=== PATIENT | male | born 1960 | race Caucasian/White ===

== ENCOUNTER 2017-05-22 13:17 | Inpatient (IN) | payer OTHER ==
[~2017-05-22 13:17] MED LIST: LIDOCAINE 2% INJ-PF (20 MG/ML) 10 ML AMPUL ONE; PHENYLEPHRINE HCL INJ/PF 10 MG/1 ML SDV ONE; ROCURONIUM BROMIDE INJ 50 MG/5 ML VIAL IV ONE; VECURONIUM BROMIDE INJ 10 MG VIAL IV ONE
[2017-05-22] MEDS ORDERED: OXYCODONE-ACETAMINOPHEN 5-325 MG TABLET PO ONE (14:13)
[2017-05-22] MEDS ORDERED: PROMETHAZINE HCL 25 MG TABLET PO ONE (14:13)
[2017-05-22] MEDS ORDERED: KETOROLAC TROMETHAMINE INJ/PF 30 MG/1 ML SDV IV ONE (14:14)
--- NOTE | 2017-05-22 14:16 | ER Document Report ---
ED Medical Screen (RME) - General Chief Complaint: Abdominal Pain Stated Complaint: ABDOMINAL PAIN Time Seen by Provider: 05/22/17 14:13 Notes: Patient is complaining of lower center abdominal pain that started yesterday. He has never had this pain previously and has never been told he has any gastrointestinal diseases. He has been a little bit nauseated and belching but no vomiting. [place] as if he might be starting to get constipated, but then he has had 3-4 liquid stools today. No abdominal surgeries. TRAVEL OUTSIDE OF THE [place] IN LAST 30 DAYS: No Past Medical History - Social History Chew tobacco use (# tins/day): No Frequency of alcohol use: None Drug Abuse: None - Past Medical History Cardiac Medical History: Reports: Hx Hypertension Renal/ Medical History: Denies: Hx Peritoneal Dialysis Surgical Hx: Negative - Immunizations Hx Diphtheria, Pertussis, Tetanus Vaccination: Yes Physical Exam - Vital signs Vitals: Resp 16 05/22/17 14:07 Course - Vital Signs Vital signs: Temp Pulse Resp BP Pulse Ox 16 05/22/17 14:07
[2017-05-22 14:44] LABS: ABSOLUTE BASOPHILS # (AUTO) 0.1 10^3/uL (0.0-0.2); ABSOLUTE LYMPHOCYTES (AUTO) 1.5 10^3/uL (0.5-4.7); ABSOLUTE MONOCYTES (AUTO) 1.3 10^3/uL (0.1-1.4); ABSOLUTE NEUT (AUTO) 15.7 10^3/uL (1.7-8.2); BASOPHILS % (AUTO) 0.5 % (0-2); EOSINOPHILS % (AUTO) 0.2 % (0-6); HEMATOCRIT 48.2 % (37.9-51.0); HGB HCT DIFFERENCE -0.2; LYMPHOCYTES % (AUTO) 7.9 % (13-45); MEAN CORPUSCULAR HEMOGLOBIN 30.9 pg (27.0-33.4); MEAN CORPUSCULAR HGB CONC 33.3 g/dL (32.0-36.0); MEAN CORPUSCULAR VOLUME 93 fl (80-97); MONOCYTES % (AUTO) 6.9 % (3-13); RED CELL DISTRIBUTION WIDTH 13.3 % (11.5-14.0); SEGMENTED NEUTROPHILS % (AUTO) 84.5 % (42-78); WHITE BLOOD COUNT 18.5 10^3/uL (4.0-10.5)
[2017-05-22 15:07] LABS: ALANINE AMINOTRANSFERASE 23 U/L (21-72); ALBUMIN 4.1 g/dL (3.5-5.0); ALKALINE PHOSPHATASE 92 U/L (38-126); ANION GAP 13 (5-19); ASPARTATE AMINO TRANSFERASE 35 U/L (17-59); BILIRUBIN,DIRECT 0.5 mg/dL (0.0-0.4); BILIRUBIN,TOTAL 1.4 mg/dL (0.2-1.3); BLOOD UREA NITROGEN 14 mg/dL (7-20); CALCIUM 9.7 mg/dL (8.4-10.2); CARBON DIOXIDE 24 mmol/L (22-30); CHLORIDE 101 mmol/L (98-107); CREATININE RESULT 1.12 mg/dL (0.52-1.25); GLUCOSE 142 mg/dL (75-110); LIPASE 57.3 U/L (23-300); POTASSIUM 4.1 mmol/L (3.6-5.0); SODIUM 138.4 mmol/L (137-145); TOTAL PROTEIN 7.7 g/dL (6.3-8.2)
--- NOTE | 2017-05-22 15:53 | ER Document Report ---
ED GI/ - General Chief Complaint: Abdominal Pain Stated Complaint: ABDOMINAL PAIN Time Seen by Provider: 05/22/17 14:13 Notes: Patient is a 56-year-old male, past medical history hypertension, hyperlipidemia , presents with 1 day of diffuse abdominal pain, worse in his lower abdomen. He thought he was constipated, but had 4 loose bowel movements earlier today. He also having mild nausea and has not been able to urinate today due to intense pain when he tries. He denies fevers, vomiting, flank pain, hematuria, back pain, chest pain or shortness of breath. TRAVEL OUTSIDE OF THE [place] IN LAST 30 DAYS: No - Related Data Allergies/Adverse Reactions: No Known Allergies Allergy (Verified 05/22/17 15:50) Past Medical History - General Information source: Patient - Social History Smoking Status: Current Every Day Smoker Chew tobacco use (# tins/day): No Frequency of alcohol use: None Drug Abuse: None Family History: Reviewed & Not Pertinent Patient has suicidal ideation: No Patient has homicidal ideation: No - Past Medical History Cardiac Medical History: Reports: Hx Hypertension Renal/ Medical History: Denies: Hx Peritoneal Dialysis Surgical Hx: Negative - Immunizations Hx Diphtheria, Pertussis, Tetanus Vaccination: Yes Review of Systems - Review of Systems Notes: REVIEW OF SYSTEMS: CONSTITUTIONAL: -fevers, -chills EENT: -eye pain, -difficulty swallowing, -nasal congestion CARDIOVASCULAR:-chest pain, -syncope. RESPIRATORY: -cough, -SOB GASTROINTESTINAL: +abdominal pain, +nausea, -vomiting, -diarrhea GENITOURINARY: -dysuria, -hematuria MUSCULOSKELETAL: -back pain, -neck pain SKIN: -rash or skin lesions. HEMATOLOGIC: -easy bruising or bleeding. LYMPHATIC: -swollen, enlarged glands. NEUROLOGICAL: -altered mental status or loss of consciousness, -headache, - neurologic symptoms PSYCHIATRIC: -anxiety, -depression. ALL OTHER SYSTEMS REVIEWED AND NEGATIVE. Physical Exam - Vital signs Vitals: Resp 16 05/22/17 14:07 - Notes Notes: PHYSICAL EXAMINATION: GENERAL: Well-appearing, well-nourished and in no acute distress. HEAD: Atraumatic, normocephalic. EYES: Pupils equal round and reactive to light, extraocular movements intact, sclera anicteric, conjunctiva are normal. ENT: nares patent, oropharynx clear without exudates. Moist mucous membranes. NECK: Normal range of motion, supple without lymphadenopathy LUNGS: Breath sounds clear to auscultation bilaterally and equal. No wheezes rales or rhonchi. HEART: Regular rate and rhythm without murmurs ABDOMEN: Moderate tenderness and guarding over LLQ and LUQ. Normal bowel sounds. Distention. EXTREMITIES: Normal range of motion, no pitting or edema. No cyanosis. NEUROLOGICAL: Cranial nerves grossly intact. Normal speech, normal gait. Normal sensory and motor exams. PSYCH: Normal mood, normal affect. SKIN: Warm, Dry, normal turgor, no rashes or lesions noted. Course - Re-evaluation Re-evalutation: 05/22/17 17:45 Pt has evidence of perforated diverticulitis with free air and abscess formation with a leukocytosis. Spoke to Dr. Cardoso and he will be down to see patient. Zosyn started. Patient said that his pain is returning, so will provide another dose of pain medicine. Patient will now be n.p.o. 05/22/17 19:09 - Vital Signs Vital signs: Temp Pulse Resp BP Pulse Ox 101.1 F H 103 H 19 111/65 93 05/22/17 18:08 05/22/17 18:08 05/22/17 18:08 05/22/17 18:08 05/22/17 18:08 - Laboratory Result Diagrams: 05/22/17 14:28 05/22/17 14:28 Laboratory results interpreted by me: 05/22/17 05/22/17 14:28 14:28 WBC 18.5 H Seg Neutrophils % 84.5 H Lymphocytes % 7.9 L Absolute Neutrophils 15.7 H Glucose 142 H Total Bilirubin 1.4 H Direct Bilirubin 0.5 H - Diagnostic Test Radiology reviewed: Image reviewed, Reports reviewed Radiology results interpreted by me: Pt with evidence of perforated diverticulitis with free air and abscess formation. 05/22/17 17:41 Discharge - Discharge Clinical Impression: Perforated diverticulum, Abdominal abscess Condition: Stable Disposition: ADMITTED INPATIENT Admitting Provider: Surgicalist - Su Unit Admitted: Surgical Floor
[2017-05-22] MEDS ORDERED: PIPERACILLIN/TAZOBACTAM 3.375 GM VIAL IV ONE (17:34)
--- NOTE | 2017-05-22 17:46 | RADIOLOGY REPORT (SQ) ---
EXAM DESCRIPTION: CT ABD/PELVIS WITH IV ORAL COMPLETED DATE/TIME: 05/22/2017 5:17 pm REASON FOR STUDY: lower center abdominal pain COMPARISON: None. TECHNIQUE: CT scan of the abdomen and pelvis performed with intravenous and oral contrast using jonathan eliza scanning technique with dynamic intravenous contrast injection. Images reviewed with lung, soft t issue, and bone windows. Reconstructed coronal and sagittal MPR images reviewed. Delayed images for e valuation of the urinary system also acquired. All images stored on PACS. All CT scanners at this facility use dose modulation, iterative reconstruction, and/or weight based d osing when appropriate to reduce radiation dose to as low as reasonably achievable (ALARA). [facility]: Dose Right [facility]: CareDose [facility]: Dose Right [facility]: Teradose 4D [facility]: From The Bench CONTRAST TYPE AND DOSE: contrast/concentration: Isovue 370.00 mg/ml; Total Contrast Delivered: 100.0 ml; Total Saline Delivered: 50.0 ml RENAL FUNCTION: Creatinine measures 1.12 RADIATION DOSE: Up-to-date CT equipment and radiation dose reduction techniques were employed. CTDIv ol: 15.5 - 19.1 mGy. DLP: 2104 mGy-cm. . LIMITATIONS: None. FINDINGS: LOWER CHEST: Dependent subsegmental atelectasis and/ or scarring. LIVER: Normal size. No masses. No dilated ducts. SPLEEN: Normal size. No focal lesions. PANCREAS: No masses. No significant calcifications. No adjacent inflammation or peripancreatic fluid collections. Pancreatic duct not dilated. GALLBLADDER: No identified stones by CT criteria. No inflammatory changes to suggest cholecystitis. ADRENAL GLANDS: No significant masses or asymmetry. RIGHT KIDNEY AND URETER: Tiny low attenuating lesion lower pole too small to adequately characterize but statistically represents a benign cyst. 12 mm possible solid mass versus hyperdense cyst posteri or interpolar region seen on series 3, image 45. 4 mm nonobstructing calculus. No hydronephrosis or hydroureter. LEFT KIDNEY AND URETER: Tiny low attenuating lesion lower pole too small to adequately characterize b ut statistically represents a benign cyst. No solid masses. 7 mm nonobstructing calculus. No hyd ronephrosis or hydroureter. AORTA AND VESSELS: No aneurysm. No dissection. Renal arteries, SMA, celiac without stenosis. RETROPERITONEUM: No retroperitoneal adenopathy, hemorrhage or masses. BOWEL AND PERITONEAL CAVITY: Marked inflammatory change involving the sigmoid colon in the setting of diverticula compatible with acute diverticulitis. There is evidence of perforation with a small vladimir unt of free intraperitoneal air is well as a gas and fluid containing collection between the sigmoid colon and small bowel as seen on series 3, image 70 and series 601, image 45 measuring approximately 4.6 x 2.0 x 1.5 cm compatible with a developing abscess. There is additional marked mural thickening of the adjacent small bowel which is somewhat tethered to the sigmoid colon. No definite entero-col onic fistula identified at this time. APPENDIX: Not visualized. PELVIS: No significant masses. Normal bladder. Mild to moderate fluid. ABDOMINAL WALL: No masses. Small fat containing periumbilical and inguinal hernias. BONES: Degenerative change without fracture or suspicious osseous lesion. OTHER: No other significant finding. IMPRESSION: CT FINDINGS COMPATIBLE WITH PERFORATED DIVERTICULITIS WITH 4.6 CM DEVELOPING ABSCESS AND SMALL AMOUNT OF FREE INTRAPERITONEAL AIR DESCRIBED ABOVE. THERE IS MARKED THICKENING OF ADJACENT SMALL BOWEL WITH TETHERING TO THE SIGMOID COLON WITHOUT DEFINI TE FISTULA IDENTIFIED AT THIS TIME. INCIDENTAL NOTE MADE OF POSSIBLE 12 MM SOLID MASS VERSUS HYPERDENSE CYST RIGHT KIDNEY. RECOMMEND FOL LOW-UP MRI FOR COMPLETE CHARACTERIZATION. COMMENT: Pertinent findings on the imaging study reported as a CRITICAL RESULT to ER PROVIDER at17: 35 on 05/22/2017. Category of Critical Result: FREE INTRAPERITONEAL AIR. TECHNICAL DOCUMENTATION: JOB ID: [id number] Quality ID # [id number]: Final reports with documentation of one or more dose reduction techniques (e.g., Au tomated exposure control, adjustment of the mA and/or kV according to patient size, use of iterative reconstruction technique) 2010 [employer]- All Rights Reserved
[2017-05-22] MEDS ORDERED: NORMAL SALINE 1000 ML 1,000 ML IV ONE (18:07)
[2017-05-22] MEDS ORDERED: MORPHINE SULFATE 10 MG/ML INJ IV ONE (18:08)
[2017-05-22 19:04] LABS: APPEARANCE,URINE SLIGHTLY-CLOUDY; BILIRUBIN,URINE NEGATIVE (NEGATIVE); GLUCOSE, URINE NEGATIVE (NEGATIVE); KETONES,URINE NEGATIVE (NEGATIVE); LEUKOCYTE ESTERASE,URINE NEGATIVE (NEGATIVE); NITRITE,URINE NEGATIVE (NEGATIVE); PROTEIN,URINE 30 mg/dL (NEGATIVE)
[2017-05-22 19:15] LABS: URINE SPECIFIC GRAVITY > 1.060
--- NOTE | 2017-05-22 19:44 | PDOC H&P ---
History of Present Illness Admission Date/PCP: 05/22/17 18:15 GAGANDEEP DE LA [facility]OR[facility]-C Patient complains of: Abdominal pain History of Present Illness: LORAINE GRIGSBY is a 56 year old male Who presents with several day history of generalized abdominal discomfort with some constipation problems. Patient experienced severe mid to lower abdominal pain that began yesterday along with fever and malaise and generalized fatigue. Patient had some loose bowel movements. He notes that the pain gets very severe at times. He denies any prior history of this sort of abdominal pain. Patient denies any bowel habit changes nor other complaints in the past several months until the past several days. There is no family history of colon cancer. However patient has never had a colonoscopy. Patient notes some weight loss over the past several months but he stated that there was very intentional with the significant dietary changes. Past Medical History Cardiac Medical History: Reports: Hypertension Pulmonary Medical History: Reports: None Past Surgical History Past Surgical History: Reports: Other - Septorhinoplasty in the remote past. Social History Smoking Status: Current Every Day Smoker Frequency of Alcohol Use: None Family History Family History: Reviewed & Not Pertinent Parental Family History Reviewed: No Children Family History Reviewed: No Sibling(s) Family History Reviewed.: No Medication/Allergy Allergies/Adverse Reactions: No Known Allergies Allergy (Verified 05/22/17 15:50) Review of Systems Constitutional: PRESENT: as per HPI, chills, fever(s) Physical Exam Vital Signs: Temp Pulse Resp BP Pulse Ox 101.1 F H 103 H 19 111/65 93 05/22/17 18:08 05/22/17 18:08 05/22/17 18:08 05/22/17 18:08 05/22/17 18:08 General appearance: PRESENT: cooperative, mild distress Eye exam: PRESENT: conjunctiva pink Neck exam: PRESENT: other - Supple with no tenderness Respiratory exam: PRESENT: clear to auscultation rory Cardiovascular exam: PRESENT: RRR GI/Abdominal exam: PRESENT: other - Distended, diffuse abdominal tenderness with guarding and rebound worst in the lower abdomen. Extremities exam: PRESENT: other - No swelling. Neurological exam: PRESENT: alert, awake Psychiatric exam: PRESENT: appropriate affect Results Laboratory Results: 05/22/17 18:38 Urine Color LAKISHA Urine Appearance SLIGHTLY-CLOUDY Urine pH 5.0 Ur Specific [place] > 1.060 Urine Protein 30 H Urine Glucose (UA) NEGATIVE Urine Ketones NEGATIVE Urine Blood SMALL H Urine Nitrite NEGATIVE Ur Leukocyte Esterase NEGATIVE Urine WBC (Auto) 4 Urine RBC (Auto) 9 Impressions: Abdomen/Pelvis CT 05/22/17 00:00 IMPRESSION: CT FINDINGS COMPATIBLE WITH PERFORATED DIVERTICULITIS WITH 4.6 CM DEVELOPING ABSCESS AND SMALL AMOUNT OF FREE INTRAPERITONEAL AIR DESCRIBED ABOVE. THERE IS MARKED THICKENING OF ADJACENT SMALL BOWEL WITH TETHERING TO THE SIGMOID COLON WITHOUT DEFINITE FISTULA IDENTIFIED AT THIS TIME. INCIDENTAL NOTE MADE OF POSSIBLE 12 MM SOLID MASS VERSUS HYPERDENSE CYST RIGHT KIDNEY. RECOMMEND FOLLOW-UP MRI FOR COMPLETE CHARACTERIZATION. Assessment & Plan - Diagnosis (1) Perforation of sigmoid colon due to diverticulitis Is this a current diagnosis for this admission?: YesPlan: With diffuse peritonitis. Along with diverticular abscess and possible small bowel involvement as well. In light of his diffuse abdominal tenderness with peritoneal signs, severe leukocytosis, tachycardia and fever, I believe that the best treatment for the patient is surgical intervention. I will plan sigmoid colon resection, possible small bowel resection, drainage of his abscess , with likely end colostomy. I have discussed with the patient the risk and benefits of the procedure including risk of infection, bleeding, adjacent structure injury, recurrence, sepsis, anastomotic leak. patient understands and agrees to proceed with surgery. (2) Renal mass Is this a current diagnosis for this admission?: YesPlan: Solid versus cystic. will need further imaging study after he has recovered.
[2017-05-22] MEDS ORDERED: LEVOFLOXACIN 500 MG/D5W RTU 500 MG/100 ML RTUPB IV ONE (20:00)
[2017-05-22] MEDS ORDERED: MIDAZOLAM 2 MG/2 ML INJ ONE (20:05)
[2017-05-22] MEDS ORDERED: FENTANYL CITRATE INJ/PF 250 MCG/5 ML AMPULE ONE (20:05)
[2017-05-22] MEDS ORDERED: PROPOFOL INJ 200 MG/20 ML VIAL IV ONE (20:05)
[2017-05-22] MEDS ORDERED: HYDROMORPHONE HCL INJ/PF 2 MG/ML AMPULE ONE (20:06)
[2017-05-22] MEDS ORDERED: BUPIVACAINE HCL 0.25 % INJ/PF (2.5 MG/1 ML) 30 ML VIAL ONE (20:22)
[2017-05-22] MEDS ORDERED: METRONIDAZOLE 500 MG/NS RTU 100 ML IV ONE ×2 (21:00→21:28)
[2017-05-22] MEDS ORDERED: LEVOFLOXACIN 750 MG/D5W RTU 750 MG/150 ML RTUPB IV ONE (21:28)
[2017-05-22] MEDS ORDERED: SODIUM BICARBONATE 8.4% INJ 50 MEQ/50 ML DISP.SYRIN ONE ×3 (21:37→21:39)
[2017-05-22 22:58] LABS: ARTERIAL BLOOD BASE EXCESS -0.5 mmol/L; ARTERIAL BLOOD O2 SATURATION 97.1 % (94-98)
[2017-05-23] MEDS ORDERED: BUPIVACAINE HCL 0.5%-EPI 1:200000 INJ/PF 30 ML VIAL ONE (00:02)
[2017-05-23] MEDS ORDERED: BUPIVACAINE HCL 0.5%-EPI 1:200000 INJ/PF 30 ML VIAL INJ ONE (00:05)
[2017-05-23] MEDS ORDERED: EPHEDRINE SULFATE INJ 50 MG/1 ML AMPULE ONE (00:13)
--- NOTE | 2017-05-23 00:36 | Operative Report ---
Operative Report DATE OF SURGERY: 05/23/17 PREOPERATIVE DIAGNOSIS: Perforated diverticulitis, abdominal sepsis. POSTOPERATIVE DIAGNOSIS: Perforated diverticulitis, peritonitis. OPERATION: Exploratory laparotomy, abdominal cavity washout, sigmoid colectomy, end colostomy. SURGEON: MARYELLEN JONES ANESTHESIA: GA TISSUE REMOVED OR ALTERED: sigmoid colon COMPLICATIONS: None ESTIMATED BLOOD LOSS: 500 cc INTRAOPERATIVE FINDINGS: Turbid fluid, foul-smelling throughout the entire abdominal cavity. Small bowel adhesion to markedly inflamed sigmoid colon. PROCEDURE: Informed consent was obtained. Patient was brought to the operating room and placed on the operating room table in the supine position. After satisfactory induction of general anesthesia patient was placed in a low lithotomy position and patient's abdomen and perineum was prepped and draped in usual sterile fashion. A midline abdominal incision was made dissection carried down through the fascia and the peritoneal cavity entered without difficulty. There was copious amounts of turbid foul-smelling fluid throughout the peritoneal cavity consistent with free perforation of the sigmoid colon. There were small bowel adhesions to the sigmoid colon which was markedly inflamed. These adhesions were easily broken apart. The small bowel appeared to be thickened but there was no evidence of fistula and no evidence of small bowel perforation. Sigmoid colon was markedly thickened and inflamed. Sigmoid colon was mobilized. Sigmoid colon was divided at its junction to the descending colon. This portion of the sigmoid colon appear very soft and noninflamed. Inflammation was markedly worse as the dissection was proceeded distally with the sigmoid colon folding in on itself and adhered to the pelvis. The mesentery of the sigmoid colon was taken using a LigaSure device staying close to the bowel. The upper rectum was identified and a plane was created between the mesorectum and the upper rectum. The upper rectum wall was thickened. Using a contour stapling device the upper rectum was divided. The staple line appeared secure. However there appeared to be a weak point on the right side of the staple line therefore this area was re-staple resecting a dogear. The staple line appeared secure. The specimen was passed off the table. A suture was placed at the sigmoid colon end of the specimen. Patient's peritoneal cavity was irrigated with copious amounts of fluid. The remaining colon appears soft and pliable with no inflammatory changes. The small bowel appeared normal with the exception of a thickened segment where it had been adhered to the sigmoid colon. The liver felt smooth. NG tube position was confirmed by palpation in the stomach. At this point patient appear very stable and I considered performing an anastomosis. Hemostasis appeared excellent. And all of the remaining bowel appear well vascularized. However upon introduction of a rectal dilator via the anus it became very apparent to me that the rectal wall was markedly thickened and an anastomosis would be risky in this setting. The rectal stump was marked with a long Prolene suture at the right side and a shorter Prolene suture on the left side both tied very loosely. Seprafilm was placed into the patient's pelvis. A Jhonny-Boston drain was placed in the patient's pelvis and brought out through a separate stab incision in the patient 's right abdomen and sutured in place. Sponge needle and instrument counts were all correct. The omentum was draped over the small bowel. The descending colon and was brought up as an end colostomy in the patient's left lower abdomen and it was matured at the end of the case. Fascia was closed with running PDS suture. Marcaine was injected. Skin was closed loosely and packed with gauze. Patient tolerated procedure well with no apparent complications and was taken to the intensive care unit in stable condition.
[2017-05-23] MEDS ORDERED: MORPHINE SULFATE 10 MG/ML INJ IV PRN (00:42)
[2017-05-23] MEDS ORDERED: PHARMACY COMMUNICATION ORDER MC NR (00:45)
[2017-05-23] MEDS ORDERED: ALBUTEROL SULFATE HFA (90 MCG/PUFF) 8 GM MDI (1 MDI/ER DISP) IH PRN (00:56)
[2017-05-23] MEDS ORDERED: NORMAL SALINE 1000 ML 1,000 ML IV PRN (00:56)
[2017-05-23] MEDS ORDERED: PROPOFOL 100 ML IV ONE (01:06)
[2017-05-23] MEDS ORDERED: MORPHINE SULFATE 10 MG/ML INJ ONE (01:26)
[2017-05-23] MEDS: MORPHINE SULFATE 10 MG/ML INJ IV PRN (02:08)
[2017-05-23] MEDS: PROPOFOL 100 ML IV PRN ×7 (02:35→21:54)
--- NOTE | 2017-05-23 03:21 | RADIOLOGY REPORT (SQ) ---
EXAM DESCRIPTION: CHEST SINGLE VIEW COMPLETED DATE/TIME: 05/23/2017 1:57 am REASON FOR STUDY: ETT, NG placement COMPARISON: CT, 05/22/2017. EXAM PARAMETERS: NUMBER OF VIEWS: One view. TECHNIQUE: Single frontal radiographic view of the chest acquired. RADIATION DOSE: NA LIMITATIONS: None. FINDINGS: LUNGS AND PLEURA: Moderate lung volumes. Small patchiness -atelectasis of the left lower lobe. Mild interstitial markings. MEDIASTINUM AND HILAR STRUCTURES: No masses. Contour normal. HEART AND VASCULAR STRUCTURES: Heart normal in size. Normal vasculature. BONES: No acute findings. HARDWARE: Tip of an endotracheal tube is at the thoracic inlet; consider 3 cm advancement. Adequate appearing NG tube. OTHER: No other significant finding. IMPRESSION: Tip of an endotracheal tube is at the thoracic inlet; consider 3 cm advancement. Small patchiness -atelectasis of the left lower lobe. TECHNICAL DOCUMENTATION: JOB ID: [id number]
[2017-05-23] MEDS ORDERED: METOPROLOL TARTRATE PF/INJ 5 MG/5 ML SDV IV PRN (04:54)
[2017-05-23 05:51] LABS: ARTERIAL BLOOD BASE EXCESS -1.9 mmol/L; ARTERIAL BLOOD O2 SATURATION 96.9 % (94-98)
[2017-05-23] MEDS ORDERED: METOPROLOL TARTRATE PF/INJ 5 MG/5 ML SDV IV ONE (05:52)
[2017-05-23] MEDS ORDERED: METRONIDAZOLE 500 MG/NS RTU 100 ML IV SCH (06:00)
[2017-05-23] MEDS ORDERED: NORMAL SALINE 1000 ML 1,000 ML IV ONE (06:12)
[2017-05-23] MEDS: DEXTROSE 5%-WATER 250 ML with NOREPINEPHRINE BITARTRATE 4 MG IV PRN ×6 (06:27→18:55)
[2017-05-23 06:31] LABS: CREATINE KINASE MB 1.24 ng/mL (<4.55)
[2017-05-23 06:37] LABS: TROPONIN I < 0.012 ng/mL
--- NOTE | 2017-05-23 06:42 | PDOC CONSULTATION ---
Consultation Consult Date: 05/23/17 Attending physician:: MARYELLEN JONES Consult reason:: COPD History of Present Illness Admission Date/PCP: 05/22/17 18:15 SAM DE LA TORRE History of Present Illness: LORAINE GRIGSBY is a 56 year old male Who presents with several day history of generalized abdominal discomfort with some constipation problems. Patient experienced severe mid to lower abdominal pain that began yesterday along with fever and malaise and generalized fatigue. Patient had some loose bowel movements. He notes that the pain gets very severe at times. He denies any prior history of this sort of abdominal pain. Patient denies any bowel habit changes nor other complaints in the past several months until the past several days. There is no family history of colon cancer. However patient has never had a colonoscopy. Patient notes some weight loss over the past several months but he stated that there was very intentional with the significant dietary changes. Patient is seen postoperatively in the ICU intubated and sedated requiring 40% FiO2 and minute ventilation of 14, appearing comfortable on ventilator. Past Medical History Cardiac Medical History: Reports: Hypertension Pulmonary Medical History: Reports: Chronic Obstructive Pulmonary Disease (COPD) Past Surgical History Past Surgical History: Reports: Other - Septorhinoplasty in the remote past. Social History Information Source: [facility] Records Smoking Status: Current Every Day Smoker Frequency of Alcohol Use: None Hx Recreational Drug Use: No Hx Prescription Drug Abuse: No - Advance Directive Resuscitation Status: Full Code Family History Family History: COPD, Hypertension Parental Family History Reviewed: No - Intubated and sedated Children Family History Reviewed: No - Intubated and sedated Sibling(s) Family History Reviewed.: No - Intubated Medication/Allergy Home Medications: Albuterol Sulfate [Proair HFA] 2 puff IH Q6HP PRN 05/22/17 Amlodipine Besylate [Norvasc 10 mg Tablet] 10 mg PO DAILY 05/22/17 Carvedilol [Coreg 6.25 mg Tablet] 6.25 mg PO Q12 05/22/17 Cetirizine HCl [All Day Allergy] 10 mg PO DAILY 05/22/17 Cyclobenzaprine HCl [Flexeril 10 mg Tablet] 10 mg PO BIDP PRN 05/22/17 Ergocalciferol (Vitamin D2) [Drisdol 50,000 Unit (1.25MG) Capsule] 1 cap PO BARLOW@ 1000 05/22/17 Fluticasone/Salmeterol [Advair 500-50 Diskus 28 Dose] 1 inh IH Q12 05/22/17 Levothyroxine Sodium [Synthroid 50 Mcg Tablet] 50 mcg PO DAILY 05/22/17 Lisinopril/Hydrochlorothiazide [Lisinopril-Hctz 20-12.5 mg Tab] 1 each PO DAILY 05/22/17 Multivitamin [Tab-A-Ja] 1 each PO DAILY 05/22/17 Allergies/Adverse Reactions: No Known Allergies Allergy (Verified 05/22/17 15:50) Review of Systems ROS unobtainable: Due to mental status - Intubated and sedated Physical Exam Vital Signs: Temp Pulse Resp BP Pulse Ox 98.1 F 120 H 8 L 91/60 L 99 05/23/17 04:00 05/23/17 02:50 05/23/17 06:07 05/23/17 06:07 05/23/17 06:07 Intake & Output 05/21/17 05/22/17 05/23/17 11:59 11:59 11:59 Intake Total 34319 Output Total 7055 Balance 3554 Weight 114.7 kg General appearance: PRESENT: no acute distress, well-developed, well-nourished Head exam: PRESENT: atraumatic, normocephalic Eye exam: PRESENT: conjunctiva pink, PERRLA. ABSENT: scleral icterus Mouth exam: PRESENT: moist, tongue midline Neck exam: ABSENT: carotid bruit, JVD, lymphadenopathy, thyromegaly Respiratory exam: PRESENT: clear to auscultation rory. ABSENT: rales, rhonchi, wheezes Cardiovascular exam: PRESENT: RRR. ABSENT: diastolic murmur, rubs, systolic murmur Pulses: PRESENT: normal dorsalis pedis pul GI/Abdominal exam: PRESENT: firm, hypoactive bowel sounds, other - Postop dressing intact Rectal exam: PRESENT: deferred Extremities exam: PRESENT: full ROM. ABSENT: calf tenderness, clubbing, pedal edema Skin exam: PRESENT: dry, intact, warm. ABSENT: cyanosis, rash Results Laboratory Results: 05/22/17 05/22/17 05/23/17 18:38 22:30 05:30 Carbonic Acid 1.26 1.01 L HCO3/H2CO3 Ratio 19:1 21:1 ABG pH 7.39 7.43 ABG pCO2 42.0 33.7 L ABG pO2 93.9 86.8 ABG HCO3 24.6 21.8 ABG O2 Saturation 97.1 96.9 ABG Base Excess -0.5 -1.9 FiO2 60% 40% Urine Color LAKISHA Urine Appearance SLIGHTLY-CLOUDY Urine pH 5.0 Ur Specific [place] > 1.060 Urine Protein 30 H Urine Glucose (UA) NEGATIVE Urine Ketones NEGATIVE Urine Blood SMALL H Urine Nitrite NEGATIVE Ur Leukocyte Esterase NEGATIVE Urine WBC (Auto) 4 Urine RBC (Auto) 9 05/23/17 05:55 Creatine Kinase 153 Impressions: Abdomen/Pelvis CT 05/22/17 00:00 IMPRESSION: CT FINDINGS COMPATIBLE WITH PERFORATED DIVERTICULITIS WITH 4.6 CM DEVELOPING ABSCESS AND SMALL AMOUNT OF FREE INTRAPERITONEAL AIR DESCRIBED ABOVE. THERE IS MARKED THICKENING OF ADJACENT SMALL BOWEL WITH TETHERING TO THE SIGMOID COLON WITHOUT DEFINITE FISTULA IDENTIFIED AT THIS TIME. INCIDENTAL NOTE MADE OF POSSIBLE 12 MM SOLID MASS VERSUS HYPERDENSE CYST RIGHT KIDNEY. RECOMMEND FOLLOW-UP MRI FOR COMPLETE CHARACTERIZATION. Chest X-Ray 05/23/17 00:00 IMPRESSION: Tip of an endotracheal tube is at the thoracic inlet; consider 3 cm advancement. Small patchiness -atelectasis of the left lower lobe. Assessment & Plan - Diagnosis (1) COPD (chronic obstructive pulmonary disease) Is this a current diagnosis for this admission?: YesPlan: Albuterol and Atrovent, ABG ordered. anticipation of prolonged intubation will consult pulmonology (2) Severe sepsis Is this a current diagnosis for this admission?: YesPlan: Likely secondary to intra-abdominal process peritonitis, deferred to surgery. IV fluid challenge and levo fed ordered - Time Time Spent: 30 to 50 Minutes
[2017-05-23] MEDS ORDERED: NOREPINEPHRINE BITARTRATE INJ/PF 4 MG/4 ML SDV IV ONE (06:48)
[2017-05-23] MEDS ORDERED: MIDAZOLAM HCL 100 ML IV ONE (07:15)
--- NOTE | 2017-05-23 08:11 | EKG REPORT ---
SEVERITY:- BORDERLINE ECG - SINUS RHYTHM PROBABLE LEFT ATRIAL ABNORMALITY : Confirmed by: Lauro Kay MD 23-May-2017 08:11:10
[2017-05-23] MEDS: IPRATROPIUM/ALBUTEROL 0.5-2.5 MG/3 ML AMPUL NEB SCH ×3 (08:15→20:33)
[2017-05-23] MEDS ORDERED: INSULIN LISPRO 100 UNIT/ML 3 ML VIAL SUBCUT PRN (08:56)
[2017-05-23] MEDS ORDERED: DEXTROSE 40% GEL 15 GM TUBE PO PRN ×2 (08:56)
[2017-05-23] MEDS ORDERED: DEXTROSE 50%-WATER 25 GM/50 ML DISP.SYRIN IV PRN ×2 (08:56)
[2017-05-23] MEDS ORDERED: GLUCAGON,HUMAN RECOMB 1 MG INJ IM PRN (08:56)
[2017-05-23 08:59] LABS: ALANINE AMINOTRANSFERASE 32 U/L (21-72); ALBUMIN 2.3 g/dL (3.5-5.0); ALKALINE PHOSPHATASE 48 U/L (38-126); AMYLASE < 30 U/L (30-110); ANION GAP 10 (5-19); ASPARTATE AMINO TRANSFERASE 20 U/L (17-59); BILIRUBIN,DIRECT 0.6 mg/dL (0.0-0.4); BILIRUBIN,TOTAL 0.8 mg/dL (0.2-1.3); BLOOD UREA NITROGEN 13 mg/dL (7-20); CALCIUM 7.6 mg/dL (8.4-10.2); CARBON DIOXIDE 22 mmol/L (22-30); CHLORIDE 108 mmol/L (98-107); CREATININE RESULT 0.77 mg/dL (0.52-1.25); GLUCOSE 149 mg/dL (75-110); MAGNESIUM 1.7 mg/dL (1.6-2.3); POTASSIUM 3.5 mmol/L (3.6-5.0); SODIUM 139.7 mmol/L (137-145); TOTAL PROTEIN 4.7 g/dL (6.3-8.2)
[2017-05-23] MEDS ORDERED: LORAZEPAM INJ 2 MG/1 ML VIAL IV PRN (08:59)
[2017-05-23 09:10] LABS: CREATINE KINASE MB 1.34 ng/mL (<4.55)
[2017-05-23 09:16] LABS: TROPONIN I < 0.012 ng/mL
[2017-05-23] MEDS ORDERED: PIPERACILLIN SODIUM/TAZOBACTAM 4.5 GM in NORMAL SALINE 100 ML IV ONE (09:30)
[2017-05-23 10:00] LABS: ARTERIAL BLOOD BASE EXCESS 0.2 mmol/L; ARTERIAL BLOOD O2 SATURATION 96.8 % (94-98)
[2017-05-23] MEDS ORDERED: AMLODIPINE BESYLATE 10 MG TABLET PO SCH (10:00)
[2017-05-23] MEDS ORDERED: LEVOFLOXACIN 500 MG/D5W RTU 500 MG/100 ML RTUPB IV SCH (10:00)
[2017-05-23] MEDS ORDERED: (PENDING PHARMACY ID) (Lisinopril/Hydrochlorothiazide [Lisinopril-Hctz 20-12.5 Mg Tab] 1 E PO SCH (10:00)
[2017-05-23] MEDS ORDERED: HYDROCHLOROTHIAZIDE 25 MG TABLET PO SCH (10:00)
[2017-05-23] MEDS ORDERED: CARVEDILOL 6.25 MG TABLET PO SCH (10:00)
[2017-05-23] MEDS ORDERED: LISINOPRIL 10 MG TABLET PO SCH (10:00)
[2017-05-23] MEDS: MAGNESIUM SULFATE/D5W 100 ML IV SCH ×2 (10:11→10:36)
[2017-05-23] MEDS: NORMAL SALINE 1000 ML 1,000 ML IV PRN ×2 (10:13→16:09)
[2017-05-23] MEDS: POTASSI CL 20 MEQ/50 ML RIDER 50 ML IV SCH ×2 (10:31→11:29)
[2017-05-23] MEDS: LEVOTHYROXINE SODIUM 0.05 MG TABLET PO SCH (10:36)
[2017-05-23] MEDS: FENTANYL CITRATE INJ/PF 100 MCG/2 ML AMPUL IV PRN ×2 (10:37→15:46)
[2017-05-23] MEDS: FLUTICASONE/SALMETEROL DISKUS 500-50 MCG/DOSE IH SCH ×2 (10:37→21:55)
[2017-05-23 14:23] LABS: CREATINE KINASE MB 1.27 ng/mL (<4.55)
[2017-05-23 14:24] LABS: TROPONIN I < 0.012 ng/mL
[2017-05-23] MEDS: PIPERACILLIN SODIUM/TAZOBACTAM 4.5 GM in NORMAL SALINE 100 ML IV SCH ×2 (15:41→21:54)
[2017-05-23] MEDS: MIDAZOLAM HCL 100 ML IV PRN (16:09)
[2017-05-23 19:10] LABS: MAGNESIUM 2.4 mg/dL (1.6-2.3); POTASSIUM 3.4 mmol/L (3.6-5.0)
[2017-05-23 19:38] LABS: TROPONIN I < 0.012 ng/mL
[2017-05-24] MEDS: PROPOFOL 100 ML IV PRN ×9 (00:01→22:54)
[2017-05-24] MEDS: NORMAL SALINE 1000 ML 1,000 ML IV PRN ×2 (00:01→08:12)
[2017-05-24] MEDS: MIDAZOLAM HCL 100 ML IV PRN ×3 (00:19→22:21)
[2017-05-24] MEDS: DEXTROSE 5%-WATER 250 ML with NOREPINEPHRINE BITARTRATE 4 MG IV PRN ×2 (00:20)
[2017-05-24] MEDS: PIPERACILLIN SODIUM/TAZOBACTAM 4.5 GM in NORMAL SALINE 100 ML IV SCH ×4 (02:23→22:20)
[2017-05-24] MEDS: IPRATROPIUM/ALBUTEROL 0.5-2.5 MG/3 ML AMPUL NEB SCH ×4 (02:31→20:03)
[2017-05-24 04:16] LABS: ABSOLUTE EOSINOPHILS # (AUTO) 0.4 10^3/uL (0.0-0.6); ABSOLUTE LYMPHOCYTES (AUTO) 1.4 10^3/uL (0.5-4.7); ABSOLUTE MONOCYTES (AUTO) 1.3 10^3/uL (0.1-1.4); ABSOLUTE NEUT (AUTO) 11.7 10^3/uL (1.7-8.2); BASOPHILS % (AUTO) 0.2 % (0-2); EOSINOPHILS % (AUTO) 2.6 % (0-6); HEMATOCRIT 36.5 % (37.9-51.0); HGB HCT DIFFERENCE -0.8; LYMPHOCYTES % (AUTO) 9.2 % (13-45); MEAN CORPUSCULAR HEMOGLOBIN 30.7 pg (27.0-33.4); MEAN CORPUSCULAR HGB CONC 32.6 g/dL (32.0-36.0); MEAN CORPUSCULAR VOLUME 94 fl (80-97); MONOCYTES % (AUTO) 8.6 % (3-13); RED BLOOD COUNT 3.87 10^6/uL (4.35-5.55); RED CELL DISTRIBUTION WIDTH 13.5 % (11.5-14.0); SEGMENTED NEUTROPHILS % (AUTO) 79.4 % (42-78); WHITE BLOOD COUNT 14.7 10^3/uL (4.0-10.5)
[2017-05-24 04:25] LABS: HEMOGLOBIN 11.9 g/dL (13.5-17.0)
[2017-05-24 04:29] LABS: ALANINE AMINOTRANSFERASE 36 U/L (21-72); ALBUMIN 2.3 g/dL (3.5-5.0); ALKALINE PHOSPHATASE 50 U/L (38-126); ANION GAP 6 (5-19); ASPARTATE AMINO TRANSFERASE 28 U/L (17-59); BILIRUBIN,DIRECT 0.5 mg/dL (0.0-0.4); BILIRUBIN,TOTAL 0.6 mg/dL (0.2-1.3); BLOOD UREA NITROGEN 6 mg/dL (7-20); CALCIUM 7.8 mg/dL (8.4-10.2); CARBON DIOXIDE 23 mmol/L (22-30); CHLORIDE 111 mmol/L (98-107); CREATININE RESULT 0.69 mg/dL (0.52-1.25); GLUCOSE 122 mg/dL (75-110); MAGNESIUM 2.3 mg/dL (1.6-2.3); PHOSPHORUS 1.9 mg/dL (2.5-4.5); POTASSIUM 3.5 mmol/L (3.6-5.0); SODIUM 140.1 mmol/L (137-145); TOTAL PROTEIN 4.8 g/dL (6.3-8.2)
[2017-05-24 05:47] LABS: ARTERIAL BLOOD BASE EXCESS -0.1 mmol/L; ARTERIAL BLOOD O2 SATURATION 97.4 % (94-98)
--- NOTE | 2017-05-24 08:02 | RADIOLOGY REPORT (SQ) ---
EXAM DESCRIPTION: CHEST SINGLE VIEW COMPLETED DATE/TIME: 05/24/2017 7:22 am REASON FOR STUDY: sepsis,resp fail COMPARISON: 05/23/2017 EXAM PARAMETERS: NUMBER OF VIEWS: One view. TECHNIQUE: Single frontal radiographic view of the chest acquired. RADIATION DOSE: NA LIMITATIONS: None. FINDINGS: LUNGS AND PLEURA: Patchy densities are again identified in the left lung base. Remaining lung sheppard are clear. No pleural effusions are identified MEDIASTINUM AND HILAR STRUCTURES: No masses. Contour normal. HEART AND VASCULAR STRUCTURES: Heart normal in size. Normal vasculature. BONES: No acute findings. HARDWARE: Endotracheal tube is again identified above the level of the thoracic inlet. NG tube is se en in course to the abdomen. OTHER: No other significant finding. IMPRESSION: No significant interval change. Findings as noted above TECHNICAL DOCUMENTATION: JOB ID: [id number]
[2017-05-24] MEDS: FLUTICASONE/SALMETEROL DISKUS 500-50 MCG/DOSE IH SCH ×2 (09:08→22:14)
[2017-05-24] MEDS: FENTANYL CITRATE INJ/PF 100 MCG/2 ML AMPUL IV PRN ×3 (09:08→17:40)
[2017-05-24] MEDS: LEVOTHYROXINE SODIUM 0.05 MG TABLET PO SCH (09:08)
[2017-05-24] MEDS ORDERED: POTASSIUM PHOS,M-BASIC-D-BASIC 60 MMOL in NORMAL SALINE 1000 ML 1,000 ML IV ONE (09:44)
[2017-05-24] MEDS ORDERED: FENTANYL CITRATE INJ/PF 100 MCG/2 ML AMPUL IV ONE (09:51)
[2017-05-24] MEDS ORDERED: POTASSIUM CHLORIDE 20 MEQ/15 ML UDCUP NG ONE (10:12)
[2017-05-24] MEDS ORDERED: POTASSIUM PHOS M BASIC D BASIC IV ONE (10:12)
[2017-05-24] MEDS ORDERED: NORMAL SALINE IV ONE (10:12)
[2017-05-24] MEDS ORDERED: POTASSIUM PHOS,M-BASIC-D-BASIC 30 MMOL in NORMAL SALINE 500 ML IV ONE (11:30)
--- NOTE | 2017-05-24 12:47 | RADIOLOGY REPORT (SQ) ---
EXAM DESCRIPTION: VENOUS UNILATERAL UPPER COMPLETED DATE/TIME: 05/24/2017 12:33 pm REASON FOR STUDY: redness and swelling COMPARISON: None. TECHNIQUE: Dynamic and static oakley scale and color images acquired of the left arm venous system. Se lected spectral images acquired with additional compression and augmentation maneuvers. The contralat eral subclavian vein and internal jugular vein were also imaged. Images stored on PACS. LIMITATIONS: None. FINDINGS: INTERNAL JUGULAR VEIN: Normal phasicity, compression, augmentation. No visualized echogeni c material on oakley scale. No defects on color images. Comparison opposite side normal. SUBCLAVIAN VEIN: Normal compression, augmentation. No visualized echogenic material on oakley scale. No defects on color images. AXILLARY VEIN: Normal compression, augmentation. No visualized echogenic material on oakley scale. No d efects on color images. BRACHIAL VEIN: Intraluminal thrombus is identified in 1 of 2 brachial veins. BASILIC VEIN: Intraluminal thrombus is identified. CEPHALIC VEIN: Intraluminal thrombus is identified. OTHER: Intraluminal thrombus is identified in both radial veins. IMPRESSION: Extensive deep and superficial venous thrombosis as noted above TECHNICAL DOCUMENTATION: JOB ID: [id number]- All Rights Reserved
[2017-05-24] MEDS ORDERED: ENOXAPARIN SODIUM INJ 120 MG/0.8 ML DISP.SYRIN SUBCUT ONE (13:15)
--- NOTE | 2017-05-24 13:40 | RADIOLOGY REPORT (SQ) ---
EXAM DESCRIPTION: CHEST SINGLE VIEW COMPLETED DATE/TIME: 05/24/2017 1:06 pm REASON FOR STUDY: central line placement Right IJ COMPARISON: 05/24/2017 EXAM PARAMETERS: NUMBER OF VIEWS: One view. TECHNIQUE: Single frontal radiographic view of the chest acquired. RADIATION DOSE: NA LIMITATIONS: None. FINDINGS: LUNGS AND PLEURA: There is increased density in the right upper hemithorax which has the a ppearance of atelectasis of the right upper lobe. Remaining lung sheppard are clear. No pneumothorax is seen. MEDIASTINUM AND HILAR STRUCTURES: Mediastinum is partially obscured due to adjacent densities. HEART AND VASCULAR STRUCTURES: Cardiac silhouette is unchanged in configuration. BONES: No acute findings. HARDWARE: Endotracheal tube has been removed since the previous study. NG tube is seen in course to the abdomen. Central line is seen with its tip projected the level of the right atrium. OTHER: No other significant finding. IMPRESSION: Findings consistent with atelectasis of the right upper lobe. No pneumothorax is seen. Central line is seen with its tip projected at the level of the right atrium. Other findings as not ed above TECHNICAL DOCUMENTATION: JOB ID: [id number]
[2017-05-24 13:41] LABS: PROTHROMBIN TIME 16.6 SEC (11.4-15.4)
[2017-05-24 13:42] LABS: PARTIAL THROMBOPLASTIN TIME 25.6 SEC (23.5-35.8)
[2017-05-24 13:54] LABS: APPEARANCE,URINE CLEAR; BILIRUBIN,URINE NEGATIVE (NEGATIVE); GLUCOSE, URINE NEGATIVE (NEGATIVE); KETONES,URINE NEGATIVE (NEGATIVE); LEUKOCYTE ESTERASE,URINE NEGATIVE (NEGATIVE); NITRITE,URINE NEGATIVE (NEGATIVE); PROTEIN,URINE NEGATIVE (NEGATIVE); URINE SPECIFIC GRAVITY 1.005; UROBILINOGEN,URINE NEGATIVE mg/dL (<2.0)
[2017-05-24] MEDS ORDERED: HEPARIN SOD (PORCINE) 1,000 UNIT/ML 10 ML VIAL IV PRN (13:57)
[2017-05-24] MEDS ORDERED: HEPARIN SODIUM,PORCINE/D5W 25,000 UNIT/250 ML RTUINJ IV PRN (13:57)
--- NOTE | 2017-05-24 20:20 | PDOC PROGRESS REPORT ---
Subjective Progress Note for:: 05/24/17 Subjective:: Patient is intubated and sedated and I am unable to obtain review of systems from him Physical Exam Vital Signs: Temp Pulse Resp BP Pulse Ox 98.9 F 81 23 H 104/60 99 05/24/17 08:00 05/24/17 08:00 05/24/17 08:00 05/24/17 08:00 05/24/17 08:00 Intake & Output 05/23/17 05/24/17 05/25/17 06:59 06:59 06:59 Intake Total 66596 6637 Output Total 7055 4210 245 Balance 4847 2427 -245 Weight 114.7 kg 113.4 kg Exam: GENERAL: No acute distress, responds to painful stimuli HEENT: PERRL, conjunctiva clear, nonicteric, moist mucous membranes, no JVD, endotracheal tube in place RESPIRATORY: CTAB CARDIAC: RRR, nl s1, s2; no murmurs/gallops/rubs ABDOMEN: Midline incision with waffle dressing with sanguinous drainage, PRIMO drain with serosanguineous fluid, ostomy pink and well perfused, stool present in ostomy, soft, nondistended, diffusely tender to palpation, active bowel sounds, no rigidity EXTREMETIES: No cyanosis clubbing; upper extremity grossly edematous and with erythematous streaking on the medial aspect of the humerus NEUROLOGIC: Sedated on mechanical ventilation SKIN: No rashes or lesions Results Laboratory Results: 05/24/17 03:49 05/24/17 03:49 05/23/17 05/23/17 05/23/17 08:00 09:13 18:30 WBC RBC Hgb Hct MCV MCH MCHC RDW Plt Count Seg Neutrophils % Lymphocytes % Monocytes % Eosinophils % Basophils % Absolute Neutrophils Absolute Lymphocytes Absolute Monocytes Absolute Eosinophils Absolute Basophils Carbonic Acid 1.09 HCO3/H2CO3 Ratio 22:1 ABG pH 7.44 ABG pCO2 36.2 ABG pO2 85.0 ABG HCO3 24.0 ABG O2 Saturation 96.8 ABG Base Excess 0.2 FiO2 40% Sodium 139.7 Potassium 3.5 L 3.4 L Chloride 108 H Carbon Dioxide 22 Anion Gap 10 BUN 13 Creatinine 0.77 Est GFR ( Amer) > 60 Est GFR (Non-Af Amer) > 60 Glucose 149 H Calcium 7.6 L Phosphorus Magnesium 1.7 2.4 H Total Bilirubin 0.8 AST 20 ALT 32 Alkaline Phosphatase 48 Total Protein 4.7 L Albumin 2.3 L Amylase < 30 L 05/24/17 05/24/17 05/24/17 03:49 03:49 05:20 WBC 14.7 H RBC 3.87 L Hgb 11.9 L D Hct 36.5 L MCV 94 MCH 30.7 MCHC 32.6 RDW 13.5 Plt Count 228 Seg Neutrophils % 79.4 H Lymphocytes % 9.2 L Monocytes % 8.6 Eosinophils % 2.6 Basophils % 0.2 Absolute Neutrophils 11.7 H Absolute Lymphocytes 1.4 Absolute Monocytes 1.3 Absolute Eosinophils 0.4 Absolute Basophils 0.0 Carbonic Acid 1.25 HCO3/H2CO3 Ratio 19:1 ABG pH 7.39 ABG pCO2 41.6 ABG pO2 98.5 ABG HCO3 24.8 ABG O2 Saturation 97.4 ABG Base Excess -0.1 FiO2 40% Sodium 140.1 Potassium 3.5 L Chloride 111 H Carbon Dioxide 23 Anion Gap 6 BUN 6 L Creatinine 0.69 Est GFR ( Amer) > 60 Est GFR (Non-Af Amer) > 60 Glucose 122 H Calcium 7.8 L Phosphorus 1.9 L Magnesium 2.3 Total Bilirubin 0.6 AST 28 ALT 36 Alkaline Phosphatase 50 Total Protein 4.8 L Albumin 2.3 L Amylase 05/23/17 05/23/17 05/23/17 05:55 05:55 08:00 Creatine Kinase 153 157 CK-MB (CK-2) 1.24 Troponin I < 0.012 05/23/17 05/23/17 05/23/17 08:00 13:25 13:25 Creatine Kinase 144 CK-MB (CK-2) 1.34 1.27 Troponin I < 0.012 < 0.012 05/23/17 05/23/17 18:30 18:55 Creatine Kinase 609 H CK-MB (CK-2) 3.10 Troponin I < 0.012 Impressions: Abdomen/Pelvis CT 05/22/17 00:00 IMPRESSION: CT FINDINGS COMPATIBLE WITH PERFORATED DIVERTICULITIS WITH 4.6 CM DEVELOPING ABSCESS AND SMALL AMOUNT OF FREE INTRAPERITONEAL AIR DESCRIBED ABOVE. THERE IS MARKED THICKENING OF ADJACENT SMALL BOWEL WITH TETHERING TO THE SIGMOID COLON WITHOUT DEFINITE FISTULA IDENTIFIED AT THIS TIME. INCIDENTAL NOTE MADE OF POSSIBLE 12 MM SOLID MASS VERSUS HYPERDENSE CYST RIGHT KIDNEY. RECOMMEND FOLLOW-UP MRI FOR COMPLETE CHARACTERIZATION. Chest X-Ray 05/24/17 06:00 IMPRESSION: No significant interval change. Findings as noted above Assessment & Plan - Diagnosis (1) Severe sepsis with septic shock Is this a current diagnosis for this admission?: YesPlan: Patient is currently being weaned off levophed. Continue to maintain a map of 65 and monitor CVP every 4. Patient on Zosyn for peritonitis. (2) Left upper extremity swelling Is this a current diagnosis for this admission?: YesPlan: Concern for DVT or arterial insufficiency. Remove Artline and IV and obtain stat venous and arterial Dopplers. (3) Hypophosphatemia Is this a current diagnosis for this admission?: YesPlan: Recheck and replete (4) COPD (chronic obstructive pulmonary disease) Qualifiers: COPD type: unspecified COPD Qualified Code(s): J44.9 - Chronic obstructive pulmonary disease, unspecified Is this a current diagnosis for this admission?: YesPlan: Defer to Pulmonary (5) Perforation of sigmoid colon due to diverticulitis Is this a current diagnosis for this admission?: Yes (6) Acute blood loss as cause of postoperative anemia Is this a current diagnosis for this admission?: YesPlan: Type and screen and will send iron studies. Will transfuse below 8. - Time Critical Time spent with patient: 35 or more minutes Medications reviewed and adjusted accordingly: Yes
[2017-05-24] MEDS ORDERED: ENOXAPARIN SODIUM INJ 120 MG/0.8 ML DISP.SYRIN SUBCUT SCH (22:00)
[2017-05-24] MEDS: MORPHINE SULFATE 10 MG/ML INJ IV PRN (22:26)
--- NOTE | 2017-05-24 22:53 | OPERATIVE REPORT E ---
Operative Report NAME: LORAINE GRIGSBY : 1960 AGE: 56Y DATE OF SURGERY: 05/24/2017 ROOM: 611 PREOPERATIVE DIAGNOSIS: Lack of peripheral IV access. POSTOPERATIVE DIAGNOSIS: Lack of peripheral IV access. OPERATION: Placement of right internal jugular central venous line under ultrasound guidance. SURGEON: ISRRAEL CHAN M.D. ANESTHESIA: Local. PROCEDURE: After informed consent was explained from the family, the patient was placed in the supine position. He was already intubated and sedated. The patient's right neck was then prepped and draped in the usual sterile fashion. Using ultrasound, the patient's right internal jugular vein was identified. It was small but was large enough to cannulate. The skin overlying the internal jugular vein was then injected with local anesthesia. Using ultrasound guidance, the needle was then shown to go through the skin and puncture the vein, avoiding the internal carotid artery. There was return of dark, nonpulsatile blood. A guidewire was placed through the needle, and the needle was withdrawn. An incision was then made at the insertion site. A dilator was placed over the guidewire and removed. A triple-lumen catheter was then placed over the guidewire, with the guidewire being removed. There was good aspiration of blood through the port with it being flushed easily. The catheter was sutured to the skin using 3-0 silk suture. A dry dressing was then applied at the insertion site. A stat chest x-ray was ordered. There were no immediate complications. DICTATING PHYSICIAN: LORI CHAN M.D. [id number] PHY#: [id number] ID: [id number] JOB#: [id number] ACCT: [id number] cc:LORI CHAN M.D. >
[2017-05-25] MEDS: IPRATROPIUM/ALBUTEROL 0.5-2.5 MG/3 ML AMPUL NEB SCH ×4 (02:20→19:52)
[2017-05-25] MEDS: PIPERACILLIN SODIUM/TAZOBACTAM 4.5 GM in NORMAL SALINE 100 ML IV SCH ×4 (02:30→22:58)
[2017-05-25] MEDS: HEPARIN SODIUM,PORCINE/D5W 25,000 UNIT/250 ML RTUINJ IV PRN ×2 (03:38→16:58)
[2017-05-25] MEDS: PROPOFOL 100 ML IV PRN ×3 (04:49→12:09)
[2017-05-25 06:37] LABS: ARTERIAL BLOOD BASE EXCESS 0.3 mmol/L; ARTERIAL BLOOD O2 SATURATION 97.1 % (94-98)
[2017-05-25 06:50] LABS: ABSOLUTE EOSINOPHILS # (AUTO) 0.5 10^3/uL (0.0-0.6); ABSOLUTE LYMPHOCYTES (AUTO) 1.6 10^3/uL (0.5-4.7); ABSOLUTE MONOCYTES (AUTO) 0.7 10^3/uL (0.1-1.4); ABSOLUTE NEUT (AUTO) 5.1 10^3/uL (1.7-8.2); BASOPHILS % (AUTO) 0.6 % (0-2); EOSINOPHILS % (AUTO) 6.2 % (0-6); HGB HCT DIFFERENCE -0.6; LYMPHOCYTES % (AUTO) 20.6 % (13-45); MEAN CORPUSCULAR HEMOGLOBIN 31.1 pg (27.0-33.4); MEAN CORPUSCULAR HGB CONC 32.6 g/dL (32.0-36.0); MEAN CORPUSCULAR VOLUME 95 fl (80-97); MONOCYTES % (AUTO) 8.9 % (3-13); RED BLOOD COUNT 3.15 10^6/uL (4.35-5.55); RED CELL DISTRIBUTION WIDTH 13.3 % (11.5-14.0); SEGMENTED NEUTROPHILS % (AUTO) 63.7 % (42-78)
[2017-05-25 07:01] LABS: HEMOGLOBIN 9.8 g/dL (13.5-17.0)
[2017-05-25] MEDS: MIDAZOLAM HCL 100 ML IV PRN (07:09)
[2017-05-25 07:10] LABS: ANION GAP 6 (5-19); BLOOD UREA NITROGEN 7 mg/dL (7-20); CARBON DIOXIDE 24 mmol/L (22-30); CHLORIDE 114 mmol/L (98-107); CREATININE RESULT 0.74 mg/dL (0.52-1.25); GLUCOSE 85 mg/dL (75-110); MAGNESIUM 2.1 mg/dL (1.6-2.3); POTASSIUM 3.8 mmol/L (3.6-5.0); SODIUM 143.7 mmol/L (137-145)
[2017-05-25] MEDS: NORMAL SALINE 1000 ML 1,000 ML IV PRN ×4 (07:10→22:59)
[2017-05-25 07:23] LABS: CALCIUM 7.6 mg/dL (8.4-10.2)
[2017-05-25] MEDS: FENTANYL CITRATE INJ/PF 100 MCG/2 ML AMPUL IV PRN ×3 (07:35→16:58)
--- NOTE | 2017-05-25 07:41 | RADIOLOGY REPORT (SQ) ---
EXAM DESCRIPTION: CHEST SINGLE VIEW COMPLETED DATE/TIME: 05/25/2017 7:01 am REASON FOR STUDY: resp failure COMPARISON: 05/24/2017. EXAM PARAMETERS: NUMBER OF VIEWS: One view. TECHNIQUE: Single frontal radiographic view of the chest acquired. RADIATION DOSE: NA LIMITATIONS: None. FINDINGS: LUNGS AND PLEURA: Small to moderate opacity -a streakiness bilateral lung bases. Moderate lung volume. MEDIASTINUM AND HILAR STRUCTURES: No masses. Contour normal. HEART AND VASCULAR STRUCTURES: Heart normal in size. Normal vasculature. BONES: No acute findings. HARDWARE: Adequate appearing endotracheal tube partially obscured likely adequate NG tube. Tip of a right internal jugular central line at the right atrium ; consider 6 cm retraction. OTHER: No other significant finding. IMPRESSION: Improved aeration of right upper lobe. Small to moderate streakiness -opacity of bilate ral lung bases, left more than right. TECHNICAL DOCUMENTATION: JOB ID: [id number]
[2017-05-25 08:30] LABS: FOLATE 8.53 ng/mL (>2.76)
[2017-05-25] MEDS: FLUTICASONE/SALMETEROL DISKUS 500-50 MCG/DOSE IH SCH ×2 (10:14→22:53)
[2017-05-25] MEDS: LEVOTHYROXINE SODIUM 0.05 MG TABLET PO SCH (10:22)
[2017-05-25] MEDS: FUROSEMIDE INJ/PF 20 MG/2 ML SDV IV SCH ×2 (10:22→22:59)
--- NOTE | 2017-05-25 11:26 | PDOC CONSULTATION ---
Consultation Consult Date: 05/23/17 Attending physician:: ZACHERY SAEED Consult reason:: sepsis/resp failure History of Present Illness Admission Date/PCP: 05/22/17 18:15 [facility] History of Present Illness: LORAINE GRIGSBY is a 56 year old male(all history from chart) Who presents with several day history of generalized abdominal discomfort with some constipation problems. Patient experienced severe mid to lower abdominal pain that began yesterday along with fever and malaise and generalized fatigue. Patient had some loose bowel movements. He notes that the pain gets very severe at times. He denies any prior history of this sort of abdominal pain. Patient denies any bowel habit changes nor other complaints in the past several months until the past several days. There is no family history of colon cancer. However patient has never had a colonoscopy. Patient notes some weight loss over the past several months but he stated that there was very intentional with the significant dietary changes. Patient is seen postoperatively in the ICU intubated and sedated requiring 40% FiO2 and minute ventilation of 14, appearing comfortable on ventilator. Past Medical History Cardiac Medical History: Reports: Hypertension Pulmonary Medical History: Reports: None, Chronic Obstructive Pulmonary Disease (COPD) Past Surgical History Past Surgical History: Reports: Other - Septorhinoplasty in the remote past. Social History Smoking Status: Current Every Day Smoker Frequency of Alcohol Use: None Hx Recreational Drug Use: No Hx Prescription Drug Abuse: No - Advance Directive Resuscitation Status: Full Code Family History Family History: COPD, Hypertension Parental Family History Reviewed: No Children Family History Reviewed: No Sibling(s) Family History Reviewed.: No Medication/Allergy Home Medications: Albuterol Sulfate [Proair HFA] 2 puff IH Q6HP PRN 05/22/17 Amlodipine Besylate [Norvasc 10 mg Tablet] 10 mg PO DAILY 05/22/17 Carvedilol [Coreg 6.25 mg Tablet] 6.25 mg PO Q12 05/22/17 Cetirizine HCl [All Day Allergy] 10 mg PO DAILY 05/22/17 Cyclobenzaprine HCl [Flexeril 10 mg Tablet] 10 mg PO BIDP PRN 05/22/17 Ergocalciferol (Vitamin D2) [Drisdol 50,000 Unit (1.25MG) Capsule] 1 cap PO BARLOW@ 1000 05/22/17 Fluticasone/Salmeterol [Advair 500-50 Diskus 28 Dose] 1 inh IH Q12 05/22/17 Levothyroxine Sodium [Synthroid 50 Mcg Tablet] 50 mcg PO DAILY 05/22/17 Lisinopril/Hydrochlorothiazide [Lisinopril-Hctz 20-12.5 mg Tab] 1 each PO DAILY 05/22/17 Multivitamin [Tab-A-Ja] 1 each PO DAILY 05/22/17 Allergies/Adverse Reactions: No Known Allergies Allergy (Verified 05/22/17 15:50) Review of Systems ROS unobtainable: Due to endotracheal tube Physical Exam Vital Signs: Temp Pulse Resp BP Pulse Ox 98.1 F 120 H 8 L 91/60 L 99 05/23/17 04:00 05/23/17 02:50 05/23/17 06:07 05/23/17 06:07 05/23/17 06:07 Intake & Output 05/22/17 05/23/17 05/24/17 06:59 06:59 06:59 Intake Total 09836 Output Total 7001 Balance 3554 Weight 114.7 kg General appearance: PRESENT: no acute distress, disheveled, obese Head exam: PRESENT: atraumatic, normocephalic Eye exam: PRESENT: conjunctiva pale Mouth exam: PRESENT: dry mucosa, neck supple, tongue midline, other - ET tube Neck exam: ABSENT: carotid bruit, JVD, lymphadenopathy, thyromegaly Respiratory exam: PRESENT: decreased breath sounds, rales, rhonchi, unlabored Cardiovascular exam: PRESENT: RRR, +S1, +S2 Pulses: PRESENT: normal radial pulses GI/Abdominal exam: PRESENT: rebound, other - s/p surgery Rectal exam: PRESENT: deferred Gentrourinary exam: PRESENT: indwelling catheter Musculoskeletal exam: PRESENT: normal inspection Skin exam: PRESENT: dry, warm Results Laboratory Results: 05/22/17 05/22/17 05/23/17 18:38 22:30 05:30 Carbonic Acid 1.26 1.01 L HCO3/H2CO3 Ratio 19:1 21:1 ABG pH 7.39 7.43 ABG pCO2 42.0 33.7 L ABG pO2 93.9 86.8 ABG HCO3 24.6 21.8 ABG O2 Saturation 97.1 96.9 ABG Base Excess -0.5 -1.9 FiO2 60% 40% Urine Color LAKISHA Urine Appearance SLIGHTLY-CLOUDY Urine pH 5.0 Ur Specific [place]ier > 1.060 Urine Protein 30 H Urine Glucose (UA) NEGATIVE Urine Ketones NEGATIVE Urine Blood SMALL H Urine Nitrite NEGATIVE Ur Leukocyte Esterase NEGATIVE Urine WBC (Auto) 4 Urine RBC (Auto) 9 05/23/17 05/23/17 05:55 05:55 Creatine Kinase 153 CK-MB (CK-2) 1.24 Troponin I < 0.012 Impressions: Abdomen/Pelvis CT 05/22/17 00:00 IMPRESSION: CT FINDINGS COMPATIBLE WITH PERFORATED DIVERTICULITIS WITH 4.6 CM DEVELOPING ABSCESS AND SMALL AMOUNT OF FREE INTRAPERITONEAL AIR DESCRIBED ABOVE. THERE IS MARKED THICKENING OF ADJACENT SMALL BOWEL WITH TETHERING TO THE SIGMOID COLON WITHOUT DEFINITE FISTULA IDENTIFIED AT THIS TIME. INCIDENTAL NOTE MADE OF POSSIBLE 12 MM SOLID MASS VERSUS HYPERDENSE CYST RIGHT KIDNEY. RECOMMEND FOLLOW-UP MRI FOR COMPLETE CHARACTERIZATION. Chest X-Ray 05/23/17 00:00 IMPRESSION: Tip of an endotracheal tube is at the thoracic inlet; consider 3 cm advancement. Small patchiness -atelectasis of the left lower lobe. Assessment & Plan - Diagnosis (1) Abdominal abscess Is this a current diagnosis for this admission?: Yes (2) COPD (chronic obstructive pulmonary disease) Qualifiers: COPD type: unspecified COPD Qualified Code(s): J44.9 - Chronic obstructive pulmonary disease, unspecified Is this a current diagnosis for this admission?: Yes (3) Perforation of sigmoid colon due to diverticulitis Is this a current diagnosis for this admission?: YesPlan: as per surgery (4) Severe sepsis with septic shock Is this a current diagnosis for this admission?: YesPlan: vasopressor agents required - Time Critical Time spent with patient: 35 or more minutes - 50 min
--- NOTE | 2017-05-25 11:31 | PDOC PROGRESS REPORT ---
Subjective Progress Note for:: 05/24/17 Subjective:: intubated sedated Physical Exam Vital Signs: Temp Pulse Resp BP Pulse Ox 98.9 F 81 23 H 104/60 99 05/24/17 08:00 05/24/17 08:00 05/24/17 08:00 05/24/17 08:00 05/24/17 08:00 Intake & Output 05/23/17 05/24/17 05/25/17 06:59 06:59 06:59 Intake Total 73029 6637 Output Total 7055 4210 245 Balance 3554 2427 -245 Weight 114.7 kg 113.4 kg General appearance: PRESENT: no acute distress, disheveled Head exam: PRESENT: atraumatic, normocephalic Eye exam: PRESENT: conjunctiva pale Mouth exam: PRESENT: dry mucosa, neck supple, tongue midline, other - ETtube Neck exam: ABSENT: carotid bruit, JVD, lymphadenopathy, thyromegaly Respiratory exam: PRESENT: decreased breath sounds, rhonchi, unlabored Cardiovascular exam: PRESENT: RRR, +S1, +S2 Pulses: PRESENT: normal radial pulses GI/Abdominal exam: PRESENT: other - s/p surgery Rectal exam: PRESENT: deferred Gentrourinary exam: PRESENT: indwelling catheter Musculoskeletal exam: PRESENT: normal inspection Skin exam: PRESENT: dry, warm Results Laboratory Results: 05/24/17 03:49 05/24/17 03:49 05/23/17 05/23/17 05/24/17 09:13 18:30 03:49 WBC 14.7 H RBC 3.87 L Hgb 11.9 L D Hct 36.5 L MCV 94 MCH 30.7 MCHC 32.6 RDW 13.5 Plt Count 228 Seg Neutrophils % 79.4 H Lymphocytes % 9.2 L Monocytes % 8.6 Eosinophils % 2.6 Basophils % 0.2 Absolute Neutrophils 11.7 H Absolute Lymphocytes 1.4 Absolute Monocytes 1.3 Absolute Eosinophils 0.4 Absolute Basophils 0.0 Carbonic Acid 1.09 HCO3/H2CO3 Ratio 22:1 ABG pH 7.44 ABG pCO2 36.2 ABG pO2 85.0 ABG HCO3 24.0 ABG O2 Saturation 96.8 ABG Base Excess 0.2 FiO2 40% Sodium Potassium 3.4 L Chloride Carbon Dioxide Anion Gap BUN Creatinine Est GFR ( Amer) Est GFR (Non-Af Amer) Glucose Calcium Phosphorus Magnesium 2.4 H Total Bilirubin AST ALT Alkaline Phosphatase Total Protein Albumin 05/24/17 05/24/17 03:49 05:20 WBC RBC Hgb Hct MCV MCH MCHC RDW Plt Count Seg Neutrophils % Lymphocytes % Monocytes % Eosinophils % Basophils % Absolute Neutrophils Absolute Lymphocytes Absolute Monocytes Absolute Eosinophils Absolute Basophils Carbonic Acid 1.25 HCO3/H2CO3 Ratio 19:1 ABG pH 7.39 ABG pCO2 41.6 ABG pO2 98.5 ABG HCO3 24.8 ABG O2 Saturation 97.4 ABG Base Excess -0.1 FiO2 40% Sodium 140.1 Potassium 3.5 L Chloride 111 H Carbon Dioxide 23 Anion Gap 6 BUN 6 L Creatinine 0.69 Est GFR ( Amer) > 60 Est GFR (Non-Af Amer) > 60 Glucose 122 H Calcium 7.8 L Phosphorus 1.9 L Magnesium 2.3 Total Bilirubin 0.6 AST 28 ALT 36 Alkaline Phosphatase 50 Total Protein 4.8 L Albumin 2.3 L 05/23/17 05/23/17 05/23/17 05:55 05:55 08:00 Creatine Kinase 153 157 CK-MB (CK-2) 1.24 Troponin I < 0.012 05/23/17 05/23/17 05/23/17 08:00 13:25 13:25 Creatine Kinase 144 CK-MB (CK-2) 1.34 1.27 Troponin I < 0.012 < 0.012 05/23/17 05/23/17 05/24/17 18:30 18:55 03:49 Creatine Kinase 609 H 601 H CK-MB (CK-2) 3.10 Troponin I < 0.012 Impressions: Abdomen/Pelvis CT 05/22/17 00:00 IMPRESSION: CT FINDINGS COMPATIBLE WITH PERFORATED DIVERTICULITIS WITH 4.6 CM DEVELOPING ABSCESS AND SMALL AMOUNT OF FREE INTRAPERITONEAL AIR DESCRIBED ABOVE. THERE IS MARKED THICKENING OF ADJACENT SMALL BOWEL WITH TETHERING TO THE SIGMOID COLON WITHOUT DEFINITE FISTULA IDENTIFIED AT THIS TIME. INCIDENTAL NOTE MADE OF POSSIBLE 12 MM SOLID MASS VERSUS HYPERDENSE CYST RIGHT KIDNEY. RECOMMEND FOLLOW-UP MRI FOR COMPLETE CHARACTERIZATION. Chest X-Ray 05/24/17 06:00 IMPRESSION: No significant interval change. Findings as noted above Assessment & Plan - Diagnosis (1) COPD (chronic obstructive pulmonary disease) Qualifiers: COPD type: unspecified COPD Qualified Code(s): J44.9 - Chronic obstructive pulmonary disease, unspecified Is this a current diagnosis for this admission?: YesPlan: stable would not extubate as patient "could possibly need additional surgical intervention" (2) Severe sepsis with septic shock Is this a current diagnosis for this admission?: Yes
--- NOTE | 2017-05-25 11:47 | PDOC PROGRESS REPORT ---
Subjective Progress Note for:: 05/25/17 Subjective:: Patient is intubated and sedated and I am unable to obtain review of systems from him. No acute events overnight. Physical Exam Vital Signs: Temp Pulse Resp BP Pulse Ox 98.8 F 82 14 96/54 L 99 05/25/17 08:00 05/25/17 07:11 05/25/17 06:32 05/25/17 06:32 05/25/17 06:32 Intake & Output 05/24/17 05/25/17 05/26/17 06:59 06:59 06:59 Intake Total 6637 6167 Output Total 4210 2175 105 Balance 2427 3992 -105 Weight 113.4 kg 112.1 kg Exam: GENERAL: No acute distress, responds to painful stimuli HEENT: PERRL, conjunctiva clear, nonicteric, moist mucous membranes, no JVD, endotracheal tube in place RESPIRATORY: LLL rhonchi; bilateral crackles CARDIAC: RRR, nl s1, s2; no murmurs/gallops/rubs ABDOMEN: Midline incision with waffle dressing with sanguinous drainage and visible packing, PRIMO drain with serosanguineous fluid, ostomy pink and well perfused, liquid stool present in ostomy, soft, nondistended, diffusely tender to palpation, active bowel sounds, no rigidity EXTREMETIES: No cyanosis clubbing; left upper extremity edematous but improved; BLE 1+ edema NEUROLOGIC: Sedated on mechanical ventilation SKIN: No rashes or lesions; evidence of chronic venous stasis bilaterally Results Laboratory Results: 05/25/17 06:15 05/25/17 06:15 05/24/17 05/24/17 05/24/17 10:50 13:15 13:15 WBC RBC Hgb Hct MCV MCH MCHC RDW Plt Count Seg Neutrophils % Lymphocytes % Monocytes % Eosinophils % Basophils % Absolute Neutrophils Absolute Lymphocytes Absolute Monocytes Absolute Eosinophils Absolute Basophils Retic Count (auto) Absolute Retic Carbonic Acid HCO3/H2CO3 Ratio ABG pH ABG pCO2 ABG pO2 ABG HCO3 ABG O2 Saturation ABG Base Excess FiO2 Sodium Potassium Chloride Carbon Dioxide Anion Gap BUN Creatinine Est GFR ( Amer) Est GFR (Non-Af Amer) Glucose Calcium Phosphorus Magnesium Iron TIBC % Saturation Ferritin Vitamin B12 Folate Urine Color YELLOW Urine Appearance CLEAR Urine pH 6.0 Ur Specific [place] 1.005 Urine Protein NEGATIVE Urine Glucose (UA) NEGATIVE Urine Ketones NEGATIVE Urine Blood SMALL H Urine Nitrite NEGATIVE Ur Leukocyte Esterase NEGATIVE Urine WBC (Auto) 0 Urine RBC (Auto) 1 Stool Occult Blood POSITIVE Blood Type A POSITIVE Antibody Screen NEGATIVE 05/24/17 05/25/17 05/25/17 21:45 06:15 06:15 WBC 8.0 RBC 3.15 L Hgb 9.8 L D Hct 30.0 L MCV 95 MCH 31.1 MCHC 32.6 RDW 13.3 Plt Count 223 Seg Neutrophils % 63.7 Lymphocytes % 20.6 Monocytes % 8.9 Eosinophils % 6.2 H Basophils % 0.6 Absolute Neutrophils 5.1 Absolute Lymphocytes 1.6 Absolute Monocytes 0.7 Absolute Eosinophils 0.5 Absolute Basophils 0.0 Retic Count (auto) 1.42 Absolute Retic 0.045 Carbonic Acid HCO3/H2CO3 Ratio ABG pH ABG pCO2 ABG pO2 ABG HCO3 ABG O2 Saturation ABG Base Excess FiO2 Sodium 143.7 Potassium 3.8 Chloride 114 H Carbon Dioxide 24 Anion Gap 6 BUN 7 Creatinine 0.74 Est GFR ( Amer) > 60 Est GFR (Non-Af Amer) > 60 Glucose 85 Calcium 7.6 L Phosphorus 2.7 Magnesium 2.1 Iron 19.0 L TIBC 159 L % Saturation 12 Ferritin 190.00 Vitamin B12 405.0 Folate 8.53 Urine Color Urine Appearance Urine pH Ur Specific [place] Urine Protein Urine Glucose (UA) Urine Ketones Urine Blood Urine Nitrite Ur Leukocyte Esterase Urine WBC (Auto) Urine RBC (Auto) Stool Occult Blood Blood Type Antibody Screen 05/25/17 05/25/17 06:15 06:15 WBC RBC Hgb Hct MCV MCH MCHC RDW Plt Count Seg Neutrophils % Lymphocytes % Monocytes % Eosinophils % Basophils % Absolute Neutrophils Absolute Lymphocytes Absolute Monocytes Absolute Eosinophils Absolute Basophils Retic Count (auto) Absolute Retic Carbonic Acid 1.35 HCO3/H2CO3 Ratio 19:1 ABG pH 7.38 ABG pCO2 44.9 ABG pO2 94.9 ABG HCO3 25.7 ABG O2 Saturation 97.1 ABG Base Excess 0.3 FiO2 50% Sodium Potassium Chloride Carbon Dioxide Anion Gap BUN Creatinine Est GFR ( Amer) Est GFR (Non-Af Amer) Glucose Calcium Phosphorus 3.1 Magnesium Iron TIBC % Saturation Ferritin Vitamin B12 Folate Urine Color Urine Appearance Urine pH Ur Specific [place] Urine Protein Urine Glucose (UA) Urine Ketones Urine Blood Urine Nitrite Ur Leukocyte Esterase Urine WBC (Auto) Urine RBC (Auto) Stool Occult Blood Blood Type Antibody Screen 05/23/17 05/23/17 05/23/17 05:55 05:55 08:00 Creatine Kinase 153 157 CK-MB (CK-2) 1.24 Troponin I < 0.012 05/23/17 05/23/17 05/23/17 08:00 13:25 13:25 Creatine Kinase 144 CK-MB (CK-2) 1.34 1.27 Troponin I < 0.012 < 0.012 05/23/17 05/23/17 05/24/17 18:30 18:55 03:49 Creatine Kinase 609 H 601 H CK-MB (CK-2) 3.10 Troponin I < 0.012 Impressions: Abdomen/Pelvis CT 05/22/17 00:00 IMPRESSION: CT FINDINGS COMPATIBLE WITH PERFORATED DIVERTICULITIS WITH 4.6 CM DEVELOPING ABSCESS AND SMALL AMOUNT OF FREE INTRAPERITONEAL AIR DESCRIBED ABOVE. THERE IS MARKED THICKENING OF ADJACENT SMALL BOWEL WITH TETHERING TO THE SIGMOID COLON WITHOUT DEFINITE FISTULA IDENTIFIED AT THIS TIME. INCIDENTAL NOTE MADE OF POSSIBLE 12 MM SOLID MASS VERSUS HYPERDENSE CYST RIGHT KIDNEY. RECOMMEND FOLLOW-UP MRI FOR COMPLETE CHARACTERIZATION. Venous Doppler Study 05/24/17 00:00 IMPRESSION: Extensive deep and superficial venous thrombosis as noted above Chest X-Ray 05/25/17 06:00 IMPRESSION: Improved aeration of right upper lobe. Small to moderate streakiness -opacity of bilateral lung bases, left more than right. Assessment & Plan - Diagnosis (1) Severe sepsis with septic shock Is this a current diagnosis for this admission?: YesPlan: Patient is currently maintained off levophed. Continue to maintain a map of 65 and monitor CVP every 4. Patient on Zosyn for peritonitis and aspiration pneumonia. Patient with significant vomiting prior to admission and evidence of pneumonia radiographically, now with increased secretions. Pending cultures. Overall appears to be improving with improved white count. (2) COPD (chronic obstructive pulmonary disease) Qualifiers: COPD type: unspecified COPD Qualified Code(s): J44.9 - Chronic obstructive pulmonary disease, unspecified Is this a current diagnosis for this admission?: YesPlan: Defer to Pulmonary (3) Perforation of sigmoid colon due to diverticulitis Is this a current diagnosis for this admission?: YesPlan: Defer managment of this and problems relating to this to the primary surgical team. (4) Acute blood loss as cause of postoperative anemia Is this a current diagnosis for this admission?: YesPlan: Type and screened. Will transfuse below 8. Multifactorial anemia with iron deficiency and acute blood loss. (5) Iron (Fe) deficiency anemia Qualifiers: Iron deficiency anemia type: unspecified iron deficiency Qualified Code(s): D50.9 - Iron deficiency anemia, unspecified Is this a current diagnosis for this admission?: YesPlan: Will replete once patient is no longer septic and is able to take PO. Plan to transfuse if he falls below Hgb 8. (6) Renal mass Is this a current diagnosis for this admission?: YesPlan: Will obtain abdominal MRI after patient is extubated. Have a strong suspicion for malignancy in light of patient's iron deficiency anemia and extensive LUE DVTs. (7) Aspiration pneumonia Qualifiers: Aspiration pneumonia type: due to vomit Laterality: bilateral Lung location: lower lobe of lung Qualified Code(s): J69.0 - Pneumonitis due to inhalation of food and vomit Is this a current diagnosis for this admission?: YesPlan: Currently pending sputum culture. Responding well to Zosyn day #2. Continue nebulized treatments. (8) Hypophosphatemia Is this a current diagnosis for this admission?: YesPlan: Improved - Time Time Spent with patient: 25-34 minutes Medications reviewed and adjusted accordingly: Yes
[2017-05-25] MEDS ORDERED: ACETYLCYSTEINE 20% SOLN 800 MG/4 ML VIAL.NEB NEB ONE (13:30)
[2017-05-25] MEDS: MORPHINE SULFATE 10 MG/ML INJ IV PRN ×3 (15:11→23:40)
[2017-05-25] MEDS: ACETYLCYSTEINE 20% SOLN 800 MG/4 ML VIAL.NEB NEB SCH (19:52)
--- NOTE | 2017-05-25 23:33 | PROGRESS NOTE E ---
Progress Note NAME: LORAINE GRIGSBY : 1960 AGE: 56Y DATE: 05/25/2017 ROOM: 611 SUBJECTIVE: The patient is postoperative day 1 from a Keegan's procedure for perforated diverticulitis. The patient currently is in the Intensive Care Unit intubated. The patient is intubated. He is sedated and only responds to pain. OBJECTIVE: VITAL SIGNS: Temperature is 99.5, pulse 93, blood pressure 111/71. The patient's abdominal incision is clean without any evidence of infection. The ostomy is viable with gas in the bag. PRIMO drains are serous and draining approximately 80 mL. ASSESSMENT: STATUS POST KEEGAN'S PROCEDURE, POSTOPERATIVE DAY 1. His white blood cell count is down to 15,000 from 18,000. He is currently being weaned off the ventilator. His colostomy is functioning, however he is still having bilious drainage out through the NG tube. PLAN: 1. Extubate when stable enough. 2. Continue IV antibiotics. 3. Ostomy care. DICTATING PHYSICIAN: LORI CHAN M.D. [id number] PHY#: [id number] ID: [id number] JOB#: [id number] ACCT: [id number] cc: >
--- NOTE | 2017-05-26 00:14 | PROGRESS NOTE E ---
Progress Note NAME: LORAINE GRIGSBY : 1960 AGE: 56Y DATE: 05/25/2017 ROOM: 611 SUBJECTIVE: The patient is postoperative day 2 from a Keegan's procedure for perforated diverticulitis with peritonitis. The patient is now extubated. He is able to communicate, although he is drowsy. OBJECTIVE: VITAL SIGNS: Temperature 98, pulse 95, blood pressure 134/77, respiratory rate is 18. Gastric output is 190. PRIMO drain is 30. The patient's abdominal incision is clean. Ostomy has stool in the bag. DIAGNOSTIC DATA: White blood cell count of 8, hemoglobin of 10, ASSESSMENT: 1. PERFORATED DIVERTICULITIS, STATUS POST KEEGAN'S PROCEDURE, POSTOPERATIVE DAY 2. The patient continues to make improvements. He is now extubated today and is tolerating that well. His white blood cell count is down to normal on IV antibiotics. His ostomy is functioning, however he is still having bilious output out through his NG tube. At this time, continue n.p.o., NG tube, IV fluids and IV antibiotics. 2. RENAL MASS, WHICH WILL NEED TO BE WORKED UP AN OUTPATIENT. 3. DEEP VENOUS THROMBOSIS OF THE LEFT ARM, WHICH HE CURRENTLY IS ON HEPARIN. PLAN: 1. Continue IV fluids, IV antibiotics, n.p.o. and NG tube. 2. Continue heparin drip for deep venous thrombosis. DICTATING PHYSICIAN: LORI CHAN M.D. [id number] PHY#: [id number] ID: [id number] JOB#: [id number] ACCT: [id number] cc: >
[2017-05-26] MEDS: IPRATROPIUM/ALBUTEROL 0.5-2.5 MG/3 ML AMPUL NEB SCH ×4 (02:36→20:43)
[2017-05-26] MEDS: PIPERACILLIN SODIUM/TAZOBACTAM 4.5 GM in NORMAL SALINE 100 ML IV SCH ×4 (03:32→21:01)
[2017-05-26] MEDS: HEPARIN SODIUM,PORCINE/D5W 25,000 UNIT/250 ML RTUINJ IV PRN (05:18)
[2017-05-26] MEDS: NORMAL SALINE 1000 ML 1,000 ML IV PRN (05:19)
[2017-05-26] MEDS: MORPHINE SULFATE 10 MG/ML INJ IV PRN ×3 (05:19→15:54)
[2017-05-26 07:14] LABS: HEMATOCRIT 31.8 % (37.9-51.0); HEMOGLOBIN 10.7 g/dL (13.5-17.0); HGB HCT DIFFERENCE 0.3; MEAN CORPUSCULAR HEMOGLOBIN 31.8 pg (27.0-33.4); MEAN CORPUSCULAR HGB CONC 33.6 g/dL (32.0-36.0); MEAN CORPUSCULAR VOLUME 95 fl (80-97); RED BLOOD COUNT 3.37 10^6/uL (4.35-5.55); RED CELL DISTRIBUTION WIDTH 13.1 % (11.5-14.0); WHITE BLOOD COUNT 9.6 10^3/uL (4.0-10.5)
[2017-05-26 07:19] LABS: APPEARANCE,URINE CLEAR; BILIRUBIN,URINE NEGATIVE (NEGATIVE); GLUCOSE, URINE NEGATIVE (NEGATIVE); KETONES,URINE 20 mg/dL (NEGATIVE); LEUKOCYTE ESTERASE,URINE NEGATIVE (NEGATIVE); NITRITE,URINE NEGATIVE (NEGATIVE); PROTEIN,URINE NEGATIVE (NEGATIVE); URINE SPECIFIC GRAVITY 1.013; UROBILINOGEN,URINE NEGATIVE mg/dL (<2.0)
--- NOTE | 2017-05-26 07:34 | RADIOLOGY REPORT (SQ) ---
EXAM DESCRIPTION: CHEST SINGLE VIEW COMPLETED DATE/TIME: 05/26/2017 6:33 am REASON FOR STUDY: resp failure COMPARISON: 05/25/2017. EXAM PARAMETERS: NUMBER OF VIEWS: One view. TECHNIQUE: Single frontal radiographic view of the chest acquired. RADIATION DOSE: NA LIMITATIONS: None. FINDINGS: LUNGS AND PLEURA: Small left basilar opacity -effusion. Small streakiness of bilateral kirk ng bases. Moderate lung volumes. Mild interstitial markings. MEDIASTINUM AND HILAR STRUCTURES: No masses. Contour normal. HEART AND VASCULAR STRUCTURES: Heart normal in size. Normal vasculature. BONES: No acute findings. HARDWARE: Tip of a right internal jugular central line at the inferior cavoatrial junction. Adequate appearing NG tube. Interval extubation OTHER: No other significant finding. IMPRESSION: Interval extubation. Otherwise, no significant interval change including bibasilar opac ities. TECHNICAL DOCUMENTATION: JOB ID: [id number]
[2017-05-26 07:54] LABS: ANION GAP 8 (5-19); BLOOD UREA NITROGEN 8 mg/dL (7-20); CARBON DIOXIDE 25 mmol/L (22-30); CHLORIDE 112 mmol/L (98-107); CREATININE RESULT 0.63 mg/dL (0.52-1.25); GLUCOSE 87 mg/dL (75-110); POTASSIUM 3.5 mmol/L (3.6-5.0); SODIUM 144.9 mmol/L (137-145)
[2017-05-26] MEDS: ACETYLCYSTEINE 20% SOLN 800 MG/4 ML VIAL.NEB NEB SCH ×2 (08:41→20:43)
[2017-05-26] MEDS ORDERED: NORMAL SALINE 1000 ML 1,000 ML IV PRN (08:56)
[2017-05-26] MEDS ORDERED: FUROSEMIDE INJ/PF 20 MG/2 ML SDV IV ONE (09:15)
[2017-05-26] MEDS: FUROSEMIDE INJ/PF 20 MG/2 ML SDV IV SCH ×2 (10:59→21:37)
[2017-05-26] MEDS: LEVOTHYROXINE SODIUM 0.05 MG TABLET PO SCH (10:59)
[2017-05-26] MEDS: ENOXAPARIN SODIUM INJ 120 MG/0.8 ML DISP.SYRIN SUBCUT SCH ×2 (11:00→21:35)
[2017-05-26] MEDS: FLUTICASONE/SALMETEROL DISKUS 500-50 MCG/DOSE IH SCH ×2 (11:02→21:52)
[2017-05-26] MEDS: POTASSI CL 20 MEQ/D5-1/2NS 1L 1,000 ML IV PRN ×2 (11:03→23:55)
--- NOTE | 2017-05-26 11:24 | PDOC PROGRESS REPORT ---
Subjective Progress Note for:: 05/26/17 Subjective:: Successfully extubated yesterday. He is doing well today. Patient denies fever, chills, chest pain, shortness of breath, nausea, vomiting. He reports his pain is well controlled. Physical Exam Vital Signs: Temp Pulse Resp BP Pulse Ox 98.5 F 87 15 126/75 H 97 05/26/17 06:00 05/26/17 02:40 05/26/17 06:30 05/26/17 06:03 05/26/17 06:30 Intake & Output 05/25/17 05/26/17 05/27/17 06:59 06:59 06:59 Intake Total 6165 2839 Output Total 9723 9492 Balance 3992 -9743 Weight 112.1 kg Exam: GENERAL: No acute distress, A+Ox3 HEENT: PERRL, conjunctiva clear, nonicteric, moist mucous membranes, no JVD RESPIRATORY: CTAB CARDIAC: RRR, nl s1, s2; no murmurs/gallops/rubs ABDOMEN: Midline incision with waffle dressing with sanguinous drainage and visible packing, PRIMO drain with serosanguineous fluid, ostomy pink and well perfused, liquid stool present in ostomy, soft, nondistended, appropriately diffusely tender to palpation, active bowel sounds, no rigidity : cano catheter in place, scrotal edema EXTREMETIES: No cyanosis, clubbing, edema; left upper extremity edematous but improved NEUROLOGIC: A+Ox3, CN grossly intact without focal deficits SKIN: No rashes or lesions; evidence of chronic venous stasis bilaterally Psych: normal mood and affect Results Laboratory Results: 05/26/17 06:20 05/25/17 05/25/17 05/26/17 06:15 06:15 06:20 WBC 9.6 RBC 3.37 L Hgb 10.7 L Hct 31.8 L MCV 95 MCH 31.8 MCHC 33.6 RDW 13.1 Plt Count 257 Sodium 143.7 Potassium 3.8 Chloride 114 H Carbon Dioxide 24 Anion Gap 6 BUN 7 Creatinine 0.74 Est GFR ( Amer) > 60 Est GFR (Non-Af Amer) > 60 Glucose 85 Calcium 7.6 L Phosphorus 3.1 Magnesium 2.1 Iron 19.0 L TIBC 159 L % Saturation 12 Ferritin 190.00 Vitamin B12 405.0 Folate 8.53 Urine Color Urine Appearance Urine pH Ur Specific [employer] Urine Protein Urine Glucose (UA) Urine Ketones Urine Blood Urine Nitrite Ur Leukocyte Esterase Urine WBC (Auto) Urine RBC (Auto) Stool Occult Blood 05/26/17 05/26/17 06:20 06:20 WBC RBC Hgb Hct MCV MCH MCHC RDW Plt Count Sodium Potassium Chloride Carbon Dioxide Anion Gap BUN Creatinine Est GFR ( Amer) Est GFR (Non-Af Amer) Glucose Calcium Phosphorus Magnesium Iron TIBC % Saturation Ferritin Vitamin B12 Folate Urine Color YELLOW Urine Appearance CLEAR Urine pH 7.0 Ur Specific [employer] 1.013 Urine Protein NEGATIVE Urine Glucose (UA) NEGATIVE Urine Ketones 20 H Urine Blood SMALL H Urine Nitrite NEGATIVE Ur Leukocyte Esterase NEGATIVE Urine WBC (Auto) 0 Urine RBC (Auto) 14 Stool Occult Blood POSITIVE 05/23/17 05/23/17 05/23/17 05:55 05:55 08:00 Creatine Kinase 153 157 CK-MB (CK-2) 1.24 Troponin I < 0.012 05/23/17 05/23/17 05/23/17 08:00 13:25 13:25 Creatine Kinase 144 CK-MB (CK-2) 1.34 1.27 Troponin I < 0.012 < 0.012 05/23/17 05/23/17 05/24/17 18:30 18:55 03:49 Creatine Kinase 609 H 601 H CK-MB (CK-2) 3.10 Troponin I < 0.012 Impressions: Abdomen/Pelvis CT 05/22/17 00:00 IMPRESSION: CT FINDINGS COMPATIBLE WITH PERFORATED DIVERTICULITIS WITH 4.6 CM DEVELOPING ABSCESS AND SMALL AMOUNT OF FREE INTRAPERITONEAL AIR DESCRIBED ABOVE. THERE IS MARKED THICKENING OF ADJACENT SMALL BOWEL WITH TETHERING TO THE SIGMOID COLON WITHOUT DEFINITE FISTULA IDENTIFIED AT THIS TIME. INCIDENTAL NOTE MADE OF POSSIBLE 12 MM SOLID MASS VERSUS HYPERDENSE CYST RIGHT KIDNEY. RECOMMEND FOLLOW-UP MRI FOR COMPLETE CHARACTERIZATION. Venous Doppler Study 05/24/17 00:00 IMPRESSION: Extensive deep and superficial venous thrombosis as noted above Assessment & Plan - Diagnosis (1) Severe sepsis with septic shock Is this a current diagnosis for this admission?: YesPlan: Zosyn day #4 Patient is currently maintained off levophed. Continue to maintain a map of 65. Patient on Zosyn for peritonitis and aspiration pneumonia. Cultures negative but obtained after antibiotics. Overall appears to be improving with improved white count. (2) COPD (chronic obstructive pulmonary disease) Qualifiers: COPD type: unspecified COPD Qualified Code(s): J44.9 - Chronic obstructive pulmonary disease, unspecified Is this a current diagnosis for this admission?: YesPlan: Defer to Pulmonary (3) Perforation of sigmoid colon due to diverticulitis Is this a current diagnosis for this admission?: YesPlan: Defer managment of this and problems relating to this to the primary surgical team. (4) Acute blood loss as cause of postoperative anemia Is this a current diagnosis for this admission?: YesPlan: Type and screened. Will transfuse below 8. Multifactorial anemia with iron deficiency and acute blood loss. (5) Iron (Fe) deficiency anemia Qualifiers: Iron deficiency anemia type: unspecified iron deficiency Qualified Code(s): D50.9 - Iron deficiency anemia, unspecified Is this a current diagnosis for this admission?: YesPlan: Give venofer x1 Plan to transfuse if he falls below Hgb 8. (6) Renal mass Is this a current diagnosis for this admission?: YesPlan: Will obtain abdominal MRI as an outpatient. Have a strong suspicion for malignancy in light of patient's iron deficiency anemia and extensive LUE DVTs. Have discussed this with patient and expressed to him the importance of follow up. (7) Aspiration pneumonia Qualifiers: Aspiration pneumonia type: due to vomit Laterality: bilateral Lung location: lower lobe of lung Qualified Code(s): J69.0 - Pneumonitis due to inhalation of food and vomit Is this a current diagnosis for this admission?: YesPlan: Sputum culture negative. Question infiltrate v. edema Responding well to Zosyn day #2. Continue nebulized treatments. (8) Hypophosphatemia Is this a current diagnosis for this admission?: Yes - Time Time Spent with patient: 35 or more minutes Medications reviewed and adjusted accordingly: Yes Anticipated discharge: Home with Homehealth
[2017-05-26 13:42] LABS: APPEARANCE,URINE CLEAR; BILIRUBIN,URINE NEGATIVE (NEGATIVE); GLUCOSE, URINE NEGATIVE (NEGATIVE); KETONES,URINE 20 mg/dL (NEGATIVE); LEUKOCYTE ESTERASE,URINE NEGATIVE (NEGATIVE); NITRITE,URINE NEGATIVE (NEGATIVE); PROTEIN,URINE NEGATIVE (NEGATIVE); URINE SPECIFIC GRAVITY 1.006; UROBILINOGEN,URINE NEGATIVE mg/dL (<2.0)
--- NOTE | 2017-05-26 16:09 | PDOC PROGRESS REPORT ---
Subjective Progress Note for:: 05/26/17 Subjective:: Patient seen this morning and this afternoon. Feels better once NG tube out. Nasogastric tube removed midafternoon. Ostomy with brisk output. Patient has been converted from heparin drip to Lovenox Physical Exam Vital Signs: Temp Pulse Resp BP Pulse Ox 97.5 F 83 16 127/74 H 95 05/26/17 12:00 05/26/17 14:00 05/26/17 14:03 05/26/17 14:03 05/26/17 14:03 Intake & Output 05/25/17 05/26/17 05/27/17 06:59 06:59 06:59 Intake Total 6167 5915 Output Total 2175 7122 2875 Balance 3992 -1200 -2875 Weight 112.1 kg General appearance: PRESENT: no acute distress GI/Abdominal exam: PRESENT: other - Midline dressing removed; intervening open areas of incision inspected, no drainage no foul smell. Abdomen is soft not distended. There is liquid stool and gas in the ostomy Results Laboratory Results: 05/26/17 06:20 05/26/17 06:20 05/25/17 05/26/17 05/26/17 06:15 06:20 06:20 WBC 9.6 RBC 3.37 L Hgb 10.7 L Hct 31.8 L MCV 95 MCH 31.8 MCHC 33.6 RDW 13.1 Plt Count 257 Sodium 144.9 Potassium 3.5 L Chloride 112 H Carbon Dioxide 25 Anion Gap 8 BUN 8 Creatinine 0.63 Est GFR ( Amer) > 60 Est GFR (Non-Af Amer) > 60 Glucose 87 Calcium 8.0 L Magnesium 2.0 Transferrin 85 L Urine Color Urine Appearance Urine pH Ur Specific [place] Urine Protein Urine Glucose (UA) Urine Ketones Urine Blood Urine Nitrite Ur Leukocyte Esterase Urine WBC (Auto) Urine RBC (Auto) Stool Occult Blood 05/26/17 05/26/17 05/26/17 06:20 06:20 13:20 WBC RBC Hgb Hct MCV MCH MCHC RDW Plt Count Sodium Potassium Chloride Carbon Dioxide Anion Gap BUN Creatinine Est GFR ( Amer) Est GFR (Non-Af Amer) Glucose Calcium Magnesium Transferrin Urine Color YELLOW [place]AW Urine Appearance CLEAR CLEAR Urine pH 7.0 7.0 Ur Specific [place] 1.013 1.006 Urine Protein NEGATIVE NEGATIVE Urine Glucose (UA) NEGATIVE NEGATIVE Urine Ketones 20 H 20 H Urine Blood SMALL H NEGATIVE Urine Nitrite NEGATIVE NEGATIVE Ur Leukocyte Esterase NEGATIVE NEGATIVE Urine WBC (Auto) 0 0 Urine RBC (Auto) 14 1 Stool Occult Blood POSITIVE 05/24/17 16:15 Tracheal Aspirate Gram Stain - Final 05/24/17 16:15 Tracheal Aspirate Sputum Culture - Final REDUCED NORMAL [place] 05/23/17 05/23/17 05/23/17 05:55 05:55 08:00 Creatine Kinase 153 157 CK-MB (CK-2) 1.24 Troponin I < 0.012 05/23/17 05/23/17 05/23/17 08:00 13:25 13:25 Creatine Kinase 144 CK-MB (CK-2) 1.34 1.27 Troponin I < 0.012 < 0.012 05/23/17 05/23/17 05/24/17 18:30 18:55 03:49 Creatine Kinase 609 H 601 H CK-MB (CK-2) 3.10 Troponin I < 0.012 Impressions: Abdomen/Pelvis CT 05/22/17 00:00 IMPRESSION: CT FINDINGS COMPATIBLE WITH PERFORATED DIVERTICULITIS WITH 4.6 CM DEVELOPING ABSCESS AND SMALL AMOUNT OF FREE INTRAPERITONEAL AIR DESCRIBED ABOVE. THERE IS MARKED THICKENING OF ADJACENT SMALL BOWEL WITH TETHERING TO THE SIGMOID COLON WITHOUT DEFINITE FISTULA IDENTIFIED AT THIS TIME. INCIDENTAL NOTE MADE OF POSSIBLE 12 MM SOLID MASS VERSUS HYPERDENSE CYST RIGHT KIDNEY. RECOMMEND FOLLOW-UP MRI FOR COMPLETE CHARACTERIZATION. Venous Doppler Study 05/24/17 00:00 IMPRESSION: Extensive deep and superficial venous thrombosis as noted above Chest X-Ray 05/26/17 06:00 IMPRESSION: Interval extubation. Otherwise, no significant interval change including bibasilar opacities. Assessment & Plan - Diagnosis (1) Abdominal abscess Is this a current diagnosis for this admission?: YesPlan: Patient is 4 days status post exploratory laparotomy, sigmoid colectomy colostomy for perforated diverticulitis, doing well. Plan: 1. Discontinue nasogastric tube 2. Discontinue right lower quadrant and left lower quadrant drains which was done this morning. 3. Transfer to lower acuity floor 4. May start clear liquids later tonight or tomorrow.
[2017-05-27] MEDS: MORPHINE SULFATE 10 MG/ML INJ IV PRN ×4 (00:13→21:55)
[2017-05-27] MEDS: IPRATROPIUM/ALBUTEROL 0.5-2.5 MG/3 ML AMPUL NEB SCH ×2 (01:13→07:52)
[2017-05-27] MEDS: PIPERACILLIN SODIUM/TAZOBACTAM 4.5 GM in NORMAL SALINE 100 ML IV SCH ×4 (02:49→21:43)
[2017-05-27] MEDS: ACETYLCYSTEINE 20% SOLN 800 MG/4 ML VIAL.NEB NEB SCH (07:52)
[2017-05-27] MEDS: ENOXAPARIN SODIUM INJ 120 MG/0.8 ML DISP.SYRIN SUBCUT SCH ×2 (10:08→21:42)
[2017-05-27] MEDS: LEVOTHYROXINE SODIUM 0.05 MG TABLET PO SCH (10:08)
[2017-05-27] MEDS: PROMETHAZINE HCL INJ 25 MG/1 ML VIAL IV PRN (10:09)
[2017-05-27] MEDS: FUROSEMIDE INJ/PF 20 MG/2 ML SDV IV SCH (10:09)
[2017-05-27] MEDS: FLUTICASONE/SALMETEROL DISKUS 500-50 MCG/DOSE IH SCH ×2 (10:10→21:43)
[2017-05-27] MEDS ORDERED: ALBUTEROL SULFATE 0.083% NEB 2.5 MG/3 ML AMPUL NEB PRN (10:35)
--- NOTE | 2017-05-27 10:45 | PDOC PROGRESS REPORT ---
Subjective Progress Note for:: 05/27/17 Subjective:: Patient had episode of nausea after morphine administration this morning. Physical Exam Vital Signs: Temp Pulse Resp BP Pulse Ox 98.2 F 73 20 137/72 H 91 L 05/27/17 07:11 05/27/17 07:53 05/27/17 07:53 05/27/17 07:11 05/27/17 07:53 Intake & Output 05/26/17 05/27/17 05/28/17 06:59 06:59 06:59 Intake Total 5992 1600 Output Total 7134 5324 Balance -1200 -3725 Weight 113.3 kg GENERAL: No acute distress HEENT: Conjunctiva clear, nonicteric, moist mucous membranes, no JVD, midline trachea RESPIRATORY: Clear to auscultation bilaterally, no wheezes, no rhonchi CARDIAC: Regular rate and rhythm, no murmurs/gallops/rubs ABDOMEN: Soft, distended, hypoactive bowel sounds, ostomy with a small amount EXTREMETIES: No edema, cyanosis, clubbing NEUROLOGIC: Alert, oriented to person/place/time, CN's grossly intact, no focal deficits SKIN: No rash, wounds PSYCH: Normal mood, normal affect Results Laboratory Results: 05/26/17 06:20 05/26/17 06:20 05/25/17 05/26/17 06:15 13:20 Transferrin 85 L Urine Color STRAW Urine Appearance CLEAR Urine pH 7.0 Ur Specific [place] 1.006 Urine Protein NEGATIVE Urine Glucose (UA) NEGATIVE Urine Ketones 20 H Urine Blood NEGATIVE Urine Nitrite NEGATIVE Ur Leukocyte Esterase NEGATIVE Urine WBC (Auto) 0 Urine RBC (Auto) 1 05/24/17 16:15 Tracheal Aspirate Gram Stain - Final 05/24/17 16:15 Tracheal Aspirate Sputum Culture - Final REDUCED NORMAL [place] 05/23/17 05/23/17 05/23/17 05:55 05:55 08:00 Creatine Kinase 153 157 CK-MB (CK-2) 1.24 Troponin I < 0.012 05/23/17 05/23/17 05/23/17 08:00 13:25 13:25 Creatine Kinase 144 CK-MB (CK-2) 1.34 1.27 Troponin I < 0.012 < 0.012 05/23/17 05/23/17 05/24/17 18:30 18:55 03:49 Creatine Kinase 609 H 601 H CK-MB (CK-2) 3.10 Troponin I < 0.012 Impressions: Abdomen/Pelvis CT 05/22/17 00:00 IMPRESSION: CT FINDINGS COMPATIBLE WITH PERFORATED DIVERTICULITIS WITH 4.6 CM DEVELOPING ABSCESS AND SMALL AMOUNT OF FREE INTRAPERITONEAL AIR DESCRIBED ABOVE. THERE IS MARKED THICKENING OF ADJACENT SMALL BOWEL WITH TETHERING TO THE SIGMOID COLON WITHOUT DEFINITE FISTULA IDENTIFIED AT THIS TIME. INCIDENTAL NOTE MADE OF POSSIBLE 12 MM SOLID MASS VERSUS HYPERDENSE CYST RIGHT KIDNEY. RECOMMEND FOLLOW-UP MRI FOR COMPLETE CHARACTERIZATION. Venous Doppler Study 05/24/17 00:00 IMPRESSION: Extensive deep and superficial venous thrombosis as noted above Chest X-Ray 05/26/17 06:00 IMPRESSION: Interval extubation. Otherwise, no significant interval change including bibasilar opacities. Assessment & Plan - Diagnosis (1) Severe sepsis with septic shock Is this a current diagnosis for this admission?: YesPlan: Continue IV Zosyn day #5. White blood count normal. Patient afebrile. (2) Perforation of sigmoid colon due to diverticulitis Is this a current diagnosis for this admission?: YesPlan: Status post exploratory laparotomy, sigmoid colectomy, colostomy on 06/05/2017. Surgery managing. Patient is currently n.p.o. (3) Acute blood loss as cause of postoperative anemia Is this a current diagnosis for this admission?: Yes (4) Acute deep vein thrombosis (DVT) of upper extremity Qualifiers: Affected thrombotic vein of extremity: unspecified vein of extremity Laterality: left Qualified Code(s): I82.622 - Acute embolism and thrombosis of deep veins of left upper extremity Is this a current diagnosis for this admission?: YesPlan: Continue Lovenox for now. Transition to Xarelto taking the consistent oral intake. (5) Aspiration pneumonia Qualifiers: Aspiration pneumonia type: due to vomit Laterality: bilateral Lung location: lower lobe of lung Qualified Code(s): J69.0 - Pneumonitis due to inhalation of food and vomit Is this a current diagnosis for this admission?: Yes (6) COPD (chronic obstructive pulmonary disease) Qualifiers: COPD type: unspecified COPD Qualified Code(s): J44.9 - Chronic obstructive pulmonary disease, unspecified Is this a current diagnosis for this admission?: Yes (7) Renal mass Is this a current diagnosis for this admission?: YesPlan: Recommend outpatient MRI and urology follow-up. - Time Time Spent with patient: 35 or more minutes
--- NOTE | 2017-05-27 13:37 | PDOC PROGRESS REPORT ---
Subjective Progress Note for:: 05/27/17 Subjective:: Complaining of nausea and vomiting Physical Exam Vital Signs: Temp Pulse Resp BP Pulse Ox 98.1 F 84 18 145/85 H 96 05/27/17 12:07 05/27/17 12:07 05/27/17 12:07 05/27/17 12:07 05/27/17 12:07 Intake & Output 05/26/17 05/27/17 05/28/17 06:59 06:59 06:59 Intake Total 5915 1600 0 Output Total 7115 5325 950 Balance -1200 -3725 -950 Weight 113.3 kg General appearance: PRESENT: disheveled, mild distress, well-developed, well- nourished Head exam: PRESENT: atraumatic, normocephalic Eye exam: PRESENT: conjunctiva pale, EOMI Mouth exam: PRESENT: dry mucosa, neck supple, tongue midline Neck exam: ABSENT: carotid bruit, JVD, lymphadenopathy, thyromegaly Respiratory exam: PRESENT: decreased breath sounds, prolonged expiratory phas, rhonchi, symmetrical, unlabored Cardiovascular exam: PRESENT: RRR, +S1, +S2 Pulses: PRESENT: normal radial pulses GI/Abdominal exam: PRESENT: normal bowel sounds, soft. ABSENT: distended, guarding, mass, organolmegaly, rebound, tenderness Rectal exam: PRESENT: deferred Gentrourinary exam: PRESENT: indwelling catheter Musculoskeletal exam: PRESENT: normal inspection Neurological exam: PRESENT: alert, awake Psychiatric exam: PRESENT: normal mood Skin exam: PRESENT: dry, warm Results Laboratory Results: 05/26/17 06:20 05/26/17 06:20 05/25/17 05/26/17 06:15 13:20 Transferrin 85 L Urine Color STRAW Urine Appearance CLEAR Urine pH 7.0 Ur Specific [place] 1.006 Urine Protein NEGATIVE Urine Glucose (UA) NEGATIVE Urine Ketones 20 H Urine Blood NEGATIVE Urine Nitrite NEGATIVE Ur Leukocyte Esterase NEGATIVE Urine WBC (Auto) 0 Urine RBC (Auto) 1 05/24/17 16:15 Tracheal Aspirate Gram Stain - Final 05/24/17 16:15 Tracheal Aspirate Sputum Culture - Final REDUCED NORMAL [place] 05/23/17 05/23/17 05/23/17 05:55 05:55 08:00 Creatine Kinase 153 157 CK-MB (CK-2) 1.24 Troponin I < 0.012 05/23/17 05/23/17 05/23/17 08:00 13:25 13:25 Creatine Kinase 144 CK-MB (CK-2) 1.34 1.27 Troponin I < 0.012 < 0.012 05/23/17 05/23/17 05/24/17 18:30 18:55 03:49 Creatine Kinase 609 H 601 H CK-MB (CK-2) 3.10 Troponin I < 0.012 Impressions: Abdomen/Pelvis CT 05/22/17 00:00 IMPRESSION: CT FINDINGS COMPATIBLE WITH PERFORATED DIVERTICULITIS WITH 4.6 CM DEVELOPING ABSCESS AND SMALL AMOUNT OF FREE INTRAPERITONEAL AIR DESCRIBED ABOVE. THERE IS MARKED THICKENING OF ADJACENT SMALL BOWEL WITH TETHERING TO THE SIGMOID COLON WITHOUT DEFINITE FISTULA IDENTIFIED AT THIS TIME. INCIDENTAL NOTE MADE OF POSSIBLE 12 MM SOLID MASS VERSUS HYPERDENSE CYST RIGHT KIDNEY. RECOMMEND FOLLOW-UP MRI FOR COMPLETE CHARACTERIZATION. Venous Doppler Study 05/24/17 00:00 IMPRESSION: Extensive deep and superficial venous thrombosis as noted above Chest X-Ray 05/26/17 06:00 IMPRESSION: Interval extubation. Otherwise, no significant interval change including bibasilar opacities. Assessment & Plan - Diagnosis (1) COPD (chronic obstructive pulmonary disease) Qualifiers: COPD type: unspecified COPD Qualified Code(s): J44.9 - Chronic obstructive pulmonary disease, unspecified Is this a current diagnosis for this admission?: YesPlan: At or near baseline (2) Severe sepsis with septic shock Is this a current diagnosis for this admission?: YesPlan: Resolved
--- NOTE | 2017-05-27 13:40 | PDOC PROGRESS REPORT ---
Subjective Progress Note for:: 05/26/17 Subjective:: 24 hours status post extubation doing well Physical Exam Vital Signs: Temp Pulse Resp BP Pulse Ox 98.4 F 80 19 119/86 H 97 05/26/17 07:55 05/26/17 07:55 05/26/17 07:55 05/26/17 07:55 05/26/17 07:55 Intake & Output 05/25/17 05/26/17 05/27/17 06:59 06:59 06:59 Intake Total 6167 5915 Output Total 2175 7115 275 Balance 3992 -1200 -275 Weight 112.1 kg General appearance: PRESENT: no acute distress, cooperative, disheveled, well- developed, well-nourished Head exam: PRESENT: atraumatic, normocephalic Eye exam: PRESENT: conjunctiva pale, EOMI Mouth exam: PRESENT: dry mucosa, neck supple Neck exam: ABSENT: carotid bruit, JVD, lymphadenopathy, thyromegaly Respiratory exam: PRESENT: decreased breath sounds, prolonged expiratory phas, rhonchi, symmetrical Cardiovascular exam: PRESENT: RRR, +S1, +S2 Pulses: PRESENT: normal radial pulses GI/Abdominal exam: PRESENT: normal bowel sounds, soft, other. ABSENT: distended , guarding, mass, organolmegaly, rebound, tenderness Gentrourinary exam: PRESENT: indwelling catheter Musculoskeletal exam: PRESENT: normal inspection Neurological exam: PRESENT: alert, awake Psychiatric exam: PRESENT: normal mood Skin exam: PRESENT: dry, warm Results Laboratory Results: 05/26/17 06:20 05/26/17 06:20 05/26/17 05/26/17 05/26/17 06:20 06:20 06:20 WBC 9.6 RBC 3.37 L Hgb 10.7 L Hct 31.8 L MCV 95 MCH 31.8 MCHC 33.6 RDW 13.1 Plt Count 257 Sodium 144.9 Potassium 3.5 L Chloride 112 H Carbon Dioxide 25 Anion Gap 8 BUN 8 Creatinine 0.63 Est GFR ( Amer) > 60 Est GFR (Non-Af Amer) > 60 Glucose 87 Calcium 8.0 L Magnesium 2.0 Urine Color YELLOW Urine Appearance CLEAR Urine pH 7.0 Ur Specific [place] 1.013 Urine Protein NEGATIVE Urine Glucose (UA) NEGATIVE Urine Ketones 20 H Urine Blood SMALL H Urine Nitrite NEGATIVE Ur Leukocyte Esterase NEGATIVE Urine WBC (Auto) 0 Urine RBC (Auto) 14 Stool Occult Blood 05/26/17 06:20 WBC RBC Hgb Hct MCV MCH MCHC RDW Plt Count Sodium Potassium Chloride Carbon Dioxide Anion Gap BUN Creatinine Est GFR ( Amer) Est GFR (Non-Af Amer) Glucose Calcium Magnesium Urine Color Urine Appearance Urine pH Ur Specific [place] Urine Protein Urine Glucose (UA) Urine Ketones Urine Blood Urine Nitrite Ur Leukocyte Esterase Urine WBC (Auto) Urine RBC (Auto) Stool Occult Blood POSITIVE 05/23/17 05/23/17 05/23/17 05:55 05:55 08:00 Creatine Kinase 153 157 CK-MB (CK-2) 1.24 Troponin I < 0.012 05/23/17 05/23/17 05/23/17 08:00 13:25 13:25 Creatine Kinase 144 CK-MB (CK-2) 1.34 1.27 Troponin I < 0.012 < 0.012 05/23/17 05/23/17 05/24/17 18:30 18:55 03:49 Creatine Kinase 609 H 601 H CK-MB (CK-2) 3.10 Troponin I < 0.012 Impressions: Abdomen/Pelvis CT 05/22/17 00:00 IMPRESSION: CT FINDINGS COMPATIBLE WITH PERFORATED DIVERTICULITIS WITH 4.6 CM DEVELOPING ABSCESS AND SMALL AMOUNT OF FREE INTRAPERITONEAL AIR DESCRIBED ABOVE. THERE IS MARKED THICKENING OF ADJACENT SMALL BOWEL WITH TETHERING TO THE SIGMOID COLON WITHOUT DEFINITE FISTULA IDENTIFIED AT THIS TIME. INCIDENTAL NOTE MADE OF POSSIBLE 12 MM SOLID MASS VERSUS HYPERDENSE CYST RIGHT KIDNEY. RECOMMEND FOLLOW-UP MRI FOR COMPLETE CHARACTERIZATION. Venous Doppler Study 05/24/17 00:00 IMPRESSION: Extensive deep and superficial venous thrombosis as noted above Chest X-Ray 05/26/17 06:00 IMPRESSION: Interval extubation. Otherwise, no significant interval change including bibasilar opacities. Assessment & Plan - Diagnosis (1) COPD (chronic obstructive pulmonary disease) Qualifiers: COPD type: unspecified COPD Qualified Code(s): J44.9 - Chronic obstructive pulmonary disease, unspecified Is this a current diagnosis for this admission?: YesPlan: Stable at this time (2) Severe sepsis with septic shock Is this a current diagnosis for this admission?: YesPlan: No longer requiring vasopressor agent - Time Critical Time spent with patient: 25-34 minutes
--- NOTE | 2017-05-27 13:45 | PDOC PROGRESS REPORT ---
Subjective Progress Note for:: 05/25/17 Subjective:: Intubated and sedated Physical Exam Vital Signs: Temp Pulse Resp BP Pulse Ox 98.4 F 86 14 99/61 L 99 05/25/17 10:00 05/25/17 10:00 05/25/17 10:30 05/25/17 10:02 05/25/17 10:30 Intake & Output 05/24/17 05/25/17 05/26/17 06:59 06:59 06:59 Intake Total 6637 6167 Output Total 4210 2175 230 Balance 2427 3992 -230 Weight 113.4 kg 112.1 kg General appearance: PRESENT: no acute distress, disheveled, well-developed, well -nourished Head exam: PRESENT: atraumatic, normocephalic Eye exam: PRESENT: conjunctiva pale Mouth exam: PRESENT: dry mucosa, neck supple, tongue midline, other - ET tube in place Neck exam: ABSENT: carotid bruit, JVD, lymphadenopathy, thyromegaly Respiratory exam: PRESENT: decreased breath sounds, prolonged expiratory phas, rhonchi, unlabored Cardiovascular exam: PRESENT: RRR, +S1, +S2 Pulses: PRESENT: normal radial pulses GI/Abdominal exam: PRESENT: normal bowel sounds, soft. ABSENT: distended, guarding, mass, organolmegaly, rebound, tenderness Rectal exam: PRESENT: deferred Gentrourinary exam: PRESENT: indwelling catheter Musculoskeletal exam: PRESENT: normal inspection Skin exam: PRESENT: dry, warm Results Laboratory Results: 05/25/17 06:15 05/25/17 06:15 05/24/17 05/24/17 05/24/17 10:50 13:15 13:15 WBC RBC Hgb Hct MCV MCH MCHC RDW Plt Count Seg Neutrophils % Lymphocytes % Monocytes % Eosinophils % Basophils % Absolute Neutrophils Absolute Lymphocytes Absolute Monocytes Absolute Eosinophils Absolute Basophils Retic Count (auto) Absolute Retic Carbonic Acid HCO3/H2CO3 Ratio ABG pH ABG pCO2 ABG pO2 ABG HCO3 ABG O2 Saturation ABG Base Excess FiO2 Sodium Potassium Chloride Carbon Dioxide Anion Gap BUN Creatinine Est GFR ( Amer) Est GFR (Non-Af Amer) Glucose Calcium Phosphorus Magnesium Iron TIBC % Saturation Ferritin Vitamin B12 Folate Urine Color YELLOW Urine Appearance CLEAR Urine pH 6.0 Ur Specific [place] 1.005 Urine Protein NEGATIVE Urine Glucose (UA) NEGATIVE Urine Ketones NEGATIVE Urine Blood SMALL H Urine Nitrite NEGATIVE Ur Leukocyte Esterase NEGATIVE Urine WBC (Auto) 0 Urine RBC (Auto) 1 Stool Occult Blood POSITIVE Blood Type A POSITIVE Antibody Screen NEGATIVE 05/24/17 05/25/17 05/25/17 21:45 06:15 06:15 WBC 8.0 RBC 3.15 L Hgb 9.8 L D Hct 30.0 L MCV 95 MCH 31.1 MCHC 32.6 RDW 13.3 Plt Count 223 Seg Neutrophils % 63.7 Lymphocytes % 20.6 Monocytes % 8.9 Eosinophils % 6.2 H Basophils % 0.6 Absolute Neutrophils 5.1 Absolute Lymphocytes 1.6 Absolute Monocytes 0.7 Absolute Eosinophils 0.5 Absolute Basophils 0.0 Retic Count (auto) 1.42 Absolute Retic 0.045 Carbonic Acid HCO3/H2CO3 Ratio ABG pH ABG pCO2 ABG pO2 ABG HCO3 ABG O2 Saturation ABG Base Excess FiO2 Sodium 143.7 Potassium 3.8 Chloride 114 H Carbon Dioxide 24 Anion Gap 6 BUN 7 Creatinine 0.74 Est GFR ( Amer) > 60 Est GFR (Non-Af Amer) > 60 Glucose 85 Calcium 7.6 L Phosphorus 2.7 Magnesium 2.1 Iron 19.0 L TIBC 159 L % Saturation 12 Ferritin 190.00 Vitamin B12 405.0 Folate 8.53 Urine Color Urine Appearance Urine pH Ur Specific [place] Urine Protein Urine Glucose (UA) Urine Ketones Urine Blood Urine Nitrite Ur Leukocyte Esterase Urine WBC (Auto) Urine RBC (Auto) Stool Occult Blood Blood Type Antibody Screen 05/25/17 05/25/17 06:15 06:15 WBC RBC Hgb Hct MCV MCH MCHC RDW Plt Count Seg Neutrophils % Lymphocytes % Monocytes % Eosinophils % Basophils % Absolute Neutrophils Absolute Lymphocytes Absolute Monocytes Absolute Eosinophils Absolute Basophils Retic Count (auto) Absolute Retic Carbonic Acid 1.35 HCO3/H2CO3 Ratio 19:1 ABG pH 7.38 ABG pCO2 44.9 ABG pO2 94.9 ABG HCO3 25.7 ABG O2 Saturation 97.1 ABG Base Excess 0.3 FiO2 50% Sodium Potassium Chloride Carbon Dioxide Anion Gap BUN Creatinine Est GFR ( Amer) Est GFR (Non-Af Amer) Glucose Calcium Phosphorus 3.1 Magnesium Iron TIBC % Saturation Ferritin Vitamin B12 Folate Urine Color Urine Appearance Urine pH Ur Specific [place] Urine Protein Urine Glucose (UA) Urine Ketones Urine Blood Urine Nitrite Ur Leukocyte Esterase Urine WBC (Auto) Urine RBC (Auto) Stool Occult Blood Blood Type Antibody Screen 05/23/17 05/23/17 05/23/17 05:55 05:55 08:00 Creatine Kinase 153 157 CK-MB (CK-2) 1.24 Troponin I < 0.012 05/23/17 05/23/17 05/23/17 08:00 13:25 13:25 Creatine Kinase 144 CK-MB (CK-2) 1.34 1.27 Troponin I < 0.012 < 0.012 05/23/17 05/23/17 05/24/17 18:30 18:55 03:49 Creatine Kinase 609 H 601 H CK-MB (CK-2) 3.10 Troponin I < 0.012 Impressions: Abdomen/Pelvis CT 05/22/17 00:00 IMPRESSION: CT FINDINGS COMPATIBLE WITH PERFORATED DIVERTICULITIS WITH 4.6 CM DEVELOPING ABSCESS AND SMALL AMOUNT OF FREE INTRAPERITONEAL AIR DESCRIBED ABOVE. THERE IS MARKED THICKENING OF ADJACENT SMALL BOWEL WITH TETHERING TO THE SIGMOID COLON WITHOUT DEFINITE FISTULA IDENTIFIED AT THIS TIME. INCIDENTAL NOTE MADE OF POSSIBLE 12 MM SOLID MASS VERSUS HYPERDENSE CYST RIGHT KIDNEY. RECOMMEND FOLLOW-UP MRI FOR COMPLETE CHARACTERIZATION. Venous Doppler Study 05/24/17 00:00 IMPRESSION: Extensive deep and superficial venous thrombosis as noted above Chest X-Ray 05/25/17 06:00 IMPRESSION: Improved aeration of right upper lobe. Small to moderate streakiness -opacity of bilateral lung bases, left more than right. Assessment & Plan - Diagnosis (1) COPD (chronic obstructive pulmonary disease) Qualifiers: COPD type: unspecified COPD Qualified Code(s): J44.9 - Chronic obstructive pulmonary disease, unspecified Is this a current diagnosis for this admission?: YesPlan: Respiratory rate, minute ventilation, FiO2, airway pressures all suggest successful extubation will proceed with extubation (2) Severe sepsis with septic shock Is this a current diagnosis for this admission?: YesPlan: Stable hemodynamics - Time Critical Time spent with patient: 35 or more minutes - 55 minutes extubation
[2017-05-27] MEDS: POTASSI CL 20 MEQ/D5-1/2NS 1L 1,000 ML IV PRN (14:52)
--- NOTE | 2017-05-27 15:49 | PDOC PROGRESS REPORT ---
Subjective Progress Note for:: 05/27/17 - Postop day #5 status post exploratory lap with colectomy and end colostomy Subjective:: Patient is without complaints, and wants food Physical Exam Vital Signs: Temp Pulse Resp BP Pulse Ox 98.1 F 84 18 145/85 H 96 05/27/17 12:07 05/27/17 12:07 05/27/17 12:07 05/27/17 12:07 05/27/17 12:07 Intake & Output 05/26/17 05/27/17 05/28/17 06:59 06:59 06:59 Intake Total 5915 1600 0 Output Total 7115 5325 950 Balance -1200 -3725 -950 Weight 113.3 kg General appearance: PRESENT: no acute distress Head exam: PRESENT: normocephalic Mouth exam: PRESENT: moist Respiratory exam: PRESENT: clear to auscultation rory Cardiovascular exam: PRESENT: RRR GI/Abdominal exam: PRESENT: normal bowel sounds - Bowel sounds, soft. ABSENT: guarding, tenderness Results Laboratory Results: 05/26/17 06:20 05/26/17 06:20 05/23/17 05/23/17 05/23/17 05:55 05:55 08:00 Creatine Kinase 153 157 CK-MB (CK-2) 1.24 Troponin I < 0.012 05/23/17 05/23/17 05/23/17 08:00 13:25 13:25 Creatine Kinase 144 CK-MB (CK-2) 1.34 1.27 Troponin I < 0.012 < 0.012 05/23/17 05/23/17 05/24/17 18:30 18:55 03:49 Creatine Kinase 609 H 601 H CK-MB (CK-2) 3.10 Troponin I < 0.012 Impressions: Abdomen/Pelvis CT 05/22/17 00:00 IMPRESSION: CT FINDINGS COMPATIBLE WITH PERFORATED DIVERTICULITIS WITH 4.6 CM DEVELOPING ABSCESS AND SMALL AMOUNT OF FREE INTRAPERITONEAL AIR DESCRIBED ABOVE. THERE IS MARKED THICKENING OF ADJACENT SMALL BOWEL WITH TETHERING TO THE SIGMOID COLON WITHOUT DEFINITE FISTULA IDENTIFIED AT THIS TIME. INCIDENTAL NOTE MADE OF POSSIBLE 12 MM SOLID MASS VERSUS HYPERDENSE CYST RIGHT KIDNEY. RECOMMEND FOLLOW-UP MRI FOR COMPLETE CHARACTERIZATION. Venous Doppler Study 05/24/17 00:00 IMPRESSION: Extensive deep and superficial venous thrombosis as noted above Chest X-Ray 05/26/17 06:00 IMPRESSION: Interval extubation. Otherwise, no significant interval change including bibasilar opacities. Assessment & Plan - Plan Summary Plan Summary: We will start patient on clear liquid diet, and advance accordingly.
[2017-05-28] MEDS: PROMETHAZINE HCL INJ 25 MG/1 ML VIAL IV PRN ×3 (03:45→23:40)
[2017-05-28] MEDS: MORPHINE SULFATE 10 MG/ML INJ IV PRN ×4 (03:46→23:40)
[2017-05-28] MEDS: PIPERACILLIN SODIUM/TAZOBACTAM 4.5 GM in NORMAL SALINE 100 ML IV SCH ×2 (03:46→08:24)
[2017-05-28] MEDS: POTASSI CL 20 MEQ/D5-1/2NS 1L 1,000 ML IV PRN (03:53)
[2017-05-28 05:52] LABS: HEMATOCRIT 35.4 % (37.9-51.0); HEMOGLOBIN 11.6 g/dL (13.5-17.0); HGB HCT DIFFERENCE -0.6; MEAN CORPUSCULAR HEMOGLOBIN 30.8 pg (27.0-33.4); MEAN CORPUSCULAR HGB CONC 32.8 g/dL (32.0-36.0); MEAN CORPUSCULAR VOLUME 94 fl (80-97); RED BLOOD COUNT 3.77 10^6/uL (4.35-5.55); RED CELL DISTRIBUTION WIDTH 13.3 % (11.5-14.0); WHITE BLOOD COUNT 11.4 10^3/uL (4.0-10.5)
[2017-05-28 06:15] LABS: ANION GAP 9 (5-19); BLOOD UREA NITROGEN 12 mg/dL (7-20); CALCIUM 8.5 mg/dL (8.4-10.2); CARBON DIOXIDE 25 mmol/L (22-30); CHLORIDE 109 mmol/L (98-107); CREATININE RESULT 0.69 mg/dL (0.52-1.25); GLUCOSE 116 mg/dL (75-110); POTASSIUM 3.5 mmol/L (3.6-5.0)
[2017-05-28] MEDS ORDERED: POTASSIUM CHLORIDE 10 MEQ TABLET.SA PO ONE (08:00)
--- NOTE | 2017-05-28 10:10 | PDOC PROGRESS REPORT ---
Subjective Progress Note for:: 05/28/17 Subjective:: Patient is tolerating clear liquid diet. No nausea or vomiting. No abdominal pain. No fevers or chills. Physical Exam Vital Signs: Temp Pulse Resp BP Pulse Ox 98.8 F 74 16 131/82 H 96 05/28/17 07:25 05/28/17 07:25 05/28/17 07:25 05/28/17 07:25 05/28/17 07:25 Intake & Output 05/27/17 05/28/17 05/29/17 06:59 06:59 06:59 Intake Total 1600 3599 Output Total 5325 4800 Balance -3235 -1201 Weight 113.3 kg 113.8 kg GENERAL: No acute distress HEENT: Conjunctiva clear, nonicteric, moist mucous membranes, no JVD, midline trachea RESPIRATORY: Clear to auscultation bilaterally, no wheezes, no rhonchi CARDIAC: Regular rate and rhythm, no murmurs/gallops/rubs ABDOMEN: Soft, distended, hypoactive bowel sounds, ostomy with a small amount EXTREMETIES: No edema, cyanosis, clubbing NEUROLOGIC: Alert, oriented to person/place/time, CN's grossly intact, no focal deficits SKIN: No rash, wounds PSYCH: Normal mood, normal affect Results Laboratory Results: 05/28/17 05:45 05/28/17 05:45 05/28/17 05/28/17 05:45 05:45 WBC 11.4 H RBC 3.77 L Hgb 11.6 L Hct 35.4 L MCV 94 MCH 30.8 MCHC 32.8 RDW 13.3 Plt Count 288 Sodium 143.0 Potassium 3.5 L Chloride 109 H Carbon Dioxide 25 Anion Gap 9 BUN 12 Creatinine 0.69 Est GFR ( Amer) > 60 Est GFR (Non-Af Amer) > 60 Glucose 116 H Calcium 8.5 05/23/17 02:29 Blood Blood Culture - Final NO GROWTH IN 5 DAYS 05/23/17 01:30 Blood Blood Culture - Final NO GROWTH IN 5 DAYS 05/23/17 05/23/17 05/23/17 05:55 05:55 08:00 Creatine Kinase 153 157 CK-MB (CK-2) 1.24 Troponin I < 0.012 05/23/17 05/23/17 05/23/17 08:00 13:25 13:25 Creatine Kinase 144 CK-MB (CK-2) 1.34 1.27 Troponin I < 0.012 < 0.012 05/23/17 05/23/17 05/24/17 18:30 18:55 03:49 Creatine Kinase 609 H 601 H CK-MB (CK-2) 3.10 Troponin I < 0.012 Impressions: Abdomen/Pelvis CT 05/22/17 00:00 IMPRESSION: CT FINDINGS COMPATIBLE WITH PERFORATED DIVERTICULITIS WITH 4.6 CM DEVELOPING ABSCESS AND SMALL AMOUNT OF FREE INTRAPERITONEAL AIR DESCRIBED ABOVE. THERE IS MARKED THICKENING OF ADJACENT SMALL BOWEL WITH TETHERING TO THE SIGMOID COLON WITHOUT DEFINITE FISTULA IDENTIFIED AT THIS TIME. INCIDENTAL NOTE MADE OF POSSIBLE 12 MM SOLID MASS VERSUS HYPERDENSE CYST RIGHT KIDNEY. RECOMMEND FOLLOW-UP MRI FOR COMPLETE CHARACTERIZATION. Venous Doppler Study 05/24/17 00:00 IMPRESSION: Extensive deep and superficial venous thrombosis as noted above Chest X-Ray 05/26/17 06:00 IMPRESSION: Interval extubation. Otherwise, no significant interval change including bibasilar opacities. Assessment & Plan - Diagnosis (1) Severe sepsis with septic shock Is this a current diagnosis for this admission?: YesPlan: Discontinue IV Zosyn. Start oral Levaquin and Flagyl. White blood count normal. Patient afebrile. (2) Perforation of sigmoid colon due to diverticulitis Is this a current diagnosis for this admission?: YesPlan: Status post exploratory laparotomy, sigmoid colectomy, colostomy on 06/05/2017. Surgery managing. Patient is currently tolerating clear liquid diet. (3) Acute blood loss as cause of postoperative anemia Is this a current diagnosis for this admission?: Yes (4) Acute deep vein thrombosis (DVT) of upper extremity Qualifiers: Affected thrombotic vein of extremity: unspecified vein of extremity Laterality: left Qualified Code(s): I82.622 - Acute embolism and thrombosis of deep veins of left upper extremity Is this a current diagnosis for this admission?: YesPlan: Discontinue Lovenox. Start Xarelto 15 mg twice daily. (5) Aspiration pneumonia Qualifiers: Aspiration pneumonia type: due to vomit Laterality: bilateral Lung location: lower lobe of lung Qualified Code(s): J69.0 - Pneumonitis due to inhalation of food and vomit Is this a current diagnosis for this admission?: YesPlan: Discontinue Zosyn. Oral Levaquin and Flagyl. (6) COPD (chronic obstructive pulmonary disease) Qualifiers: COPD type: unspecified COPD Qualified Code(s): J44.9 - Chronic obstructive pulmonary disease, unspecified Is this a current diagnosis for this admission?: Yes (7) Renal mass Is this a current diagnosis for this admission?: YesPlan: Recommend outpatient MRI and urology follow-up. (8) Hypokalemia Is this a current diagnosis for this admission?: YesPlan: Replaced. - Time Time Spent with patient: 35 or more minutes Anticipated discharge: Home Within: within 72 hours
[2017-05-28] MEDS: LEVOTHYROXINE SODIUM 0.05 MG TABLET PO SCH (10:13)
[2017-05-28] MEDS: FLUTICASONE/SALMETEROL DISKUS 500-50 MCG/DOSE IH SCH ×2 (10:13→22:34)
[2017-05-28] MEDS ORDERED: CARVEDILOL 6.25 MG TABLET PO ONE (11:00)
[2017-05-28] MEDS: LEVOFLOXACIN 750 MG TABLET PO SCH (11:02)
[2017-05-28] MEDS: LISINOPRIL 10 MG TABLET PO SCH (12:00)
[2017-05-28] MEDS: METRONIDAZOLE 500 MG TABLET PO SCH ×2 (14:06→22:33)
[2017-05-28] MEDS: RIVAROXABAN 15 MG TABLET PO SCH (16:50)
--- NOTE | 2017-05-28 18:48 | PDOC PROGRESS REPORT ---
Subjective Progress Note for:: 05/28/17 Subjective:: Awake alert without complaints Physical Exam Vital Signs: Temp Pulse Resp BP Pulse Ox 99.6 F 75 18 137/79 H 95 05/28/17 16:14 05/28/17 16:58 05/28/17 16:58 05/28/17 16:14 05/28/17 16:58 Intake & Output 05/27/17 05/28/17 05/29/17 06:59 06:59 06:59 Intake Total 1600 3599 1600 Output Total 5326 1290 2100 Balance -8365 1201 -500 Weight 113.3 kg 113.8 kg General appearance: PRESENT: no acute distress, cooperative, disheveled, well- developed, well-nourished Head exam: PRESENT: atraumatic, normocephalic Eye exam: PRESENT: conjunctiva pale, EOMI Mouth exam: PRESENT: moist, neck supple, tongue midline Neck exam: ABSENT: carotid bruit, JVD, lymphadenopathy, thyromegaly Respiratory exam: PRESENT: decreased breath sounds, prolonged expiratory phas, rhonchi, unlabored Cardiovascular exam: PRESENT: RRR, +S1, +S2 Pulses: PRESENT: normal radial pulses GI/Abdominal exam: PRESENT: normal bowel sounds, soft. ABSENT: distended, guarding, mass, organolmegaly, rebound, tenderness Rectal exam: PRESENT: deferred Musculoskeletal exam: PRESENT: normal inspection Neurological exam: PRESENT: alert, awake Psychiatric exam: PRESENT: normal mood Skin exam: PRESENT: dry, warm Results Laboratory Results: 05/28/17 05:45 05/28/17 05:45 05/28/17 05/28/17 05/28/17 05:45 05:45 09:30 WBC 11.4 H RBC 3.77 L Hgb 11.6 L Hct 35.4 L MCV 94 MCH 30.8 MCHC 32.8 RDW 13.3 Plt Count 288 Sodium 143.0 Potassium 3.5 L Chloride 109 H Carbon Dioxide 25 Anion Gap 9 BUN 12 Creatinine 0.69 Est GFR ( Amer) > 60 Est GFR (Non-Af Amer) > 60 Glucose 116 H Calcium 8.5 Stool Occult Blood NEGATIVE 05/23/17 02:29 Blood Blood Culture - Final NO GROWTH IN 5 DAYS 05/23/17 01:30 Blood Blood Culture - Final NO GROWTH IN 5 DAYS 05/23/17 05/23/17 05/23/17 05:55 05:55 08:00 Creatine Kinase 153 157 CK-MB (CK-2) 1.24 Troponin I < 0.012 05/23/17 05/23/17 05/23/17 08:00 13:25 13:25 Creatine Kinase 144 CK-MB (CK-2) 1.34 1.27 Troponin I < 0.012 < 0.012 05/23/17 05/23/17 05/24/17 18:30 18:55 03:49 Creatine Kinase 609 H 601 H CK-MB (CK-2) 3.10 Troponin I < 0.012 Impressions: Abdomen/Pelvis CT 05/22/17 00:00 IMPRESSION: CT FINDINGS COMPATIBLE WITH PERFORATED DIVERTICULITIS WITH 4.6 CM DEVELOPING ABSCESS AND SMALL AMOUNT OF FREE INTRAPERITONEAL AIR DESCRIBED ABOVE. THERE IS MARKED THICKENING OF ADJACENT SMALL BOWEL WITH TETHERING TO THE SIGMOID COLON WITHOUT DEFINITE FISTULA IDENTIFIED AT THIS TIME. INCIDENTAL NOTE MADE OF POSSIBLE 12 MM SOLID MASS VERSUS HYPERDENSE CYST RIGHT KIDNEY. RECOMMEND FOLLOW-UP MRI FOR COMPLETE CHARACTERIZATION. Venous Doppler Study 05/24/17 00:00 IMPRESSION: Extensive deep and superficial venous thrombosis as noted above Chest X-Ray 05/26/17 06:00 IMPRESSION: Interval extubation. Otherwise, no significant interval change including bibasilar opacities. Assessment & Plan - Diagnosis (1) COPD (chronic obstructive pulmonary disease) Qualifiers: COPD type: unspecified COPD Qualified Code(s): J44.9 - Chronic obstructive pulmonary disease, unspecified Is this a current diagnosis for this admission?: Yes (2) Severe sepsis with septic shock Is this a current diagnosis for this admission?: No
[2017-05-28] MEDS ORDERED: CIPROFLOXACIN HCL 500 MG TABLET PO SCH (22:00)
[2017-05-28] MEDS: CARVEDILOL 6.25 MG TABLET PO SCH (22:34)
[2017-05-29] MEDS: PROMETHAZINE HCL INJ 25 MG/1 ML VIAL IV PRN ×2 (03:35→10:46)
[2017-05-29] MEDS: MORPHINE SULFATE 10 MG/ML INJ IV PRN ×2 (03:36→10:46)
[2017-05-29] MEDS: METRONIDAZOLE 500 MG TABLET PO SCH ×2 (05:13→13:41)
[2017-05-29 06:03] LABS: ABSOLUTE BASOPHILS # (AUTO) 0.1 10^3/uL (0.0-0.2); ABSOLUTE EOSINOPHILS # (AUTO) 0.3 10^3/uL (0.0-0.6); ABSOLUTE LYMPHOCYTES (AUTO) 1.4 10^3/uL (0.5-4.7); ABSOLUTE MONOCYTES (AUTO) 1.3 10^3/uL (0.1-1.4); ABSOLUTE NEUT (AUTO) 8.4 10^3/uL (1.7-8.2); BASOPHILS % (AUTO) 0.8 % (0-2); EOSINOPHILS % (AUTO) 2.9 % (0-6); HEMATOCRIT 35.6 % (37.9-51.0); HEMOGLOBIN 11.8 g/dL (13.5-17.0); HGB HCT DIFFERENCE -0.2; LYMPHOCYTES % (AUTO) 12.1 % (13-45); MEAN CORPUSCULAR HEMOGLOBIN 30.8 pg (27.0-33.4); MEAN CORPUSCULAR HGB CONC 33.2 g/dL (32.0-36.0); MEAN CORPUSCULAR VOLUME 93 fl (80-97); MONOCYTES % (AUTO) 11.2 % (3-13); RED BLOOD COUNT 3.84 10^6/uL (4.35-5.55); RED CELL DISTRIBUTION WIDTH 12.8 % (11.5-14.0); WHITE BLOOD COUNT 11.6 10^3/uL (4.0-10.5)
[2017-05-29 06:26] LABS: ALANINE AMINOTRANSFERASE 106 U/L (21-72); ALBUMIN 2.7 g/dL (3.5-5.0); ALKALINE PHOSPHATASE 76 U/L (38-126); ANION GAP 11 (5-19); ASPARTATE AMINO TRANSFERASE 63 U/L (17-59); BILIRUBIN,DIRECT 0.5 mg/dL (0.0-0.4); BILIRUBIN,TOTAL 0.7 mg/dL (0.2-1.3); BLOOD UREA NITROGEN 13 mg/dL (7-20); CALCIUM 8.7 mg/dL (8.4-10.2); CARBON DIOXIDE 23 mmol/L (22-30); CHLORIDE 109 mmol/L (98-107); CREATININE RESULT 0.59 mg/dL (0.52-1.25); GLUCOSE 92 mg/dL (75-110); MAGNESIUM 2.1 mg/dL (1.6-2.3); POTASSIUM 3.8 mmol/L (3.6-5.0); TOTAL PROTEIN 5.8 g/dL (6.3-8.2)
[2017-05-29] MEDS: RIVAROXABAN 15 MG TABLET PO SCH ×2 (08:21→16:45)
--- NOTE | 2017-05-29 09:41 | PDOC PROGRESS REPORT ---
Subjective Progress Note for:: 05/29/17 Subjective:: Patient has been tolerating clear liquids and has been advanced to regular consistency diet by surgery today. He has been ambulating without difficulty. He has been educated in ostomy care and is comfortable doing this. He denies fever, chills, chest pain, shortness of breath, nausea, vomiting. Physical Exam Vital Signs: Temp Pulse Resp BP Pulse Ox 97.3 F 73 19 132/76 H 95 05/29/17 07:40 05/29/17 07:40 05/29/17 07:40 05/29/17 07:40 05/29/17 07:40 Intake & Output 05/28/17 05/29/17 05/30/17 06:59 06:59 06:59 Intake Total 3599 2522 Output Total 4800 3500 Balance -1201 -978 Weight 113.8 kg 106.4 kg GENERAL: No acute distress HEENT: Conjunctiva clear, nonicteric, moist mucous membranes, no JVD, midline trachea. Right IJ line noted. RESPIRATORY: Clear to auscultation bilaterally, no wheezes, no rhonchi CARDIAC: Regular rate and rhythm, no murmurs/gallops/rubs ABDOMEN: Soft, positive bowel sounds, ostomy noted with stool output EXTREMETIES: No edema, cyanosis, clubbing NEUROLOGIC: Alert, oriented to person/place/time, CN's grossly intact, no focal deficits SKIN: No rash, wounds PSYCH: Normal mood, normal affect Results Laboratory Results: 05/29/17 05:15 05/29/17 05:15 05/28/17 05/29/17 05/29/17 09:30 05:15 05:15 WBC 11.6 H RBC 3.84 L Hgb 11.8 L Hct 35.6 L MCV 93 MCH 30.8 MCHC 33.2 RDW 12.8 Plt Count 277 Seg Neutrophils % 73.0 Lymphocytes % 12.1 L Monocytes % 11.2 Eosinophils % 2.9 Basophils % 0.8 Absolute Neutrophils 8.4 H Absolute Lymphocytes 1.4 Absolute Monocytes 1.3 Absolute Eosinophils 0.3 Absolute Basophils 0.1 Sodium 143.0 Potassium 3.8 Chloride 109 H Carbon Dioxide 23 Anion Gap 11 BUN 13 Creatinine 0.59 Est GFR ( Amer) > 60 Est GFR (Non-Af Amer) > 60 Glucose 92 Calcium 8.7 Magnesium 2.1 Total Bilirubin 0.7 AST 63 H ALT 106 H Alkaline Phosphatase 76 Total Protein 5.8 L Albumin 2.7 L Stool Occult Blood NEGATIVE 05/23/17 05/23/17 05/23/17 05:55 05:55 08:00 Creatine Kinase 153 157 CK-MB (CK-2) 1.24 Troponin I < 0.012 05/23/17 05/23/17 05/23/17 08:00 13:25 13:25 Creatine Kinase 144 CK-MB (CK-2) 1.34 1.27 Troponin I < 0.012 < 0.012 05/23/17 05/23/17 05/24/17 18:30 18:55 03:49 Creatine Kinase 609 H 601 H CK-MB (CK-2) 3.10 Troponin I < 0.012 Impressions: Abdomen/Pelvis CT 05/22/17 00:00 IMPRESSION: CT FINDINGS COMPATIBLE WITH PERFORATED DIVERTICULITIS WITH 4.6 CM DEVELOPING ABSCESS AND SMALL AMOUNT OF FREE INTRAPERITONEAL AIR DESCRIBED ABOVE. THERE IS MARKED THICKENING OF ADJACENT SMALL BOWEL WITH TETHERING TO THE SIGMOID COLON WITHOUT DEFINITE FISTULA IDENTIFIED AT THIS TIME. INCIDENTAL NOTE MADE OF POSSIBLE 12 MM SOLID MASS VERSUS HYPERDENSE CYST RIGHT KIDNEY. RECOMMEND FOLLOW-UP MRI FOR COMPLETE CHARACTERIZATION. Venous Doppler Study 05/24/17 00:00 IMPRESSION: Extensive deep and superficial venous thrombosis as noted above Chest X-Ray 05/26/17 06:00 IMPRESSION: Interval extubation. Otherwise, no significant interval change including bibasilar opacities. Assessment & Plan - Diagnosis (1) Severe sepsis with septic shock Is this a current diagnosis for this admission?: YesPlan: Completing course of oral Levaquin and Flagyl. White blood count normal. Patient afebrile. (2) Perforation of sigmoid colon due to diverticulitis Is this a current diagnosis for this admission?: YesPlan: Status post exploratory laparotomy, sigmoid colectomy, colostomy on 06/05/2017. Surgery managing. (3) Acute blood loss as cause of postoperative anemia Is this a current diagnosis for this admission?: Yes (4) Acute deep vein thrombosis (DVT) of upper extremity Qualifiers: Affected thrombotic vein of extremity: unspecified vein of extremity Laterality: left Qualified Code(s): I82.622 - Acute embolism and thrombosis of deep veins of left upper extremity Is this a current diagnosis for this admission?: YesPlan: Xarelto 15 mg twice daily x 21 days, then 20mg daily x 3 months. (5) Aspiration pneumonia Qualifiers: Aspiration pneumonia type: due to vomit Laterality: bilateral Lung location: lower lobe of lung Qualified Code(s): J69.0 - Pneumonitis due to inhalation of food and vomit Is this a current diagnosis for this admission?: Yes (6) COPD (chronic obstructive pulmonary disease) Qualifiers: COPD type: unspecified COPD Qualified Code(s): J44.9 - Chronic obstructive pulmonary disease, unspecified Is this a current diagnosis for this admission?: Yes (7) Renal mass Is this a current diagnosis for this admission?: YesPlan: Recommend outpatient MRI and urology follow-up. (8) Hypokalemia Is this a current diagnosis for this admission?: Yes (9) HTN (hypertension) Qualifiers: Hypertension type: essential hypertension Qualified Code(s): I10 - Essential (primary) hypertension Is this a current diagnosis for this admission?: Yes - Time Time Spent with patient: 25-34 minutes
[2017-05-29] MEDS ORDERED: AMLODIPINE BESYLATE 5 MG TABLET PO SCH (10:00)
[2017-05-29] MEDS: FLUTICASONE/SALMETEROL DISKUS 500-50 MCG/DOSE IH SCH (10:07)
[2017-05-29] MEDS: CARVEDILOL 6.25 MG TABLET PO SCH (10:08)
[2017-05-29] MEDS: LEVOTHYROXINE SODIUM 0.05 MG TABLET PO SCH (10:08)
[2017-05-29] MEDS: LEVOFLOXACIN 750 MG TABLET PO SCH (10:08)
[2017-05-29 12:18] VITALS: BP 139/75
[2017-05-29] MEDS: LISINOPRIL 10 MG TABLET PO SCH (12:26)
--- NOTE | 2017-05-29 15:00 | PDOC PROGRESS REPORT ---
Subjective Progress Note for:: 05/29/17 Subjective:: Feels well. Tolerating a diet well. Managing his ostomy well. Physical Exam Vital Signs: Temp Pulse Resp BP Pulse Ox 97.7 F 76 20 139/75 H 98 05/29/17 11:37 05/29/17 11:37 05/29/17 11:37 05/29/17 11:37 05/29/17 11:37 Intake & Output 05/28/17 05/29/17 05/30/17 06:59 06:59 06:59 Intake Total 3599 2522 Output Total 4800 3500 Balance -1201 -978 Weight 113.8 kg 106.4 kg General appearance: PRESENT: no acute distress, cooperative Respiratory exam: PRESENT: clear to auscultation rory Cardiovascular exam: PRESENT: RRR GI/Abdominal exam: PRESENT: other - Soft, nondistended, nontender to palpation. Wound is clean. Packing is removed. No drainage. No erythema. Extremities exam: PRESENT: other - No legs swelling Results Laboratory Results: 05/29/17 05:15 05/29/17 05:15 05/29/17 05/29/17 05:15 05:15 WBC 11.6 H RBC 3.84 L Hgb 11.8 L Hct 35.6 L MCV 93 MCH 30.8 MCHC 33.2 RDW 12.8 Plt Count 277 Seg Neutrophils % 73.0 Lymphocytes % 12.1 L Monocytes % 11.2 Eosinophils % 2.9 Basophils % 0.8 Absolute Neutrophils 8.4 H Absolute Lymphocytes 1.4 Absolute Monocytes 1.3 Absolute Eosinophils 0.3 Absolute Basophils 0.1 Sodium 143.0 Potassium 3.8 Chloride 109 H Carbon Dioxide 23 Anion Gap 11 BUN 13 Creatinine 0.59 Est GFR ( Amer) > 60 Est GFR (Non-Af Amer) > 60 Glucose 92 Calcium 8.7 Magnesium 2.1 Total Bilirubin 0.7 AST 63 H ALT 106 H Alkaline Phosphatase 76 Total Protein 5.8 L Albumin 2.7 L 05/23/17 05/23/17 05/23/17 05:55 05:55 08:00 Creatine Kinase 153 157 CK-MB (CK-2) 1.24 Troponin I < 0.012 05/23/17 05/23/17 05/23/17 08:00 13:25 13:25 Creatine Kinase 144 CK-MB (CK-2) 1.34 1.27 Troponin I < 0.012 < 0.012 05/23/17 05/23/17 05/24/17 18:30 18:55 03:49 Creatine Kinase 609 H 601 H CK-MB (CK-2) 3.10 Troponin I < 0.012 Impressions: Abdomen/Pelvis CT 05/22/17 00:00 IMPRESSION: CT FINDINGS COMPATIBLE WITH PERFORATED DIVERTICULITIS WITH 4.6 CM DEVELOPING ABSCESS AND SMALL AMOUNT OF FREE INTRAPERITONEAL AIR DESCRIBED ABOVE. THERE IS MARKED THICKENING OF ADJACENT SMALL BOWEL WITH TETHERING TO THE SIGMOID COLON WITHOUT DEFINITE FISTULA IDENTIFIED AT THIS TIME. INCIDENTAL NOTE MADE OF POSSIBLE 12 MM SOLID MASS VERSUS HYPERDENSE CYST RIGHT KIDNEY. RECOMMEND FOLLOW-UP MRI FOR COMPLETE CHARACTERIZATION. Venous Doppler Study 05/24/17 00:00 IMPRESSION: Extensive deep and superficial venous thrombosis as noted above Chest X-Ray 05/26/17 06:00 IMPRESSION: Interval extubation. Otherwise, no significant interval change including bibasilar opacities. Assessment & Plan - Diagnosis (1) Perforation of sigmoid colon due to diverticulitis Is this a current diagnosis for this admission?: YesPlan: Status post Romeo's procedure. Patient doing well. Will discharge patient home. (2) Renal mass Is this a current diagnosis for this admission?: Yes
--- NOTE | 2017-05-29 15:48 | DISCHARGE SUMMARY E ---
Discharge Summary NAME: LORAINE GRIGSBY : 1960 AGE: 56Y ADMITTED: 05/22/2017 DISCHARGED: 05/29/2017 DISCHARGE DIAGNOSES: 1. Perforated sigmoid diverticulitis with peritonitis. 2. A 12 mm right kidney lesion. 3. Left upper extremity brachial vein thrombosis. 4. Aspiration pneumonia. 5. Colon polyposis. PROCEDURE PERFORMED DURING HOSPITALIZATION: Exploratory laparotomy with sigmoid colon resection end colostomy and abdominal cavity wash out performed by Germaine Jones MD on 05/23/2017. HOSPITAL COURSE: The patient underwent the above-mentioned procedure. His postoperative course was remarkable for aspiration pneumonia which responded well with antibiotics and pulmonary toilet. The patient was also noted with left upper arm swelling with ultrasound demonstrating brachial vein thrombosis, but no evidence of extension of the clot into the axillary nor the subclavian vein. He was treated in the hospital with anticoagulation. The patient had gradual resumption of bowel function. He was tolerating a solid diet well at the time of discharge with good colostomy function. He felt comfortable managing his colostomy. Of note, his admission CT scan demonstrated an incidental right kidney mass versus a cyst. Radiology recommendation was that of an MRI to further evaluate this 12 mm lesion on the right kidney. The patient was also noted on his surgical specimen, evidence of diverticulitis with perforation as well as multiple pedunculated adenomatous polyps, largest one measuring 1.8 cm in size. There was no evidence of malignancy; however. The pathology report was consistent with probable polyposis syndrome. The patient denied any family history of colon cancer nor colon polyps. The patient will require colonoscopy via his ostomy as well as endoscopy of his rectal stump with probable total colectomy in the future. The patient is now being discharged to home in good condition. He will follow up with me next week. He may shower. He is to apply a dry dressing to his wound. His abdominal wound packings were removed prior to discharge. He was encouraged to stay active. DISCHARGE MEDICATIONS: 1. He may resume all of his home medications. 2. Additional medication is Percocet 1 p.o. every 4 hours p.r.n. pain. 3. Colostomy supplies. DICTATING PHYSICIAN: GERMAINE JONES M.D. [id number] Y#: [id number] ID: [id number] JOB#: [id number] ACCT: [id number] cc:Deejay TRAN M.D. >
--- NOTE | 2017-06-09 17:16 | PDOC PROGRESS REPORT ---
Subjective Progress Note for:: 05/29/17 Subjective:: Awake alert without complaints Physical Exam Vital Signs: Temp Pulse Resp BP Pulse Ox 97.7 F 76 20 139/75 H 98 05/29/17 16:39 05/29/17 16:39 05/29/17 16:39 05/29/17 16:39 05/29/17 16:39 General appearance: PRESENT: no acute distress, cooperative, disheveled, well- developed Head exam: PRESENT: atraumatic, normocephalic Eye exam: PRESENT: conjunctiva pale, EOMI Mouth exam: PRESENT: neck supple, tongue midline Neck exam: ABSENT: carotid bruit, JVD, lymphadenopathy, thyromegaly Respiratory exam: PRESENT: decreased breath sounds, prolonged expiratory phas, rhonchi, symmetrical, unlabored Cardiovascular exam: PRESENT: RRR, +S1, +S2 Pulses: PRESENT: normal radial pulses GI/Abdominal exam: PRESENT: normal bowel sounds, soft. ABSENT: distended, guarding, mass, organolmegaly, rebound, tenderness Rectal exam: PRESENT: deferred Neurological exam: PRESENT: alert, awake Psychiatric exam: PRESENT: normal mood Skin exam: PRESENT: dry, warm Results Laboratory Results: 05/29/17 05:15 05/29/17 05:15 05/23/17 05/23/17 05/23/17 05:55 05:55 08:00 Creatine Kinase 153 157 CK-MB (CK-2) 1.24 Troponin I < 0.012 05/23/17 05/23/17 05/23/17 08:00 13:25 13:25 Creatine Kinase 144 CK-MB (CK-2) 1.34 1.27 Troponin I < 0.012 < 0.012 05/23/17 05/23/17 05/24/17 18:30 18:55 03:49 Creatine Kinase 609 H 601 H CK-MB (CK-2) 3.10 Troponin I < 0.012 Impressions: Abdomen/Pelvis CT 05/22/17 00:00 IMPRESSION: CT FINDINGS COMPATIBLE WITH PERFORATED DIVERTICULITIS WITH 4.6 CM DEVELOPING ABSCESS AND SMALL AMOUNT OF FREE INTRAPERITONEAL AIR DESCRIBED ABOVE. THERE IS MARKED THICKENING OF ADJACENT SMALL BOWEL WITH TETHERING TO THE SIGMOID COLON WITHOUT DEFINITE FISTULA IDENTIFIED AT THIS TIME. INCIDENTAL NOTE MADE OF POSSIBLE 12 MM SOLID MASS VERSUS HYPERDENSE CYST RIGHT KIDNEY. RECOMMEND FOLLOW-UP MRI FOR COMPLETE CHARACTERIZATION. Venous Doppler Study 05/24/17 00:00 IMPRESSION: Extensive deep and superficial venous thrombosis as noted above Chest X-Ray 05/26/17 06:00 IMPRESSION: Interval extubation. Otherwise, no significant interval change including bibasilar opacities. Assessment & Plan - Diagnosis (1) COPD (chronic obstructive pulmonary disease) Qualifiers: COPD type: unspecified COPD Qualified Code(s): J44.9 - Chronic obstructive pulmonary disease, unspecified Is this a current diagnosis for this admission?: Yes (2) Severe sepsis with septic shock Is this a current diagnosis for this admission?: No
== END 2017-05-29 17:10 | disposition home health service (06) | DRG 853 ==
LOC: ER 13:17 → UNDOADMIN 18:15 → EH 18:15 → 5 19:57 → EH 19:57 → ICU 05-23 00:43 → 5 05-23 00:43 → 3W 05-26 15:16
PROVIDERS: ADMIT Surgery; ATTEND Surgery
PROC: 0DTN0ZZ Resection of Sigmoid Colon, Open Approach (ICD-10-PCS; principal; 2017-05-23)
PROC: 0D1N0Z4 Bypass Sigmoid Colon to Cutaneous, Open Approach (ICD-10-PCS; 2017-05-23)
PROC: 0BH17EZ Insertion of Endotracheal Airway into Trachea, Via Natural or Artificial Opening (ICD-10-PCS; 2017-05-23)
PROC: 5A1945Z Respiratory Ventilation, 24-96 Consecutive Hours (ICD-10-PCS; 2017-05-23)
PROC: 02H633Z Insertion of Infusion Device into Right Atrium, Percutaneous Approach (ICD-10-PCS; 2017-05-24)
PROC: B244ZZZ Ultrasonography of Right Heart (ICD-10-PCS; 2017-05-24)
DX: A41.9 Sepsis, unspecified organism (principal); R65.21 Severe sepsis with septic shock; J69.0 Pneumonitis due to inhalation of food and vomit; K57.20 Diverticulitis of large intestine with perforation and abscess without bleeding; D62 Acute posthemorrhagic anemia; I82.622 Acute embolism and thrombosis of deep veins of left upper extremity; I10 Essential (primary) hypertension; N28.89 Other specified disorders of kidney and ureter; J44.9 Chronic obstructive pulmonary disease, unspecified; E83.39 Other disorders of phosphorus metabolism; I87.8 Other specified disorders of veins; D50.9 Iron deficiency anemia, unspecified; E87.6 Hypokalemia; K59.00 Constipation, unspecified; F17.210 Nicotine dependence, cigarettes, uncomplicated; Z79.899 Other long term (current) drug therapy; Z79.51 Long term (current) use of inhaled steroids
CPT/HCPCS: 00840; 36415; 51702; 71010; 74177; 80048; 80053; 81001; 82150; 82272; 82550; 82553; 82607; 82728; 82746; 82803; 82962; 83036; 83540; 83550; 83690; 83735; 84100; 84132; 84466; 84484; 85025; 85027; 85045; 85610; 85730; 86850; 86900; 86901; 87040; 87070; 87205; 88309; 93005; 93010; 93971; 94002; 94003; 94668; 94799; 96374; 99284; C1751; J1170; J1644; J1650; J1885; J1940; J1956; J2250; J2270; J2370; J2543; J2550; J2704; J3010; J3475; J3480; J3490; J7030; J7040; J7060; J7620

== ENCOUNTER 2017-09-02 07:23 | Day surgery (SDC) | payer OTHER ==
[~2017-09-02 07:23] MED LIST changes: +EPINEPHRINE INJ 1 MG/10 ML DISP.SYRIN ONE; +FENTANYL CITRATE INJ/PF 100 MCG/2 ML AMPUL ONE; +FLUMAZENIL INJ 0.5 MG/5 ML VIAL ONE; +GLUCAGON,HUMAN RECOMB 1 MG INJ ONE; +GLYCOPYRROLATE INJ 0.4 MG/2 ML VIAL ONE; -LIDOCAINE 2% INJ-PF (20 MG/ML) 10 ML AMPUL ONE; +MIDAZOLAM 2 MG/2 ML INJ ONE; +NALOXONE HCL INJ/PF 0.4 MG/1 ML SDV ONE; +ONDANSETRON HCL INJ/PF 4 MG/2 ML SDV ONE; -PHENYLEPHRINE HCL INJ/PF 10 MG/1 ML SDV ONE; -ROCURONIUM BROMIDE INJ 50 MG/5 ML VIAL IV ONE; -VECURONIUM BROMIDE INJ 10 MG VIAL IV ONE
[2017-09-02 07:38] LABS: HEMATOCRIT 44.5 % (37.9-51.0); HEMOGLOBIN 15.6 g/dL (13.5-17.0); HGB HCT DIFFERENCE 2.3; MEAN CORPUSCULAR HEMOGLOBIN 32.6 pg (27.0-33.4); MEAN CORPUSCULAR HGB CONC 35.1 g/dL (32.0-36.0); MEAN CORPUSCULAR VOLUME 93 fl (80-97); RED BLOOD COUNT 4.78 10^6/uL (4.35-5.55); RED CELL DISTRIBUTION WIDTH 13.8 % (11.5-14.0); WHITE BLOOD COUNT 9.8 10^3/uL (4.0-10.5)
[2017-09-02 08:00] LABS: ANION GAP 17 (5-19); BLOOD UREA NITROGEN 10 mg/dL (7-20); CALCIUM 10.4 mg/dL (8.4-10.2); CARBON DIOXIDE 21 mmol/L (22-30); CHLORIDE 109 mmol/L (98-107); CREATININE RESULT 0.87 mg/dL (0.52-1.25); GLUCOSE 122 mg/dL (75-110); SODIUM 146.5 mmol/L (137-145)
[2017-09-02] MEDS: MIDAZOLAM 2 MG/2 ML INJ ONE ×2 (08:50→08:55)
--- NOTE | 2017-09-02 09:44 | Operative Report ---
Operative Report DATE OF SURGERY: 09/02/17 PREOPERATIVE DIAGNOSIS: Colon polyps POSTOPERATIVE DIAGNOSIS: Polyposis syndrome of the colon OPERATION: Colonoscopy with colon polyp biopsies SURGEON: MARYELLEN JONES ANESTHESIA: Moderate Sedation TISSUE REMOVED OR ALTERED: Hepatic flexure polyp, descending colon polyp, mid rectal polyp, upper rectal polyp. COMPLICATIONS: None ESTIMATED BLOOD LOSS: Minimal INTRAOPERATIVE FINDINGS: About 20-30 polyps scattered throughout the colon. 3 cm mass at the hepatic flexure and 3 cm mass at the distal aspect of the descending colon. 2 cm sessile polyp at the mid rectum and a cluster of 1-2 cm polyps at the upper rectum. Smaller polyps scattered through the rectum. Lipoma at the cecum. PROCEDURE: Informed consent was obtained. Patient was brought to the endoscopy suite. IV sedation with Versed and fentanyl was administered. Endoscope was passed via the patient's colostomy and fed to the cecum. The bowel prep was good. Visualization was good. At the cecum there was a 3 cm lipoma. Scattered throughout the entire colon from the cecum to the descending colon were multiple polyps ranging from 1-3 cm in size. I estimated approximately 20-30 polyps that were seen. The 2 most prominent polyps were at the hepatic flexure and at the distal aspect of the descending colon, these polyps measuring about 3 cm in size. These 2 polyps were biopsied. Patient was repositioned. Digital rectal exam revealed no palpable perianal masses. Endoscope was passed via the patient's anus into the rectal stump. There was some debris in the rectal stump that required irrigation and aspiration. There were small polyps scattered in the rectum. At the mid rectum there was an approximately 2 cm sessile polyp which was biopsied. At the upper rectum there was a cluster of 1-2 cm polyps and the largest one was biopsied.
--- NOTE | 2017-09-02 09:47 | PDOC DISCHARGE SUMMARY ---
Discharge Summary (SDC) - Discharge Final Diagnosis: Polyposis of the colon. Date of Surgery: 09/02/17 Discharge Date: 09/02/17 Condition: Good Treatment or Instructions: Colonoscopy with biopsies. May discharge patient home when met discharge criteria. Follow-up with me in 2 weeks. Hold Xarelto for 5 days and if no bleeding may resume. Referrals: ANDREW TABOR, SAKSHIC [Primary Care Provider] - Discharge Diet: As Tolerated Discharge Activity: Activity As Tolerated Report the Following to Your Physician Immediately: Increase in Pain, Unusual Bleeding
[2017-09-02 10:27] VITALS: BP 110/74
== END 2017-09-02 10:30 | disposition home or self-care (01) ==
LOC: END 07:23
PROVIDERS: ATTEND Surgery
PROC: 0DBP8ZX Excision of Rectum, Via Natural or Artificial Opening Endoscopic, Diagnostic (ICD-10-PCS; 2017-09-02)
PROC: 0DBM8ZX Excision of Descending Colon, Via Natural or Artificial Opening Endoscopic, Diagnostic (ICD-10-PCS; principal; 2017-09-02 08:30)
PROC: 0DBL8ZX Excision of Transverse Colon, Via Natural or Artificial Opening Endoscopic, Diagnostic (ICD-10-PCS; 2017-09-02 08:30)
DX: K63.5 Polyp of colon (principal); D12.8 Benign neoplasm of rectum; D12.4 Benign neoplasm of descending colon; D12.3 Benign neoplasm of transverse colon; D17.5 Benign lipomatous neoplasm of intra-abdominal organs; K57.32 Diverticulitis of large intestine without perforation or abscess without bleeding; F12.90 Cannabis use, unspecified, uncomplicated; E03.9 Hypothyroidism, unspecified; I10 Essential (primary) hypertension; J44.9 Chronic obstructive pulmonary disease, unspecified; Z93.3 Colostomy status; Z87.891 Personal history of nicotine dependence; Z79.891 Long term (current) use of opiate analgesic; Z79.01 Long term (current) use of anticoagulants; Z86.718 Personal history of other venous thrombosis and embolism
CPT/HCPCS: 46606; 44389; 36415; 85027; 80048; 88305 ×2; J2250; J3010; J0171; J1610; J2310; J2405; J3490

== ENCOUNTER 2018-05-25 16:32 | Emergency (ER) | payer OTHER ==
[2018-05-25] MEDS ORDERED: FENTANYL CITRATE INJ/PF 100 MCG/2 ML AMPUL IV ONE ×2 (17:11→22:31)
[2018-05-25] MEDS ORDERED: METOCLOPRAMIDE HCL INJ/PF 10 MG/2 ML SDV IV ONE (17:11)
--- NOTE | 2018-05-25 17:13 | ER Document Report ---
ED Medical Screen (RME) - General Chief Complaint: Flank Pain Stated Complaint: FLANK PAIN/COLOSTOMY ISSUES Time Seen by Provider: 05/25/18 17:03 Notes: RAPID MEDICAL EVALUATION DISCLOSURE I have seen this patient as part of a Rapid Medical Evaluation and, if applicable, placed any initially appropriate orders. The patient will be seen and fully evaluated, including a full history and physical exam, by a provider ( in Main ED or Fast Track) when a room becomes available. 57-year-old male [facility] stage I colon cancer diverticulitis here with complaints of left-sided abdominal pain that starts at his left testicle and radiates up to his left upper abdomen as well as nausea, decreased ostomy output, excessive belching ongoing for the past few days. He has tried oxycodone for the pain with minimal relief. He denies any history of obstruction but did have perforation due to diverticulitis. EXAM Left upper/lower quadrant TTP TRAVEL OUTSIDE OF THE [place] IN LAST 30 DAYS: No - Related Data Allergies/Adverse Reactions: No Known Allergies Allergy (Verified 05/25/18 17:10) Past Medical History - Social History Chew tobacco use (# tins/day): No Frequency of alcohol use: None Drug Abuse: Marijuana - Past Medical History Cardiac Medical History: Reports: Hx Hypertension Denies: Hx Coronary Artery Disease, Hx Heart Attack Pulmonary Medical History: Denies: Hx Asthma, Hx Bronchitis, Hx COPD, Hx Pneumonia Neurological Medical History: Denies: Hx Cerebrovascular Accident, Hx Seizures Renal/ Medical History: Denies: Hx Peritoneal Dialysis Musculoskeltal Medical History: Denies Hx Arthritis Past Surgical History: Reports: Other - Septorhinoplasty in the remote past. - Immunizations Hx Diphtheria, Pertussis, Tetanus Vaccination: Yes Physical Exam - Vital signs Vitals: Temp Pulse Resp BP Pulse Ox 98.8 F 87 16 129/70 H 99 05/25/18 17:01 05/25/18 17:01 05/25/18 17:01 05/25/18 17:01 05/25/18 17:01 Course - Vital Signs Vital signs: Temp Pulse Resp BP Pulse Ox 98.8 F 87 16 129/70 H 99 05/25/18 17:01 05/25/18 17:01 05/25/18 17:01 05/25/18 17:01 05/25/18 17:01 Doctor's Discharge - Discharge Referrals: ANDREW TABOR, RISK CONTROL DIRECTOR-C [Primary Care Provider] - Follow up as needed
[2018-05-25 18:09] LABS: ABSOLUTE LYMPHOCYTES (AUTO) 1.6 10^3/uL (0.5-4.7); ABSOLUTE MONOCYTES (AUTO) 1.6 10^3/uL (0.1-1.4); ABSOLUTE NEUT (AUTO) 15.8 10^3/uL (1.7-8.2); BASOPHILS % (AUTO) 0.2 % (0-2); HEMATOCRIT 47.5 % (37.9-51.0); HEMOGLOBIN 16.5 g/dL (13.5-17.0); LYMPHOCYTES % (AUTO) 8.4 % (13-45); MEAN CORPUSCULAR HGB CONC 34.7 g/dL (32.0-36.0); MEAN CORPUSCULAR VOLUME 93 fl (80-97); MONOCYTES % (AUTO) 8.6 % (3-13); PLATELET COUNT 261 10^3/uL (150-450); RED BLOOD COUNT 5.14 10^6/uL (4.35-5.55); RED CELL DISTRIBUTION WIDTH 12.7 % (11.5-14.0); SEGMENTED NEUTROPHILS % (AUTO) 82.8 % (42-78); TOTAL CELLS COUNTED % (AUTO) 100 %; WHITE BLOOD COUNT 19.1 10^3/uL (4.0-10.5)
--- NOTE | 2018-05-25 18:10 | ER Document Report ---
ED GI/ - General Chief Complaint: Flank Pain Stated Complaint: FLANK PAIN/COLOSTOMY ISSUES Time Seen by Provider: 05/25/18 17:03 Mode of Arrival: Ambulatory Information source: Patient Notes: Chief complaint: abdominal pain: History of complain:( obtained from----patient) 57 years old male presents today with left flank pain left lower abdominal pain as well as left scrotal pain, since last night. Apparently middle of sexual intercourse, this pain came upon. Which is sharp. Associated with nausea no vomiting. Denies any fever chills or other constitutional symptoms. He has a history of diverticular abscess diverticulitis As well as colostomy bag on the left lower abdomen. Reversal was scheduled next week. Onset:As above sudden Duration: Since last night Severity: Moderate to severe Quality: Sharp Context: Unknown Exacerbating factor and relieving factors: Change of position REVIEW OF SYSTEMS: CONSTITUTIONAL : Denies fever, chills, or sweats. Denies recent illness. EENT: Denies eye, ear, throat, or mouth pain or symptoms. Denies nasal or sinus congestion or discharge. Denies throat, tongue, or mouth swelling or difficulty swallowing. CARDIOVASCULAR: Denies chest pain. Denies palpitations or racing or irregular heart beat. Denies ankle edema. RESPIRATORY: Denies cough, cold, or chest congestion. Denies shortness of breath, difficulty breathing, or wheezing. GASTROINTESTINAL: Denies distention. Denies nausea, vomiting, or diarrhea. Denies blood in vomitus, stools, or per rectum. Denies black, tarry stools. Denies constipation. GENITOURINARY: Denies difficulty urinating, painful urination, burning, frequency, blood in urine, or discharge. FEMALE GENITOURINARY: Denies vaginal bleeding, heavy or abnormal periods, irregular periods. Denies vaginal discharge or odor. MUSCULOSKELETAL: Denies back or neck pain or stiffness. Denies joint pain or swelling. SKIN: Denies rash, lesions or sores. HEMATOLOGIC : Denies easy bruising or bleeding. LYMPHATIC: Denies swollen, enlarged glands. NEUROLOGICAL: Denies confusion or altered mental status. Denies passing out or loss of consciousness. Denies dizziness or lightheadedness. Denies headache. Denies weakness or paralysis or loss of use of either side. Denies problems with gait or speech. Denies sensory loss, numbness, or tingling. Denies seizures. PSYCHIATRIC: Denies anxiety or stress. Denies depression, suicidal ideation, or homicidal ideation. ALL OTHER SYSTEMS REVIEWED AND NEGATIVE. PHYSICAL EXAMINATION: GENERAL: Well-appearing, well-nourished and in no acute distress. HEAD: Atraumatic, normocephalic. EYES: Pupils equal round and reactive to light, extraocular movements intact, conjunctiva are normal. ENT: Nares patent, oropharynx clear without exudates. Moist mucous membranes. NECK: Normal range of motion, supple without lymphadenopathy LUNGS: Breath sounds clear to auscultation bilaterally and equal. No wheezes rales or rhonchi. HEART: Regular rate and rhythm without murmurs ABDOMEN: Soft, diffuse tenderness over the left side of the abdomen was noted, no guarding.. No guarding, no rebound. No masses appreciated. Left flank muscular tenderness noted : Testicles appears normal, scrotum is normal. Questionable tenderness over the left testicle. No groin or inguinal canal tenderness noted. Musculoskeletal: Normal range of motion, no pitting or edema. No cyanosis. NEUROLOGICAL: Cranial nerves grossly intact. Normal speech, normal gait. Normal sensory, motor exams PSYCH: Normal mood, normal affect. SKIN: Warm, Dry, normal turgor, no rashes or lesions noted. Dictation was performed using [employer] voice recognition software TRAVEL OUTSIDE OF THE [place] IN LAST 30 DAYS: No - Related Data Allergies/Adverse Reactions: No Known Allergies Allergy (Verified 05/25/18 17:10) Past Medical History - General Information source: Patient - Social History Smoking Status: Current Every Day Smoker Chew tobacco use (# tins/day): No Frequency of alcohol use: None Drug Abuse: Marijuana Lives with: Family Family History: COPD, Hypertension Patient has suicidal ideation: No Patient has homicidal ideation: No - Past Medical History Cardiac Medical History: Reports: Hx Hypertension Denies: Hx Coronary Artery Disease, Hx Heart Attack Pulmonary Medical History: Denies: Hx Asthma, Hx Bronchitis, Hx COPD, Hx Pneumonia Neurological Medical History: Denies: Hx Cerebrovascular Accident, Hx Seizures Renal/ Medical History: Denies: Hx Peritoneal Dialysis Musculoskeltal Medical History: Denies Hx Arthritis Past Surgical History: Reports: Other - Septorhinoplasty in the remote past. - Immunizations Hx Diphtheria, Pertussis, Tetanus Vaccination: Yes Review of Systems - Review of Systems Notes: Dictated Physical Exam - Vital signs Vitals: Temp Pulse Resp BP Pulse Ox 98.8 F 87 16 129/70 H 99 05/25/18 17:01 05/25/18 17:01 05/25/18 17:01 05/25/18 17:01 05/25/18 17:01 - Notes Notes: Dictated Course - Vital Signs Vital signs: Temp Pulse Resp BP Pulse Ox 98.3 F 76 18 116/58 L 95 05/25/18 22:23 05/25/18 22:23 05/25/18 22:23 05/25/18 22:23 05/25/18 22:23 - Laboratory Result Diagrams: 05/25/18 22:15 05/25/18 17:20 Laboratory results interpreted by me: 05/25/18 05/25/18 05/25/18 17:20 17:20 19:00 WBC 19.1 H Seg Neutrophils % 82.8 H Lymphocytes % 8.4 L Absolute Neutrophils 15.8 H Absolute Monocytes 1.6 H Glucose 124 H Urine Ketones TRACE H Urine Blood SMALL H 05/25/18 22:15 WBC 19.3 H Seg Neutrophils % 81.4 H Lymphocytes % 9.4 L Absolute Neutrophils 15.7 H Absolute Monocytes 1.7 H Glucose Urine Ketones Urine Blood - Diagnostic Test Radiology reviewed: Reports reviewed - CT of the abdomen reported by radiologist as left ureteric stone and hydronephrosis. Ultrasound of the testicle reported by radiologist as negative Discharge - Discharge Clinical Impression: Abdominal pain Qualifiers: Abdominal location: left lower quadrant Qualified Code(s): R10.32 - Left lower quadrant pain Hydronephrosis Qualifiers: Hydronephrosis type: with ureteral calculous obstruction Qualified Code(s): N13.2 - Hydronephrosis with renal and ureteral calculous obstruction Condition: Fair Disposition: ADMITTED INPATIENT Admitting Provider: Hospitalist Unit Admitted: Telemetry Referrals: ANDREW TABOR FNP-C [Primary Care Provider] - Follow up as needed
[2018-05-25 18:25] LABS: ALANINE AMINOTRANSFERASE 37 U/L (21-72); ALBUMIN 4.3 g/dL (3.5-5.0); ALKALINE PHOSPHATASE 71 U/L (38-126); ANION GAP 16 (5-19); ASPARTATE AMINO TRANSFERASE 25 U/L (17-59); BILIRUBIN,DIRECT 0.4 mg/dL (0.0-0.4); BILIRUBIN,TOTAL 0.9 mg/dL (0.2-1.3); BLOOD UREA NITROGEN 14 mg/dL (7-20); CALCIUM 10.1 mg/dL (8.4-10.2); CARBON DIOXIDE 22 mmol/L (22-30); CHLORIDE 103 mmol/L (98-107); GLUCOSE 124 mg/dL (75-110); LIPASE 138.9 U/L (23-300); POTASSIUM 3.8 mmol/L (3.6-5.0); SODIUM 140.9 mmol/L (137-145); TOTAL PROTEIN 7.7 g/dL (6.3-8.2)
[2018-05-25] MEDS ORDERED: PIPERACILLIN/TAZOBACTAM 3.375 GM VIAL IV ONE (19:09)
--- NOTE | 2018-05-25 19:12 | RADIOLOGY REPORT (SQ) ---
EXAM DESCRIPTION: U/S SCROTUM W/DOPPLER COMPLETED DATE/TIME: 05/25/2018 6:59 pm REASON FOR STUDY: L testicular pain; eval torsion COMPARISON: None. TECHNIQUE: Static and realtime oakley scale imaging of the scrotum and testes. Selected color Doppler and spectral images recorded to document blood flow. LIMITATIONS: None. FINDINGS: RIGHT: TESTICLE: Normal size, 4.2 x 1.8 x 2.7 cm. Normal echotexture. Normal blood flow. No mass. EPIDIDYMIS: 1.8 x 1.1 x 1.5 cm. There is a 6 mm epididymal cyst. HYDROCELE OR VARICOCELE: Small hydrocele with internal echoes. HERNIA OR EXTRA-TESTICULAR MASS: No. OTHER: No other significant finding. LEFT: TESTICLE: Normal size 4.8 by 2.7 x 2.8 cm. Normal echotexture. Normal blood flow. No mass. EPIDIDYMIS: 2 x 1.3 x 1.6 cm. Its multiple epididymal cysts. The largest measures 11 mm. HYDROCELE OR VARICOCELE: Hydrocele with some internal echoes in the fluid. HERNIA OR EXTRA-TESTICULAR MASS: No. OTHER: No other significant finding. IMPRESSION: 1. Bilateral epididymal cysts. 2. Small hydroceles with internal echoes. 3. The testes are normal and there is normal blood flow. TECHNICAL DOCUMENTATION: JOB ID: [id number] [employer]- All Rights Reserved Reading location - IP/workstation name: [email or web address]
[2018-05-25 19:31] LABS: APPEARANCE,URINE CLEAR; BILIRUBIN,URINE NEGATIVE (NEGATIVE); COLOR,URINE YELLOW; GLUCOSE, URINE NEGATIVE (NEGATIVE); KETONES,URINE TRACE mg/dL (NEGATIVE); LEUKOCYTE ESTERASE,URINE NEGATIVE (NEGATIVE); NITRITE,URINE NEGATIVE (NEGATIVE); PROTEIN,URINE NEGATIVE (NEGATIVE); URINE SPECIFIC GRAVITY 1.015; UROBILINOGEN,URINE NEGATIVE mg/dL (<2.0)
--- NOTE | 2018-05-25 20:39 | RADIOLOGY REPORT (SQ) ---
EXAM DESCRIPTION: CT ABD/PELVIS WITH IV ORAL COMPLETED DATE/TIME: 05/25/2018 8:17 pm REASON FOR STUDY: naus dec ostomy OP abd pain; eval obstruction COMPARISON: 05/22/2017 TECHNIQUE: CT scan of the abdomen and pelvis performed using helical scanning technique with dynamic intravenous contrast injection. Oral contrast. Images reviewed with lung, soft tissue, and bone win dows. Reconstructed coronal and sagittal MPR images reviewed. Delayed images for evaluation of the ur inary system also acquired. All images stored on PACS. All CT scanners at this facility use dose modulation, iterative reconstruction, and/or weight based d osing when appropriate to reduce radiation dose to as low as reasonably achievable (ALARA). [facility]: Dose Right [facility]: CareDose [facility]: Dose Right [facility]: Teradose 4D [facility]: VMO Systems CONTRAST TYPE AND DOSE: contrast/concentration: Isovue 370.00 mg/ml; Total Contrast Delivered: 100.0 ml; Total Saline Delivered: 40.0 ml RENAL FUNCTION: BUN 14 creatinine 1.1 RADIATION DOSE: CT Rad equipment meets quality standard of care and radiation dose reduction techniq ues were employed. CTDIvol: 15.6 - 19.6 mGy. DLP: 1988 mGy-cm.. LIMITATIONS: None. FINDINGS: LOWER CHEST: No significant findings. No nodules or infiltrates. LIVER: The liver is uniformly low in attenuation. No masses. SPLEEN: Normal size. No focal lesions. PANCREAS: Stable cystic lesion in the tail of the pancreas on image 28. Cannot exclude mild peripanc reatic inflammatory changes. GALLBLADDER: No identified stones by CT criteria. No inflammatory changes to suggest cholecystitis. ADRENAL GLANDS: No significant masses or asymmetry. RIGHT KIDNEY AND URETER: No solid masses. No significant calcifications. No hydronephrosis or hyd roureter. LEFT KIDNEY AND URETER: No solid masses. There is mild perinephric stranding. There is a 2 mm calc ification that is either in the bladder or perhaps in the intramural portion of the left ureter. Mi ld left hydronephrosis/ hydroureter. AORTA AND VESSELS: No aneurysm. No dissection. Renal arteries, SMA, celiac without stenosis. RETROPERITONEUM: No retroperitoneal adenopathy, hemorrhage or masses. BOWEL AND PERITONEAL CAVITY: There is an ostomy on the left. A portion of the sigmoid has been remov ed. Contrast is present in the small bowel to the distal ileum. APPENDIX: Normal. PELVIS: No mass. No free fluid. Normal bladder. ABDOMINAL WALL: No masses. No hernias. BONES: No significant or acute findings. OTHER: No other significant finding. IMPRESSION: 1. Left hydronephrosis and hydroureter secondary to 2 mm stone at the left UVJ. 2. Fatty infiltration of the liver. 3. Stable cystic lesion in the tail of the pancreas. 4. Surgical changes. TECHNICAL DOCUMENTATION: JOB ID: [id number] Quality ID # [id number]: Final reports with documentation of one or more dose reduction techniques (e.g., Au tomated exposure control, adjustment of the mA and/or kV according to patient size, use of iterative reconstruction technique) 2010 [employer]- All Rights Reserved Reading location - IP/workstation name: [email or web address]
[2018-05-25 22:34] LABS: ABSOLUTE LYMPHOCYTES (AUTO) 1.8 10^3/uL (0.5-4.7); ABSOLUTE MONOCYTES (AUTO) 1.7 10^3/uL (0.1-1.4); ABSOLUTE NEUT (AUTO) 15.7 10^3/uL (1.7-8.2); BASOPHILS % (AUTO) 0.2 % (0-2); EOSINOPHILS % (AUTO) 0.1 % (0-6); HEMATOCRIT 43.9 % (37.9-51.0); HEMOGLOBIN 15.4 g/dL (13.5-17.0); LYMPHOCYTES % (AUTO) 9.4 % (13-45); MEAN CORPUSCULAR HEMOGLOBIN 32.3 pg (27.0-33.4); MEAN CORPUSCULAR HGB CONC 35.1 g/dL (32.0-36.0); MEAN CORPUSCULAR VOLUME 92 fl (80-97); MONOCYTES % (AUTO) 8.9 % (3-13); PLATELET COUNT 221 10^3/uL (150-450); RED BLOOD COUNT 4.77 10^6/uL (4.35-5.55); RED CELL DISTRIBUTION WIDTH 13.1 % (11.5-14.0); SEGMENTED NEUTROPHILS % (AUTO) 81.4 % (42-78); TOTAL CELLS COUNTED % (AUTO) 100 %; WHITE BLOOD COUNT 19.3 10^3/uL (4.0-10.5)
[2018-05-26 02:21] VITALS: BP 124/77
--- NOTE | 2018-05-26 06:12 | PDOC CONSULTATION ---
Consultation Consult Date: 05/26/18 Attending physician:: MARIANNA GROVES Consult reason:: Nephrolithiasis History of Present Illness Admission Date/PCP: SAM DE LA TORRE Patient complains of: Left-sided flank pain History of Present Illness: LORAINE GRIGSBY is a 57 year old male with a past medical history of recent partial colectomy for complicated diverticulosis with subsequent colostomy. Patient presents with an abrupt onset of sharp 5 out of 4 intermittent left- sided flank pain occurring during intercourse. The pain radiates to his left testicle prompting evaluation emergency room. Patient denies previous episode or nephrolithiasis. In the emergency room his workup including CT reveals leukocytosis, hydroureter and hydro-nephrosis with a 2 mm stone. Urinalysis is unremarkable for blood, leukocyte or nitrate, he is afebrile, tolerating p.o. he requests discharge home yet receives IV antibiotics and hospitalist is consulted for admission. The patient and states the ER physician had not returned to disclose findings despite initiating treatment. Past Medical History Cardiac Medical History: Reports: Hypertension Denies: Coronary Artery Disease, Myocardial Infarction Pulmonary Medical History: Denies: Asthma, Bronchitis, Chronic Obstructive Pulmonary Disease (COPD), Pneumonia Neurological Medical History: Denies: Seizures Musculoskeltal Medical History: Denies: Arthritis Hematology: Denies: Anemia Past Surgical History Past Surgical History: Reports: Colostomy, Other - Septorhinoplasty in the remote past. Social History Lives with: Family Smoking Status: Current Every Day Smoker Frequency of Alcohol Use: None Hx Recreational Drug Use: No Hx Prescription Drug Abuse: No - Advance Directive Resuscitation Status: Full Code Family History Family History: COPD, Hypertension Parental Family History Reviewed: Yes Children Family History Reviewed: Yes Sibling(s) Family History Reviewed.: Yes Medication/Allergy Home Medications: Amlodipine Besylate [Norvasc 10 mg Tablet] 10 mg PO DAILY 05/22/17 Carvedilol [Coreg 6.25 mg Tablet] 6.25 mg PO Q12 05/22/17 Cyclobenzaprine HCl [Flexeril 10 mg Tablet] 10 mg PO BIDP PRN 05/22/17 Levothyroxine Sodium [Synthroid 0.05 mg Tablet] 50 mcg PO DAILY 05/22/17 Lisinopril/Hydrochlorothiazide [Lisinopril-Hctz 20-12.5 mg Tab] 1 each PO DAILY 05/22/17 Multivitamin [Tab-A-Ja] 1 each PO DAILY 05/22/17 Oxycodone HCl/Acetaminophen [Percocet 5-325 mg Tablet] 1 - 2 tab PO ASDIR PRN # 25 tablet 05/29/17 Oxycodone HCl/Acetaminophen [Percocet 5-325 mg Tablet] 1 tab PO Q6HP PRN #15 tab 05/26/18 Allergies/Adverse Reactions: No Known Allergies Allergy (Verified 05/25/18 17:10) Review of Systems Constitutional: ABSENT: chills, fever(s), headache(s), weight gain, weight loss Eyes: ABSENT: visual disturbances Ears: ABSENT: hearing changes Cardiovascular: ABSENT: chest pain, dyspnea on exertion, edema, orthropnea, palpitations Respiratory: ABSENT: cough, hemoptysis Gastrointestinal: ABSENT: abdominal pain, constipation, diarrhea, hematemesis, hematochezia, nausea, vomiting Genitourinary: ABSENT: dysuria, hematuria Musculoskeletal: ABSENT: joint swelling Integumentary: ABSENT: rash, wounds Neurological: ABSENT: abnormal gait, abnormal speech, confusion, dizziness, focal weakness, syncope Psychiatric: ABSENT: anxiety, depression, homidical ideation, suicidal ideation Endocrine: ABSENT: cold intolerance, heat intolerance, polydipsia, polyuria Hematologic/Lymphatic: ABSENT: easy bleeding, easy bruising Physical Exam Vital Signs: Temp Pulse Resp BP Pulse Ox 99.3 F 90 18 124/77 97 05/26/18 02:05 05/26/18 02:05 05/26/18 02:05 05/26/18 02:05 05/26/18 02:05 Intake & Output 05/24/18 05/25/18 05/26/18 11:59 11:59 11:59 Weight 107.501 kg General appearance: PRESENT: no acute distress, well-developed, well-nourished Head exam: PRESENT: atraumatic, normocephalic Eye exam: PRESENT: conjunctiva pink, EOMI, PERRLA. ABSENT: scleral icterus Ear exam: PRESENT: normal external ear exam Mouth exam: PRESENT: moist, tongue midline Neck exam: ABSENT: carotid bruit, JVD, lymphadenopathy, thyromegaly Respiratory exam: PRESENT: clear to auscultation rory. ABSENT: rales, rhonchi, wheezes Cardiovascular exam: PRESENT: RRR. ABSENT: diastolic murmur, rubs, systolic murmur Pulses: PRESENT: normal dorsalis pedis pul Vascular exam: PRESENT: normal capillary refill GI/Abdominal exam: PRESENT: diminished bowel sounds, normal bowel sounds, soft, tenderness - Left flank tender to percussion. ABSENT: distended, guarding, mass , organolmegaly, rebound Rectal exam: PRESENT: deferred Extremities exam: PRESENT: full ROM. ABSENT: calf tenderness, clubbing, pedal edema Neurological exam: PRESENT: alert, awake, oriented to person, oriented to place , oriented to time, oriented to situation, CN II-XII grossly intact. ABSENT: motor sensory deficit Psychiatric exam: PRESENT: appropriate affect, normal mood. ABSENT: homicidal ideation, suicidal ideation Skin exam: PRESENT: dry, intact, warm. ABSENT: cyanosis, rash Results Laboratory Results: 05/25/18 22:15 05/25/18 17:20 05/25/18 05/25/18 05/25/18 17:20 17:20 19:00 WBC 19.1 H RBC 5.14 Hgb 16.5 Hct 47.5 MCV 93 MCH 32.0 MCHC 34.7 RDW 12.7 Plt Count 261 Seg Neutrophils % 82.8 H Lymphocytes % 8.4 L Monocytes % 8.6 Eosinophils % 0.0 Basophils % 0.2 Absolute Neutrophils 15.8 H Absolute Lymphocytes 1.6 Absolute Monocytes 1.6 H Absolute Eosinophils 0.0 Absolute Basophils 0.0 Sodium 140.9 Potassium 3.8 Chloride 103 Carbon Dioxide 22 Anion Gap 16 BUN 14 Creatinine 1.07 Est GFR ( Amer) > 60 Est GFR (Non-Af Amer) > 60 Glucose 124 H Lactic Acid Calcium 10.1 Total Bilirubin 0.9 AST 25 ALT 37 Alkaline Phosphatase 71 Total Protein 7.7 Albumin 4.3 Lipase 138.9 Urine Color YELLOW Urine Appearance CLEAR Urine pH 5.0 Ur Specific Bow 1.015 Urine Protein NEGATIVE Urine Glucose (UA) NEGATIVE Urine Ketones TRACE H Urine Blood SMALL H Urine Nitrite NEGATIVE Ur Leukocyte Esterase NEGATIVE Urine WBC (Auto) 2 Urine RBC (Auto) 1 05/25/18 05/25/18 19:30 22:15 WBC 19.3 H RBC 4.77 Hgb 15.4 Hct 43.9 MCV 92 MCH 32.3 MCHC 35.1 RDW 13.1 Plt Count 221 Seg Neutrophils % 81.4 H Lymphocytes % 9.4 L Monocytes % 8.9 Eosinophils % 0.1 Basophils % 0.2 Absolute Neutrophils 15.7 H Absolute Lymphocytes 1.8 Absolute Monocytes 1.7 H Absolute Eosinophils 0.0 Absolute Basophils 0.0 Sodium Potassium Chloride Carbon Dioxide Anion Gap BUN Creatinine Est GFR ( Amer) Est GFR (Non-Af Amer) Glucose Lactic Acid 1.7 Calcium Total Bilirubin AST ALT Alkaline Phosphatase Total Protein Albumin Lipase Urine Color Urine Appearance Urine pH Ur Specific Bow Urine Protein Urine Glucose (UA) Urine Ketones Urine Blood Urine Nitrite Ur Leukocyte Esterase Urine WBC (Auto) Urine RBC (Auto) Impressions: Abdomen/Pelvis CT 05/25/18 00:00 IMPRESSION: 1. Left hydronephrosis and hydroureter secondary to 2 mm stone at the left UVJ. 2. Fatty infiltration of the liver. 3. Stable cystic lesion in the tail of the pancreas. 4. Surgical changes. Scrotum Ultrasound 05/25/18 17:10 IMPRESSION: 1. Bilateral epididymal cysts. 2. Small hydroceles with internal echoes. 3. The testes are normal and there is normal blood flow. Assessment & Plan - Diagnosis (1) Nephrolithiasis Is this a current diagnosis for this admission?: Yes Plan: Secondary to dehydration, complicated by partial colectomy. Given a discrete 2 mm stone seen on CT as the cause of obstruction without evidence of infection patient is recommended to remain hydrated consuming 4 L of fluid per day 2 days with analgesic as needed. Return to the emergency room if develops fever, nausea vomiting or worsening pain. (2) Hydronephrosis Qualifiers: Hydronephrosis type: with ureteral calculous obstruction Qualified Code(s) : N13.2 - Hydronephrosis with renal and ureteral calculous obstruction Is this a current diagnosis for this admission?: Yes Plan: Secondary to #1, discrete 2 mm stone likely to pass with hydration. - Time Time Spent: 30 to 50 Minutes - Plan Summary Plan Summary: Discharge home
== END 2018-05-26 02:14 | disposition home or self-care (01) ==
LOC: ER 16:32
DX: N13.2 Hydronephrosis with renal and ureteral calculous obstruction (principal); R10.32 Left lower quadrant pain; N50.82 Scrotal pain; R11.0 Nausea; N50.812 Left testicular pain; F17.200 Nicotine dependence, unspecified, uncomplicated; I10 Essential (primary) hypertension; Z93.3 Colostomy status
CPT/HCPCS: 96376; 99285; 96375; 96365; 36415; 83690; 85025; 80053; 81001; 83605; 76870; 93976; 74177; J3010; J2765; J2543

== ENCOUNTER 2019-12-08 14:00 | Emergency (ER) | payer OTHER ==
[2019-12-08 14:27] VITALS: BP 137/69
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
== END 2019-12-08 14:47 | disposition home or self-care (01) ==
LOC: ER 14:00
DX: S09.90XA Unspecified injury of head, initial encounter (principal); M25.512 Pain in left shoulder; Y04.2XXA Assault by strike against or bumped into by another person, initial encounter; Y92.009 Unspecified place in unspecified non-institutional (private) residence as the place of occurrence of the external cause; F17.200 Nicotine dependence, unspecified, uncomplicated; F12.10 Cannabis abuse, uncomplicated; I10 Essential (primary) hypertension
CPT/HCPCS: 99283

== ENCOUNTER 2020-02-26 20:06 | Emergency (ER) | payer OTHER ==
--- NOTE | 2020-02-26 21:05 | RADIOLOGY REPORT (SQ) ---
CLINICAL INDICATION: right foot pain. . TECHNIQUE: 3 view(s) were obtained of the right foot. COMPARISON: None. FINDINGS: No acute displaced fracture is identified of the foot. Alignment appears anatomic. Joint spaces are within normal limits for age. Surrounding soft tissues are unremarkable. Posterior calcaneal spurring IMPRESSION: No evidence of acute displaced fracture of the foot.
[2020-02-26] MEDS ORDERED: CLINDAMYCIN 300 MG/D5W RTU 300 MG/50 ML RTUPB IV ONE (21:08)
--- NOTE | 2020-02-26 21:14 | ER Document Report ---
ED Extremity Problem, Lower - General Chief Complaint: Toe Injury Stated Complaint: PAIN IN RIGHT FOOT Time Seen by Provider: 02/26/20 20:41 Primary Care Provider: PAGE ARANA MD [Primary Care Provider] - 02/28/20 Notes: Patient is a 59-year-old male who presents to the emergency department with a chief complaint of right toe pain. About 2 months ago he had an ingrown toenail on his her right second toe that he ended up "digging out," and states that it has gotten progressively worse. He saw the PA at his primary care provider and was started on Keflex. Today is day 6 of the patient being on Keflex. States that he has not gotten any better. 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 Today he went to [facility] urgent care and was referred to the ED for further evaluation. TRAVEL OUTSIDE OF THE [place] IN LAST 30 DAYS: No - Related Data Allergies/Adverse Reactions: No Known Allergies Allergy (Verified 05/25/18 17:10) Past Medical History - General Information source: Patient - Social History Smoking Status: Current Every Day Smoker Chew tobacco use (# tins/day): No Frequency of alcohol use: None Drug Abuse: Marijuana Family History: COPD, Hypertension Patient has suicidal ideation: No Patient has homicidal ideation: No - Past Medical History Cardiac Medical History: Reports: Hx Hypertension Denies: Hx Coronary Artery Disease, Hx Heart Attack Pulmonary Medical History: Denies: Hx Asthma, Hx Bronchitis, Hx COPD, Hx Pneumonia Neurological Medical History: Denies: Hx Cerebrovascular Accident, Hx Seizures Renal/ Medical History: Denies: Hx Peritoneal Dialysis Musculoskeletal Medical History: Denies Hx Arthritis Past Surgical History: Reports: Hx Abdominal Surgery - hemicholectomy,, Hx Colostomy, Other - Septorhinoplasty in the remote past. - Immunizations Hx Diphtheria, Pertussis, Tetanus Vaccination: Yes Review of Systems - Review of Systems Notes: REVIEW OF SYSTEMS: CONSTITUTIONAL : Denies recent illness. Denies recent unintentional weight loss. Denies fever, chills, or sweats. EENT: Denies eye, ear, throat, or mouth pain, discharge, or symptoms. Denies nasal or sinus congestion. CARDIOVASCULAR: Denies chest pain. RESPIRATORY: Denies shortness of breath, cough, congestion, difficulty br eathing, or wheezing. GASTROINTESTINAL: Denies nausea, vomiting, and diarrhea. Denies abdominal pain. Denies constipation. GENITOURINARY: Denies difficulty urinating, burning, blood in urine, urgency or frequency. MUSCULOSKELETAL: Denies neck and back pain. See HPI. SKIN: See HPI. HEMATOLOGIC : Denies easy bruising or bleeding. LYMPHATIC: Denies swollen, painful, enlarged glands. NEUROLOGICAL: Denies no numbness or tingling denies weakness. Denies headache. Denies altered mental status. Denies alteration in speech. PSYCHIATRIC: Denies stress, anxiety, alteration in sleep patterns, or depression. All other systems reviewed and negative. Physical Exam - Vital signs Vitals: Temp Pulse Resp BP Pulse Ox 97.7 F 85 16 127/75 H 98 02/26/20 20:10 02/26/20 20:10 02/26/20 20:10 02/26/20 20:10 02/26/20 20:10 - Notes Notes: PHYSICAL EXAMINATION: GENERAL: Appears well, healthy, well-nourished, no acute distress. HEAD: Normocephalic, atraumatic. EYES: PERRL, conjunctiva normal, all extraocular movements intact, sclera nonicteric ENT: Moist mucous membranes. NECK: Supple, no noticeable swelling, redness, rash. Normal range of motion. LUNGS: Equal breath sounds bilaterally and clear to auscultation. No wheezes rales or rhonchi. CARDIOVASCULAR: S1-S2, regular rate, regular rhythm. Radial pulses 2+, normal. ABDOMEN: Normoactive bowel sounds. Soft, nontender, no guarding, no rebound tenderness, and no masses palpated. EXTREMITIES: Normal strength and range of motion, no pitting or edema. Erythema noted to right 2nd toe. NEUROLOGICAL: Moves all extremities upon command. Strength 5/5 in all extremities. PSYCH: Normal mood, normal affect. SKIN: Warm, dry. No rash, lesions, ulcerations noted. Normal skin turgor. Course - Re-evaluation Re-evalutation: 02/26/20 23:45 Patient has a mild leukocytosis of 11,400. Chemistries are unremarkable. X-ray is normal. Discussed these findings with Dr. Valdovinos, my attending. Dr. Valdovinos evaluated the patient and at this time, he suggests that the patient starts clindamycin and continues to his follow up appointment. Patient is in agreement with this plan. Follow-up precautions were given. Verbal discharge instructions were given to the patient. They verbalized understanding. They are stable for discharge. - Vital Signs Vital signs: Temp Pulse Resp BP Pulse Ox 97.5 F 67 16 131/84 H 100 02/27/20 00:17 02/27/20 00:17 02/27/20 00:17 02/27/20 00:17 02/27/20 00:17 - Laboratory Result Diagrams: 02/26/20 22:11 02/26/20 22:11 Laboratory results interpreted by me: 02/26/20 02/26/20 22:11 22:11 WBC 11.4 H Eos % (Auto) 6.6 H Absolute Eos (auto) 0.8 H BUN 23 H Discharge - Discharge Clinical Impression: Toe pain, right Cellulitis Qualifiers: Site of cellulitis: extremity Site of cellulitis of extremity: toe Laterality: right Qualified Code(s): L03.031 - Cellulitis of right toe Condition: Stable Disposition: HOME, SELF-CARE Additional Instructions: You are seen today in the emergency department for toe pain. Please start taking clindamycin to help with your toe cellulitis. Keep your follow-up appointment with your primary care provider. You are also being sent home with a [employer] dose pack. You can take 1 tablet at night to help with pain and sleeping. Continue to use your cane. Prescriptions: Clindamycin HCl [Cleocin 150 mg Capsule] 300 mg PO Q6 7 Days #56 capsule Referrals: PAGE ARANA MD [Primary Care Provider] - 02/28/20
[2020-02-26 22:28] LABS: ABSOLUTE BASOPHILS # (AUTO) 0.1 10^3/uL (0.0-0.2); ABSOLUTE EOSINOPHILS # (AUTO) 0.8 10^3/uL (0.0-0.6); ABSOLUTE MONOCYTES (AUTO) 1.1 10^3/uL (0.1-1.4); ABSOLUTE NEUT (AUTO) 6.4 10^3/uL (1.7-8.2); BASOPHILS % (AUTO) 0.8 % (0-2); EOSINOPHILS % (AUTO) 6.6 % (0-6); HEMATOCRIT 45.3 % (37.9-51.0); HEMOGLOBIN 15.7 g/dL (13.5-17.0); LYMPHOCYTES % (AUTO) 26.3 % (13-45); MEAN CORPUSCULAR HEMOGLOBIN 33.1 pg (27.0-33.4); MEAN CORPUSCULAR HGB CONC 34.8 g/dL (32.0-36.0); MEAN CORPUSCULAR VOLUME 95 fl (80-97); MONOCYTES % (AUTO) 9.8 % (3-13); PLATELET COUNT 242 10^3/uL (150-450); RED BLOOD COUNT 4.75 10^6/uL (4.35-5.55); RED CELL DISTRIBUTION WIDTH 13.6 % (11.5-14.0); SEGMENTED NEUTROPHILS % (AUTO) 56.5 % (42-78); TOTAL CELLS COUNTED % (AUTO) 100 %; WHITE BLOOD COUNT 11.4 10^3/uL (4.0-10.5)
[2020-02-26 22:33] LABS: INTERNATIONAL RATION (INR) 1.03; PROTHROMBIN TIME 13.5 SEC (11.4-15.4)
[2020-02-26 22:34] LABS: PARTIAL THROMBOPLASTIN TIME 29.5 SEC (23.5-35.8)
[2020-02-26 22:55] LABS: ALBUMIN 4.6 g/dL (3.5-5.0); ALKALINE PHOSPHATASE 67 U/L (38-126); ANION GAP 7 (5-19); ASPARTATE AMINO TRANSFERASE 31 U/L (17-59); BILIRUBIN,DIRECT 0.1 mg/dL (0.0-0.4); BILIRUBIN,TOTAL 0.4 mg/dL (0.2-1.3); BLOOD UREA NITROGEN 23 mg/dL (7-20); CALCIUM 9.8 mg/dL (8.4-10.2); CARBON DIOXIDE 26 mmol/L (22-30); CHLORIDE 106 mmol/L (98-107); GLUCOSE 89 mg/dL (75-110); POTASSIUM 4.2 mmol/L (3.6-5.0); TOTAL PROTEIN 7.9 g/dL (6.3-8.2)
[2020-02-27] MEDS ORDERED: KETOROLAC TROMETHAMINE INJ/PF 30 MG/1 ML SDV IV ONE (00:08)
[2020-02-27] MEDS ORDERED: HYDROCODONE/ACETAMINOPHEN 5-325 MG (6 TAB/ER DISP) PO PRN (00:08)
[2020-02-27] MEDS ORDERED: CLINDAMYCIN HCL 150 MG CAPSULE PO ONE (00:09)
[2020-02-27 00:19] VITALS: BP 131/84
== END 2020-02-27 00:27 | disposition home or self-care (01) ==
LOC: ER 20:06
DX: L03.031 Cellulitis of right toe (principal); M79.674 Pain in right toe(s); F17.200 Nicotine dependence, unspecified, uncomplicated; F12.10 Cannabis abuse, uncomplicated; I10 Essential (primary) hypertension
CPT/HCPCS: 99283; 96375; 96365; 36415; 87040; 85025; 85610; 85730; 80053; 73630; J3490; J1885

== ENCOUNTER 2020-03-15 14:53 | Inpatient (IN) | payer OTHER ==
--- NOTE | 2020-03-15 15:06 | ER Document Report ---
ED Medical Screen (RME) - General Chief Complaint: Foot Pain Stated Complaint: RIGHT FOOT PAIN Time Seen by Provider: 03/15/20 14:58 Primary Care Provider: PAGE ARANA MD [Primary Care Provider] - Follow up as needed Notes: Patient is a 59-year-old male who presents the emergency department with a chief complaint of right toe pain. Patient was seen here in the emergency department on February 25. States that he took his full course of clindamycin, had more clindamycin and Bactrim ordered by his primary care provider, and continues to have toe pain to his right second toe. Exam: Toe appears significantly worse than when he was seen here in the emergency department from previous visit. I have greeted and performed a rapid initial assessment of this patient. A comprehensive ED assessment and evaluation of the patient, analysis of test results and completion of medical decision making process will be conducted by an additional ED providers. TRAVEL OUTSIDE OF THE [place] IN LAST 30 DAYS: No - Related Data Allergies/Adverse Reactions: No Known Allergies Allergy (Verified 05/25/18 17:10) Past Medical History - Past Medical History Cardiac Medical History: Reports: Hx Hypertension Denies: Hx Coronary Artery Disease, Hx Heart Attack Pulmonary Medical History: Denies: Hx Asthma, Hx Bronchitis, Hx COPD, Hx Pneumonia Neurological Medical History: Denies: Hx Cerebrovascular Accident, Hx Seizures Renal/ Medical History: Denies: Hx Peritoneal Dialysis Musculoskeltal Medical History: Denies Hx Arthritis Past Surgical History: Reports: Hx Abdominal Surgery - hemicholectomy,, Hx Colostomy, Other - Septorhinoplasty in the remote past. - Immunizations Hx Diphtheria, Pertussis, Tetanus Vaccination: Yes Physical Exam - Vital signs Vitals: Temp Pulse Resp BP Pulse Ox 97.8 F 90 20 127/75 H 97 03/15/20 14:56 03/15/20 14:56 03/15/20 14:56 03/15/20 14:56 03/15/20 14:56 Course - Vital Signs Vital signs: Temp Pulse Resp BP Pulse Ox 97.8 F 90 20 127/75 H 97 03/15/20 14:56 03/15/20 14:56 03/15/20 14:56 03/15/20 14:56 03/15/20 14:56 Doctor's Discharge - Discharge Referrals: APGE ARANA MD [Primary Care Provider] - Follow up as needed
[2020-03-15 15:40] LABS: ABSOLUTE BASOPHILS # (AUTO) 0.1 10^3/uL (0.0-0.2); ABSOLUTE EOSINOPHILS # (AUTO) 0.6 10^3/uL (0.0-0.6); ABSOLUTE LYMPHOCYTES (AUTO) 2.8 10^3/uL (0.5-4.7); ABSOLUTE NEUT (AUTO) 5.7 10^3/uL (1.7-8.2); BASOPHILS % (AUTO) 0.5 % (0-2); EOSINOPHILS % (AUTO) 6.2 % (0-6); HEMATOCRIT 42.2 % (37.9-51.0); HEMOGLOBIN 14.9 g/dL (13.5-17.0); LYMPHOCYTES % (AUTO) 27.2 % (13-45); MEAN CORPUSCULAR HEMOGLOBIN 33.4 pg (27.0-33.4); MEAN CORPUSCULAR HGB CONC 35.3 g/dL (32.0-36.0); MEAN CORPUSCULAR VOLUME 95 fl (80-97); MONOCYTES % (AUTO) 10.1 % (3-13); PLATELET COUNT 241 10^3/uL (150-450); RED BLOOD COUNT 4.46 10^6/uL (4.35-5.55); RED CELL DISTRIBUTION WIDTH 13.3 % (11.5-14.0); TOTAL CELLS COUNTED % (AUTO) 100 %; WHITE BLOOD COUNT 10.2 10^3/uL (4.0-10.5)
--- NOTE | 2020-03-15 15:41 | RADIOLOGY REPORT (SQ) ---
EXAM DESCRIPTION: TOE RIGHT IMAGES COMPLETED DATE/TIME: 03/15/2020 3:21 pm REASON FOR STUDY: eval osteomylitis COMPARISON: None. NUMBER OF VIEWS: Two views. TECHNIQUE: AP and oblique images acquired of the right second toe. LIMITATIONS: None. FINDINGS: MINERALIZATION: Normal. BONES: No acute fracture or dislocation. No worrisome bone lesions. JOINTS: No effusions. SOFT TISSUES: No foreign body. OTHER: No other significant finding. IMPRESSION: No evidence of osteomyelitis. COMMENT: SITE OF TRAUMA/COMPLAINT MARKED/STAMP COMPLETED: YES. TECHNICAL DOCUMENTATION: JOB ID: [id number] 2010 [employer]- All Rights Reserved Reading location - IP/workstation name: [email or web address]
[2020-03-15 15:49] LABS: ALBUMIN 4.2 g/dL (3.5-5.0); ALKALINE PHOSPHATASE 69 U/L (38-126); ANION GAP 8 (5-19); ASPARTATE AMINO TRANSFERASE 28 U/L (17-59); BILIRUBIN,TOTAL 0.4 mg/dL (0.2-1.3); BLOOD UREA NITROGEN 16 mg/dL (7-20); CALCIUM 9.7 mg/dL (8.4-10.2); CARBON DIOXIDE 26 mmol/L (22-30); CHLORIDE 104 mmol/L (98-107); GLUCOSE 123 mg/dL (75-110); POTASSIUM 4.4 mmol/L (3.6-5.0); TOTAL PROTEIN 7.2 g/dL (6.3-8.2)
--- NOTE | 2020-03-15 16:03 | ER Document Report ---
ED Extremity Problem, Lower - General Chief Complaint: Wound Infection Stated Complaint: RIGHT FOOT PAIN Time Seen by Provider: 03/15/20 14:58 Mode of Arrival: Ambulatory Information source: Patient Notes: 59-year-old male presented to ED for complaint of pain to his right second toe. He has been seen multiple times since his toe first became infected the beginning of the month. He states he had a infected ingrown toenail which he tried to clean out his self which became much worse he went to the primary care was put on Keflex the infection got worse so he went to the emergency room was started on clindamycin. He states he went back to the primary care they put him on more clindamycin and then he was ordered Bactrim by his primary care. He states that he saw Dr. Magaña on Friday and he was supposed to be making a surgical consult for him to have the toe opened up and cleaned out as the patient states. He came in today for increased pain and significantly worse swelling and redness. His x-ray does not show any osteomyelitis at this time. His white count is 10.2 with a segs of 56. I have placed a call to talk to Dr. Magaña. Spoke with Dr. Magaña who stated that 1 of the ER doctors could open the toe or I could call the surgeon. I spoke with Dr. Johnson the surgeon. He states the entire toe needs to be removed. I will we call Dr. Magaña for admission. TRAVEL OUTSIDE OF THE [place] IN LAST 30 DAYS: No - HPI Patient complains to provider of: Pain, Swelling, Other - Black second toe right foot Location: 2nd Toe Occurred: Other - February Onset/Duration: Gradual, Worse Quality of pain: Sharp, Throbbing Severity: Severe Pain Level: 5 - Related Data Allergies/Adverse Reactions: No Known Allergies Allergy (Verified 05/25/18 17:10) Past Medical History - General Information source: Patient - Social History Smoking Status: Current Every Day Smoker Chew tobacco use (# tins/day): No Frequency of alcohol use: None Drug Abuse: None Lives with: Family Family History: COPD, Hypertension Patient has homicidal ideation: No - Past Medical History Cardiac Medical History: Reports: Hx Hypertension Pulmonary Medical History: Reports: None EENT Medical History: Reports: None Neurological Medical History: Reports: None Endocrine Medical History: Reports: None Renal/ Medical History: Reports: None Malignancy Medical History: Reports None GI Medical History: Reports: None Musculoskeletal Medical History: Reports None Skin Medical History: Reports Hx Cellulitis Psychiatric Medical History: Reports: None Traumatic Medical History: Reports: None Infectious Medical History: Reports: None Past Surgical History: Reports: Hx Abdominal Surgery - hemicholectomy,, Hx Colostomy, Other - Septorhinoplasty in the remote past. - Immunizations Hx Diphtheria, Pertussis, Tetanus Vaccination: Yes Review of Systems - Review of Systems Constitutional: No symptoms reported EENT: No symptoms reported Cardiovascular: No symptoms reported Respiratory: No symptoms reported Gastrointestinal: No symptoms reported Genitourinary: No symptoms reported Male Genitourinary: No symptoms reported Musculoskeletal: No symptoms reported Skin: Change in color, Dryness, Other - Black end of the second toe on the right foot Hematologic/Lymphatic: No symptoms reported Neurological/Psychological: No symptoms reported -: Yes All other systems reviewed and negative Physical Exam - Vital signs Vitals: Temp Pulse Resp BP Pulse Ox 97.8 F 90 20 127/75 H 97 03/15/20 14:56 03/15/20 14:56 03/15/20 14:56 03/15/20 14:56 03/15/20 14:56 Interpretation: Normal - General General appearance: Appears well, Alert - HEENT Head: Normocephalic, Atraumatic Eyes: Normal Pupils: PERRL - Respiratory Respiratory status: No respiratory distress Chest status: Nontender Breath sounds: Normal Chest palpation: Normal - Cardiovascular Rhythm: Regular Heart sounds: Normal auscultation Murmur: No - Abdominal Inspection: Normal Distension: No distension Bowel sounds: Normal Tenderness: Nontender Organomegaly: No organomegaly - Back Back: Normal, Nontender - Extremities General upper extremity: Normal inspection, Nontender, Normal color, Normal ROM, Normal temperature General lower extremity: Normal inspection, Nontender, Normal color, Normal ROM, Normal temperature, Normal weight bearing. No: Anu's sign - Neurological Neuro grossly intact: Yes Cognition: Normal Orientation: AAOx4 [place] Coma Scale Eye Opening: Spontaneous [place] Coma Scale Verbal: Oriented Lilian Coma Scale Motor: Obeys Commands Lilian Coma Scale Total: 15 Speech: Normal Motor strength normal: LUE, RUE, LLE, RLE Sensory: Normal - Psychological Associated symptoms: Normal affect, Normal mood - Skin Skin Temperature: Warm Skin Moisture: Dry Skin Color: Normal Location of irregularity: Extremities - Right second toe black cold extremely painful Character of irregularity: Other - End of the toe is black the whole toe is dark red Irregularity with: Swelling, Tenderness Course - Re-evaluation Re-evalutation: 03/15/20 21:[address] Magaña much earlier today. He stated I should get 1 of the ER doctors to open the black infection up. I explained to him that no ER doctor was going to open this black toe up. I told him that I would consult the surgeon to come and look at the toe. Dr. reynaga did come down and look at the toe and stated that the toe needed to be amputated. He did go in and talk to the patient explained to him that the time needed to be amputated. He stated since the patient had eaten on the way to the emergency room that he would not be able to safely remove the toe till tomorrow. He did asked that I call Dr. Magaña to admit the patient and he would be taken to surgery tomorrow. I did call Dr. Magaña he did agree to admit the patient to medical floor until surgery tomorrow. - Vital Signs Vital signs: Temp Pulse Resp BP Pulse Ox 97.8 F 78 18 108/71 96 03/15/20 15:00 03/15/20 20:59 03/15/20 20:59 03/15/20 20:59 03/15/20 20:59 - Laboratory Result Diagrams: 03/15/20 15:25 03/15/20 15:25 Laboratory results interpreted by me: 03/15/20 03/15/20 15:25 15:25 Eos % (Auto) 6.2 H Glucose 123 H - Diagnostic Test Radiology reviewed: Image reviewed, Reports reviewed Discharge - Discharge Clinical Impression: dry gangrene toe right second Disposition: ADMITTED INPATIENT Admitting Provider: [facility] Unit Admitted: Medical Floor
[2020-03-15] MEDS ORDERED: MORPHINE SULFATE 10 MG/ML INJ IV ONE (16:06)
[2020-03-15] MEDS ORDERED: ONDANSETRON HCL INJ/PF 4 MG/2 ML SDV IV PRN (16:06)
[2020-03-15] MEDS ORDERED: ACETAMINOPHEN 325 MG TABLET PO PRN (16:06)
--- NOTE | 2020-03-15 16:34 | RADIOLOGY REPORT (SQ) ---
EXAM DESCRIPTION: CHEST 2 VIEWS IMAGES COMPLETED DATE/TIME: 03/15/2020 4:26 pm REASON FOR STUDY: pre op COMPARISON: None. EXAM PARAMETERS: NUMBER OF VIEWS: two views TECHNIQUE: Digital Frontal and Lateral radiographic views of the chest acquired. RADIATION DOSE: NA LIMITATIONS: none FINDINGS: LUNGS AND PLEURA: No opacities, masses or pneumothorax. No pleural effusion. MEDIASTINUM AND HILAR STRUCTURES: No masses or contour abnormalities. HEART AND VASCULAR STRUCTURES: Heart normal size. No evidence for failure. BONES: No acute findings. HARDWARE: None in the chest. OTHER: No other significant finding. IMPRESSION: NO ACUTE RADIOGRAPHIC FINDING IN THE CHEST. TECHNICAL DOCUMENTATION: JOB ID: [id number] 2010 [employer]- All Rights Reserved Reading location - IP/workstation name: [email or web address]
[2020-03-15] MEDS: LACTOBACILLUS ACIDOPHILUS 250 MG TAB PO SCH (18:10)
[2020-03-15] MEDS: AMPICILLIN SODIUM/SULBACTAM NA 3 GM in NORMAL SALINE 100 ML IV SCH (18:11)
[2020-03-15] MEDS: NORMAL SALINE 1000 ML 1,000 ML IV PRN (18:16)
[2020-03-15] MEDS: OXYCODONE-ACETAMINOPHEN 5-325 MG TABLET PO PRN (20:22)
--- NOTE | 2020-03-15 20:26 | PDOC CONSULTATION ---
Consultation Consult Date: 03/15/20 Provider Consulted: SURGICAL SURGICALIST Consult reason:: gangrene, right second toe History of Present Illness Admission Date/PCP: 03/15/20 16:20 PAGE ARANA MD Patient complains of: pain and black discoloration of right second toe History of Present Illness: LORAINE GRIGSBY is a 59 year old male seen in consultation at the request of Dr. Arana. The pt denies a h/o DM. He does report PVD and venous insufficiency. He denies a h/o embolic phenomena or h/o A-fib. He reports a severely in-grown toenail with infection beginning several days ago. The pt reports that he then developed discoloration of his toe, then developed severe pain. He now has a black eschar present over the entire distal aspect of the toe, with erythema e xtending proximally up to the MTP joint. His pain is 6 out of ten. It is worse with movement and palpation. Narcotics make his pain better. His pain does not radiate. Past Medical History Cardiac Medical History: Reports: Hypertension Denies: Coronary Artery Disease, Myocardial Infarction Pulmonary Medical History: Denies: Asthma, Bronchitis, Chronic Obstructive Pulmonary Disease (COPD), Pneumonia Neurological Medical History: Denies: Seizures Musculoskeltal Medical History: Denies: Arthritis Hematology: Denies: Anemia Past Surgical History Past Surgical History: Reports: Colostomy, Other - Septorhinoplasty in the remote past. Social History Smoking Status: Current Every Day Smoker Electronic Cigarette use?: No Frequency of Alcohol Use: None Hx Recreational Drug Use: No Hx Prescription Drug Abuse: No Family History Family History: COPD, Hypertension Parental Family History Reviewed: Yes Children Family History Reviewed: Yes Sibling(s) Family History Reviewed.: Yes Medication/Allergy Home Medications: Amlodipine Besylate [Norvasc 10 mg Tablet] 10 mg PO DAILY 05/22/17 Levothyroxine Sodium [Synthroid 0.05 mg Tablet] 50 mcg PO DAILY 05/22/17 Acetaminophen [Tylenol] 650 mg PO Q6HP PRN 03/15/20 Carvedilol [Coreg 6.25 mg Tablet] 6.25 mg PO BID 03/15/20 Cetirizine HCl [Zyrtec] 10 mg PO DAILY 03/15/20 Cholecalciferol (Vitamin D3) [Vitamin D3 400 Unit Tablet] 400 unit PO DAILY 03/15/20 Hydrochlorothiazide [Hydrodiuril 12.5 mg Tablet] 12.5 mg PO DAILY 03/15/20 L.acidoph,Paracasei, B.lactis [Probiotic] 1 cap PO DAILY 03/15/20 Lisinopril 20 mg PO DAILY 03/15/20 Naproxen [Naprosyn 375 mg Tablet] 375 mg PO Q6HP PRN 03/15/20 Sulfamethoxazole/Trimethoprim [Septra-Ds 800-160 mg Tablet] 1 tab PO BID 03/15/20 Allergies/Adverse Reactions: No Known Allergies Allergy (Verified 05/25/18 17:10) Review of Systems Constitutional: ABSENT: anorexia, chills, fatigue Eyes: ABSENT: visual disturbances Ears: ABSENT: hearing changes Nose, Mouth, and Throat: ABSENT: sore throat Cardiovascular: ABSENT: chest pain Respiratory: ABSENT: cough Gastrointestinal: ABSENT: abdominal pain, bloating, constipation Genitourinary: ABSENT: difficulty urinating Musculoskeletal: ABSENT: back pain Integumentary: PRESENT: wounds, other - discoloration and pain of right 2nd toe Neurological: ABSENT: confusion, convulsions, dizziness Psychiatric: ABSENT: anxiety, depression Endocrine: ABSENT: cold intolerance Hematologic/Lymphatic: ABSENT: easy bleeding, easy bruising Physical Exam Vital Signs: Temp Pulse Resp BP Pulse Ox 97.8 F 90 20 127/75 H 97 03/15/20 15:00 03/15/20 14:56 03/15/20 14:56 03/15/20 14:56 03/15/20 14:56 Intake & Output 03/14/20 03/15/20 03/16/20 06:59 06:59 06:59 Intake Total 100 Balance 100 Weight 112.8 kg General appearance: PRESENT: no acute distress, cooperative Head exam: PRESENT: atraumatic, normocephalic Eye exam: PRESENT: EOMI, PERRLA. ABSENT: scleral icterus Mouth exam: PRESENT: neck supple Neck exam: ABSENT: meningismus, tenderness Respiratory exam: PRESENT: unlabored. ABSENT: chest wall tenderness, tachypnea, wheezes Cardiovascular exam: ABSENT: tachycardia Pulses: PRESENT: other - palpable right DP and PT GI/Abdominal exam: PRESENT: soft. ABSENT: distended, tenderness Rectal exam: PRESENT: deferred Extremities exam: PRESENT: other - gaiter sign Neurological exam: PRESENT: alert, awake, oriented to person, oriented to place, oriented to time, oriented to situation, CN II-XII grossly intact Psychiatric exam: ABSENT: agitated, anxious, depressed Focused psych exam: ABSENT: delusional Skin exam: PRESENT: erythema. ABSENT: cyanosis, jaundice Results Laboratory Results: 03/15/20 15:25 03/15/20 15:25 03/15/20 03/15/20 15:25 15:25 WBC 10.2 RBC 4.46 Hgb 14.9 Hct 42.2 MCV 95 MCH 33.4 MCHC 35.3 RDW 13.3 Plt Count 241 Seg Neutrophils % 56.0 Sodium 137.8 Potassium 4.4 Chloride 104 Carbon Dioxide 26 Anion Gap 8 BUN 16 Creatinine 0.98 Est GFR ( Amer) > 60 Glucose 123 H Calcium 9.7 Total Bilirubin 0.4 AST 28 Alkaline Phosphatase 69 Total Protein 7.2 Albumin 4.2 Impressions: Chest X-Ray 03/15/20 00:00 IMPRESSION: NO ACUTE RADIOGRAPHIC FINDING IN THE CHEST. Toe X-Ray 03/15/20 15:05 IMPRESSION: No evidence of osteomyelitis. Assessment & Plan - Diagnosis (1) Gangrene of toe of right foot Is this a current diagnosis for this admission?: Yes - Plan Summary Plan Summary: 59 y/o M with gangrene of the right 2nd toe. He has significant pain and worsening erythema. I do not believe that his toe is salvageable. The necrosis appears extensive. I have recommended amputation of the toe to resolve his pain and remove the necrotic tissue. He has agreed to this. Risks/benefits discussed, informed consent obtained, and all questions answered.
[2020-03-15] MEDS: CARVEDILOL 6.25 MG TABLET PO SCH (22:49)
[2020-03-15] MEDS: FAMOTIDINE 20 MG TABLET PO SCH (22:50)
[2020-03-16] MEDS: AMPICILLIN SODIUM/SULBACTAM NA 3 GM in NORMAL SALINE 100 ML IV SCH ×5 (00:31→23:56)
[2020-03-16] MEDS: OXYCODONE-ACETAMINOPHEN 5-325 MG TABLET PO PRN ×5 (00:32→23:55)
[2020-03-16 05:03] LABS: HEMATOCRIT 38.4 % (37.9-51.0); HEMOGLOBIN 13.6 g/dL (13.5-17.0); MEAN CORPUSCULAR HEMOGLOBIN 33.4 pg (27.0-33.4); MEAN CORPUSCULAR HGB CONC 35.3 g/dL (32.0-36.0); MEAN CORPUSCULAR VOLUME 95 fl (80-97); PLATELET COUNT 160 10^3/uL (150-450); RED BLOOD COUNT 4.06 10^6/uL (4.35-5.55); RED CELL DISTRIBUTION WIDTH 13.3 % (11.5-14.0); WHITE BLOOD COUNT 7.8 10^3/uL (4.0-10.5)
[2020-03-16] MEDS: LEVOTHYROXINE SODIUM 0.05 MG TABLET PO SCH (05:09)
[2020-03-16 05:24] LABS: ANION GAP 6 (5-19); BLOOD UREA NITROGEN 15 mg/dL (7-20); CALCIUM 9.2 mg/dL (8.4-10.2); CARBON DIOXIDE 25 mmol/L (22-30); CHLORIDE 106 mmol/L (98-107); GLUCOSE 109 mg/dL (75-110); POTASSIUM 4.3 mmol/L (3.6-5.0)
[2020-03-16] MEDS ORDERED: DEXTROSE 50%-WATER 25 GM/50 ML DISP.SYRIN IV PRN ×2 (06:06)
[2020-03-16] MEDS ORDERED: GLUCAGON,HUMAN RECOMB 1 MG INJ SUBCUT PRN (06:06)
[2020-03-16] MEDS ORDERED: DEXTROSE 40% GEL 15 GM TUBE PO PRN ×2 (06:06)
--- NOTE | 2020-03-16 09:24 | PDOC H&P ---
History of Present Illness Admission Date/PCP: 03/15/20 16:20 PAGE ARANA MD Patient complains of: Right second toe pain History of Present Illness: LORAINE GRIGSBY is a 59 year old male This is a 59-year-old male with a history of the hypertension hyperlipidemia history of the colon cancer currently follow the [facility] history of the colostomy status post revision recently have an issue with the second toe on the right leg went to the emergency department initially prescribed the Keflex .Patient not responding very well went again in the emergency departments start the patient on a clindamycin's and then came to see me was responding but still ongoing lawson with the right second toe infections and patient initially referred to the outpatient surgery but ongoing pandemic unable to see the surgeon in office finally patients came to the ER yesterday seen by the general surgery and suggest the patient need a right second toe amputation due to the extensive necrosis Patient's denied any fever no chills no chest pain no short of breath no heart disease no abdominal pain no nausea no vomiting Past Medical History Cardiac Medical History: Reports: Hypertension Denies: Coronary Artery Disease, Myocardial Infarction Pulmonary Medical History: Reports: None Denies: Asthma, Bronchitis, Chronic Obstructive Pulmonary Disease (COPD), Pneumonia EENT Medical History: Reports: None Neurological Medical History: Reports: None Denies: Seizures Endocrine Medical History: Reports: None Renal/ Medical History: Reports: None Malignancy Medical History: Reports: None, Colorectal Cancer GI Medical History: Reports: None Musculoskeltal Medical History: Reports: None Denies: Arthritis Psychiatric Medical History: Reports: None Traumatic Medical History: Reports: None Hematology: Denies: Anemia Infectious Medical History: Reports: None Past Surgical History Past Surgical History: Reports: Colostomy, Other - Septorhinoplasty in the remote past. Social History Information Source: Patient Lives with: Family Smoking Status: Current Every Day Smoker Cigarettes Packs Per Day: 1 Electronic Cigarette use?: No Number of Years Smokin Last Time Smoked: Today Frequency of Alcohol Use: None Hx Recreational Drug Use: Yes Drugs: Marijuana Hx Prescription Drug Abuse: No Family History Family History: None, COPD, Hypertension Parental Family History Reviewed: Yes Children Family History Reviewed: Yes Sibling(s) Family History Reviewed.: Yes Medication/Allergy Home Medications: Amlodipine Besylate [Norvasc 10 mg Tablet] 10 mg PO DAILY 05/22/17 Levothyroxine Sodium [Synthroid 0.05 mg Tablet] 50 mcg PO DAILY 05/22/17 Acetaminophen [Tylenol] 650 mg PO Q6HP PRN 03/15/20 Carvedilol [Coreg 6.25 mg Tablet] 6.25 mg PO BID 03/15/20 Cetirizine HCl [Zyrtec] 10 mg PO DAILY 03/15/20 Cholecalciferol (Vitamin D3) [Vitamin D3 400 Unit Tablet] 400 unit PO DAILY 03/15/20 Hydrochlorothiazide [Hydrodiuril 12.5 mg Tablet] 12.5 mg PO DAILY 03/15/20 L.acidoph,Paracasei, B.lactis [Probiotic] 1 cap PO DAILY 03/15/20 Lisinopril 20 mg PO DAILY 03/15/20 Naproxen [Naprosyn 375 mg Tablet] 375 mg PO Q6HP PRN 03/15/20 Sulfamethoxazole/Trimethoprim [Septra-Ds 800-160 mg Tablet] 1 tab PO BID 03/15/20 Allergies/Adverse Reactions: No Known Allergies Allergy (Verified 05/25/18 17:10) Review of Systems Constitutional: ABSENT: chills, fever(s), headache(s), weight gain, weight loss Eyes: ABSENT: visual disturbances Ears: ABSENT: hearing changes Cardiovascular: ABSENT: chest pain, dyspnea on exertion, edema, orthropnea, palpitations Respiratory: ABSENT: cough, hemoptysis Gastrointestinal: ABSENT: abdominal pain, constipation, diarrhea, hematemesis, hematochezia, nausea, vomiting Genitourinary: ABSENT: dysuria, hematuria Musculoskeletal: ABSENT: joint swelling Integumentary: ABSENT: rash, wounds Neurological: ABSENT: abnormal gait, abnormal speech, confusion, dizziness, focal weakness, syncope Psychiatric: ABSENT: anxiety, depression, homidical ideation, suicidal ideation Endocrine: ABSENT: cold intolerance, heat intolerance, menstrual abnormalities, polydipsia, polyuria Hematologic/Lymphatic: ABSENT: easy bleeding, easy bruising, lymphadenopathy Physical Exam Vital Signs: Temp Pulse Resp BP Pulse Ox 97.4 F 68 16 121/64 97 03/16/20 06:50 03/16/20 06:50 03/16/20 06:50 03/16/20 06:50 03/16/20 06:50 Intake & Output 04/29/20 04/30/20 05/01/20 06:59 06:59 06:59 Intake Total 780 Balance 780 Weight 112.8 kg General appearance: PRESENT: no acute distress, well-developed, well-nourished Head exam: PRESENT: atraumatic, normocephalic Eye exam: PRESENT: conjunctiva pink, EOMI, PERRLA. ABSENT: scleral icterus Ear exam: PRESENT: normal external ear exam Mouth exam: PRESENT: moist, tongue midline Neck exam: PRESENT: full ROM. ABSENT: carotid bruit, JVD, lymphadenopathy, thyromegaly Respiratory exam: PRESENT: clear to auscultation rory Cardiovascular exam: PRESENT: RRR. ABSENT: diastolic murmur, rubs, systolic murmur Vascular exam: PRESENT: normal capillary refill GI/Abdominal exam: PRESENT: normal bowel sounds, soft. ABSENT: distended, guarding, mass, organolmegaly, rebound, tenderness Rectal exam: PRESENT: deferred Extremities exam: ABSENT: pedal edema Additional comments: Right second toe dry gangrene is present Neurological exam: PRESENT: alert, awake, oriented to person, oriented to place, oriented to time, oriented to situation, CN II-XII grossly intact. ABSENT: motor sensory deficit Psychiatric exam: PRESENT: appropriate affect, normal mood. ABSENT: homicidal ideation, suicidal ideation Skin exam: PRESENT: dry, intact, warm. ABSENT: cyanosis, rash Results Laboratory Results: 03/16/20 04:43 03/16/20 04:43 03/15/20 03/15/20 03/16/20 15:25 15:25 04:43 WBC 10.2 7.8 RBC 4.46 4.06 L Hgb 14.9 13.6 Hct 42.2 38.4 MCV 95 95 MCH 33.4 33.4 MCHC 35.3 35.3 RDW 13.3 13.3 Plt Count 241 160 Seg Neutrophils % 56.0 Sodium 137.8 Potassium 4.4 Chloride 104 Carbon Dioxide 26 Anion Gap 8 BUN 16 Creatinine 0.98 Est GFR ( Amer) > 60 Glucose 123 H Calcium 9.7 Total Bilirubin 0.4 AST 28 Alkaline Phosphatase 69 Total Protein 7.2 Albumin 4.2 03/16/20 04:43 WBC RBC Hgb Hct MCV MCH MCHC RDW Plt Count Seg Neutrophils % Sodium 137.0 Potassium 4.3 Chloride 106 Carbon Dioxide 25 Anion Gap 6 BUN 15 Creatinine 0.89 Est GFR ( Amer) > 60 Glucose 109 Calcium 9.2 Total Bilirubin AST Alkaline Phosphatase Total Protein Albumin Impressions: Chest X-Ray 03/15/20 00:00 IMPRESSION: NO ACUTE RADIOGRAPHIC FINDING IN THE CHEST. Toe X-Ray 03/15/20 15:05 IMPRESSION: No evidence of osteomyelitis. Assessment & Plan - Diagnosis (1) Gangrene of toe of right foot Is this a current diagnosis for this admission?: Yes Plan: Follow-up with the general surgery continues to IV antibiotic (2) Adenocarcinoma of colon Is this a current diagnosis for this admission?: Yes Plan: Status post surgery patient is currently follow with the [facility] last colonoscopy was done in December 2019 (3) Hyperlipidemia Qualifiers: Hyperlipidemia type: unspecified Qualified Code(s): E78.5 - Hyperlipidemia, unspecified Is this a current diagnosis for this admission?: Yes (4) HTN (hypertension) Qualifiers: Hypertension type: essential hypertension Qualified Code(s): I10 - Essential (primary) hypertension Is this a current diagnosis for this admission?: Yes Plan: Continues to current medications - Time Time Spent: 30 to 50 Minutes Medications reviewed and adjusted accordingly: Yes Anticipated discharge: Home Within: Other - Inpatient Certification Based on my medical assessment, after consideration of the patient's comorbidities, presenting symptoms, or acuity I expect that the services needed warrant INPATIENT care.: Yes I certify that my determination is in accordance with my understanding of Medicare's requirements for reasonable and necessary INPATIENT services [42 CFR 412.3e].: Yes Medical Necessity: Failure to Improve With Outpatient Therapy, Need For IV Fluids, Need for IV Antibiotics, Need for Surgery 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
[2020-03-16] MEDS: FAMOTIDINE 20 MG TABLET PO SCH ×2 (09:48→21:53)
[2020-03-16] MEDS: LACTOBACILLUS ACIDOPHILUS 250 MG TAB PO SCH ×2 (09:48→17:32)
[2020-03-16] MEDS: CARVEDILOL 6.25 MG TABLET PO SCH ×2 (09:49→21:53)
[2020-03-16] MEDS ORDERED: HYDROCHLOROTHIAZIDE 12.5 MG TABLET PO SCH (10:00)
[2020-03-16] MEDS ORDERED: AMLODIPINE BESYLATE 10 MG TABLET PO SCH (10:00)
[2020-03-16] MEDS ORDERED: ENOXAPARIN SODIUM INJ 40 MG/0.4 ML DISP.SYRIN SUBCUT SCH (10:00)
[2020-03-16] MEDS ORDERED: (PENDING PHARMACY ID) (Lisinopril [Lisinopril] 20 MG) PO SCH (10:00)
[2020-03-16] MEDS ORDERED: CETIRIZINE 10 MG TABLET PO SCH (10:00)
[2020-03-16] MEDS ORDERED: LISINOPRIL 10 MG TABLET PO SCH (10:00)
[2020-03-16] MEDS: NORMAL SALINE 1000 ML 1,000 ML IV PRN (13:48)
[2020-03-16] MEDS ORDERED: MIDAZOLAM 2 MG/2 ML INJ ONE (14:07)
[2020-03-16] MEDS ORDERED: PROPOFOL INJ 200 MG/20 ML VIAL IV ONE (14:07)
[2020-03-16] MEDS ORDERED: FENTANYL CITRATE INJ/PF 100 MCG/2 ML AMPUL ONE (14:07)
[2020-03-16] MEDS ORDERED: ONDANSETRON HCL INJ/PF 4 MG/2 ML SDV IV PRN (14:30)
[2020-03-16] MEDS ORDERED: LIDOCAINE 1% INJ-PF (10 MG/ML) 30 ML SDV ONE (14:49)
[2020-03-16] MEDS ORDERED: MORPHINE SULFATE 10 MG/ML INJ IV PRN (14:58)
[2020-03-16] MEDS ORDERED: DIPHENHYDRAMINE HCL 50 MG/ML VIAL IV PRN (14:58)
[2020-03-16] MEDS ORDERED: PROMETHAZINE HCL INJ 25 MG/1 ML VIAL IV PRN ×2 (14:58)
[2020-03-16] MEDS ORDERED: FENTANYL CITRATE INJ/PF 100 MCG/2 ML AMPUL IV PRN ×3 (14:58)
[2020-03-16] MEDS ORDERED: MEPERIDINE HCL/PF INJ 25 MG/1 ML DISP.SYRIN IV PRN (14:58)
--- NOTE | 2020-03-16 15:03 | Operative Report ---
Nonrecallable Operative Report DATE OF SURGERY: 03/16/20 PREOPERATIVE DIAGNOSIS: Necrotic second toe. POSTOPERATIVE DIAGNOSIS: Necrotic second toe. OPERATION: Second toe ray amputation SURGEON: SHANE ANDERSON ANESTHESIA: Moderate Sedation TISSUE REMOVED OR ALTERED: Second toe COMPLICATIONS: None ESTIMATED BLOOD LOSS: 5 cc INTRAOPERATIVE FINDINGS: See note PROCEDURE: Procedure; patient was brought to the operating awake alert stable condition placed in the upper table supine position given IV sedation. After appropriate timeout site verification the procedure commenced. The right foot was prepped and draped in usual sterile manner. A elliptical incision was made circumferentially around the base of the right second toe. Dissection was carried down through subcutaneous tissue and the tendons with the 15 blade. Upon reaching the metatarsal the the periosteum was raised proximally and the metatarsal was divided at its mid portion with the bone cutters. The end of the metatarsal bone was smoothed with the bone rongeur. The subcutaneous tissue was then reapproximated interrupted 2-0 Vicryl and skin was reapproximated with interrupted 3-0 nylon. Sterile dressing was applied which completed the procedure. Estimated blood loss less than 5 cc sponge needle counts correct x2 patient was then transferred recovery in stable condition no complications
--- NOTE | 2020-03-16 18:18 | EKG REPORT ---
SEVERITY:- NORMAL ECG - SINUS RHYTHM : Confirmed by: Elma Tejada MD 16-Mar-2020 18:18:08
[2020-03-17] MEDS: OXYCODONE-ACETAMINOPHEN 5-325 MG TABLET PO PRN (03:59)
[2020-03-17] MEDS: AMPICILLIN SODIUM/SULBACTAM NA 3 GM in NORMAL SALINE 100 ML IV SCH (05:40)
[2020-03-17] MEDS: LEVOTHYROXINE SODIUM 0.05 MG TABLET PO SCH (05:40)
--- NOTE | 2020-03-17 07:45 | PDOC PROGRESS REPORT ---
Subjective Progress Note for:: 03/17/20 Subjective:: feels ok Reason For Visit: TOE CELLULITIS Physical Exam Vital Signs: Temp Pulse Resp BP Pulse Ox 97.9 F 65 17 108/67 97 03/17/20 04:00 03/17/20 04:00 03/17/20 04:00 03/17/20 04:00 03/17/20 04:00 Intake & Output 03/16/20 03/17/20 03/18/20 06:59 06:59 06:59 Intake Total 780 3300 Output Total 55 Balance 780 3245 Weight 112.8 kg 108.2 kg General appearance: PRESENT: no acute distress Head exam: PRESENT: normocephalic Eye exam: PRESENT: EOMI Mouth exam: PRESENT: moist Neck exam: PRESENT: full ROM Respiratory exam: PRESENT: clear to auscultation rory Cardiovascular exam: PRESENT: RRR Pulses: PRESENT: normal radial pulses, normal femoral pulses Breast: PRESENT: Normal GI/Abdominal exam: PRESENT: soft Extremities exam: PRESENT: full ROM, other - rt second toe amp site clean dressing changed, wound dry Neurological exam: PRESENT: alert, awake, oriented to person, oriented to place Psychiatric exam: PRESENT: appropriate affect Skin exam: PRESENT: dry Results Laboratory Results: 03/16/20 04:43 03/16/20 04:43 Impressions: Chest X-Ray 03/15/20 00:00 IMPRESSION: NO ACUTE RADIOGRAPHIC FINDING IN THE CHEST. Toe X-Ray 03/15/20 15:05 IMPRESSION: No evidence of osteomyelitis. Assessment & Plan - Plan Summary Plan Summary: impression\ s/p right 2nd toe amputation pod 1 doing well\ wound clean dry ok from surgery standpt for dc home. pt need to f/iu in 7-10 days in surgery clninc.
[2020-03-17 08:37] VITALS: BP 121/75
--- NOTE | 2020-03-17 08:43 | PDOC DISCHARGE SUMMARY ---
Impression - Admit/DC Date/PCP Admission Date/Primary Care Provider: 03/15/20 16:20 PAGE ARANA MD Discharge Date: 03/17/20 - Discharge Diagnosis (1) Gangrene of toe of right foot Is this a current diagnosis for this admission?: Yes (2) Adenocarcinoma of colon Is this a current diagnosis for this admission?: Yes (3) Hyperlipidemia Is this a current diagnosis for this admission?: Yes (4) HTN (hypertension) Is this a current diagnosis for this admission?: Yes - Additional Information Resuscitation Status: Full Code Discharge Diet: Regular Discharge Activity: Activity As Tolerated Referrals: SHANE ANDERSON MD [ACTIVE STAFF] - 03/29/20 9:45 am () Prescriptions: Hydrocodone/Acetaminophen [[place] 10-325 mg Tablet] 1 tab PO Q6HP PRN #15 tablet PRN Reason: Home Medications: Amlodipine Besylate [Norvasc 10 mg Tablet] 10 mg PO DAILY 05/22/17 Levothyroxine Sodium [Synthroid 0.05 mg Tablet] 50 mcg PO DAILY 05/22/17 Acetaminophen [Tylenol] 650 mg PO Q6HP PRN 03/15/20 Carvedilol [Coreg 6.25 mg Tablet] 6.25 mg PO BID 03/15/20 Cetirizine HCl [Zyrtec] 10 mg PO DAILY 03/15/20 Cholecalciferol (Vitamin D3) [Vitamin D3 400 Unit Tablet] 400 unit PO DAILY 03/15/20 Hydrochlorothiazide [Hydrodiuril 12.5 mg Tablet] 12.5 mg PO DAILY 03/15/20 L.acidoph,Paracasei, B.lactis [Probiotic] 1 cap PO DAILY 03/15/20 Lisinopril 20 mg PO DAILY 03/15/20 Naproxen [Naprosyn 375 mg Tablet] 375 mg PO Q6HP PRN 03/15/20 Sulfamethoxazole/Trimethoprim [Septra-Ds 800-160 mg Tablet] 1 tab PO BID 03/15/20 Hydrocodone/Acetaminophen [[place] 10-325 mg Tablet] 1 tab PO Q6HP PRN #15 tablet 03/17/20 History of Present Illiness History of Present Illness: LORAINE GRIGSBY is a 59 year old male This is a 59-year-old male with a history of the hypertension hyperlipidemia history of the colon cancer currently follow the [facility] history of the colostomy status post revision recently have an issue with the second toe on the right leg went to the emergency department initially prescribed the Keflex .Patient not responding very well went again in the emergency departments start the patient on a clindamycin's and then came to see me was responding but still ongoing lawson with the right second toe infections and patient initially referred to the outpatient surgery but ongoing pandemic unable to see the surgeon in office finally patients came to the ER yesterday seen by the general surgery and suggest the patient need a right second toe amputation due to the extensive necrosis Patient's denied any fever no chills no chest pain no short of breath no heart disease no abdominal pain no nausea no vomiting Hospital Course Hospital Course: This is a 59-year-old male have ongoing problems with the right second toe came to the emergency department with a complaint of increasing the pain and patient found some necrotic tissue underwent for the second toe amputations Patient is otherwise doing much better according to the general surgery patient's discharge home today with the p.o. pain medication and antibiotic Bactrim for 7 days According to the general surgery patient's needs to follow in office 1 week with him and patient needs some vascular work-up may be need a CT angiogram of the leg and a vascular surgery work-up he will follow-up with that She is otherwise doing well denied any other problems patient is asking for the crutches to walk Patient is discharged home with the p.o. antibiotics and patient is all know how to do the dressings Physical Exam Vital Signs: Temp Pulse Resp BP Pulse Ox 97.9 F 65 17 126/80 H 97 03/17/20 08:32 03/17/20 08:32 03/17/20 08:32 03/17/20 08:32 03/17/20 08:32 Intake & Output 03/16/20 03/17/20 03/18/20 06:59 06:59 06:59 Intake Total 780 3300 Output Total 55 Balance 780 3245 Weight 112.8 kg 108.2 kg General appearance: PRESENT: no acute distress, well-developed, well-nourished Head exam: PRESENT: atraumatic, normocephalic Eye exam: PRESENT: conjunctiva pink, EOMI, PERRLA. ABSENT: scleral icterus Ear exam: PRESENT: normal external ear exam Mouth exam: PRESENT: moist, tongue midline Neck exam: ABSENT: carotid bruit, JVD, lymphadenopathy, thyromegaly Respiratory exam: PRESENT: clear to auscultation rory. ABSENT: rales, rhonchi, wheezes Cardiovascular exam: PRESENT: RRR. ABSENT: diastolic murmur, rubs, systolic murmur Pulses: PRESENT: normal dorsalis pedis pul Vascular exam: PRESENT: normal capillary refill GI/Abdominal exam: PRESENT: normal bowel sounds, soft. ABSENT: distended, guarding, mass, organolmegaly, rebound, tenderness Rectal exam: PRESENT: deferred Extremities exam: PRESENT: full ROM. ABSENT: calf tenderness, clubbing, pedal edema Neurological exam: PRESENT: alert, awake, oriented to person, oriented to place, oriented to time, oriented to situation, CN II-XII grossly intact. ABSENT: motor sensory deficit Psychiatric exam: PRESENT: appropriate affect, normal mood. ABSENT: homicidal ideation, suicidal ideation Skin exam: PRESENT: dry, intact, warm. ABSENT: cyanosis, rash Results Laboratory Results: WBC 7.8 10^3/uL (4.0-10.5) 03/16/20 04:43 RBC 4.06 10^6/uL (4.35-5.55) L 03/16/20 04:43 Hgb 13.6 g/dL (13.5-17.0) 03/16/20 04:43 Hct 38.4 % (37.9-51.0) 03/16/20 04:43 MCV 95 fl (80-97) 03/16/20 04:43 MCH 33.4 pg (27.0-33.4) 03/16/20 04:43 MCHC 35.3 g/dL (32.0-36.0) 03/16/20 04:43 RDW 13.3 % (11.5-14.0) 03/16/20 04:43 Plt Count 160 10^3/uL (150-450) 03/16/20 04:43 Lymph % (Auto) 27.2 % (13-45) 03/15/20 15:25 [place] % (Auto) 10.1 % (3-13) 03/15/20 15:25 Eos % (Auto) 6.2 % (0-6) H 03/15/20 15:25 Baso % (Auto) 0.5 % (0-2) 03/15/20 15:25 Absolute Neuts (auto) 5.7 10^3/uL (1.7-8.2) 03/15/20 15:25 Absolute Lymphs (auto) 2.8 10^3/uL (0.5-4.7) 03/15/20 15:25 Absolute Monos (auto) 1.0 10^3/uL (0.1-1.4) 03/15/20 15:25 Absolute Eos (auto) 0.6 10^3/uL (0.0-0.6) 03/15/20 15:25 Absolute Basos (auto) 0.1 10^3/uL (0.0-0.2) 03/15/20 15:25 Seg Neutrophils % 56.0 % (42-78) 03/15/20 15:25 Sodium 137.0 mmol/L (137-145) 03/16/20 04:43 Potassium 4.3 mmol/L (3.6-5.0) 03/16/20 04:43 Chloride 106 mmol/L (98-107) 03/16/20 04:43 Carbon Dioxide 25 mmol/L (22-30) 03/16/20 04:43 Anion Gap 6 (5-19) 03/16/20 04:43 BUN 15 mg/dL (7-20) 03/16/20 04:43 Creatinine 0.89 mg/dL (0.52-1.25) 03/16/20 04:43 Est GFR ( Amer) > 60 (>60) 03/16/20 04:43 Est GFR (MDRD) Non-Af > 60 (>60) 03/16/20 04:43 Glucose 109 mg/dL (75-110) 03/16/20 04:43 Calcium 9.2 mg/dL (8.4-10.2) 03/16/20 04:43 Total Bilirubin 0.4 mg/dL (0.2-1.3) 03/15/20 15:25 Direct Bilirubin 0.0 mg/dL (0.0-0.4) 03/15/20 15:25 Neonat Total Bilirubin Not Reportable 03/15/20 15:25 Neonat Direct Bilirubin Not Reportable 03/15/20 15:25 Neonat Indirect Bili Not Reportable 03/15/20 15:25 AST 28 U/L (17-59) 03/15/20 15:25 ALT 29 U/L (<50) 03/15/20 15:25 Alkaline Phosphatase 69 U/L (38-126) 03/15/20 15:25 Total Protein 7.2 g/dL (6.3-8.2) 03/15/20 15:25 Albumin 4.2 g/dL (3.5-5.0) 03/15/20 15:25 Impressions: Chest X-Ray 03/15/20 00:00 IMPRESSION: NO ACUTE RADIOGRAPHIC FINDING IN THE CHEST. Toe X-Ray 03/15/20 15:05 IMPRESSION: No evidence of osteomyelitis. Plan Time Spent: Greater than 30 Minutes - Follow-up with the general surgery and aneurysm vascular work-up Stroke Is this a Stroke Patient?: No Acute Heart Failure - Is this a Heart Failure Patient?: No
== END 2020-03-17 09:16 | disposition home or self-care (01) | DRG 257 ==
LOC: ER 14:53 → EH 16:20 → 4N 21:40
PROVIDERS: ADMIT Family Medicine; ATTEND Family Medicine
PROC: 0Y6R0Z0 Detachment at Right 2nd Toe, Complete, Open Approach (ICD-10-PCS; principal; 2020-03-16 13:00)
DX: I96 Gangrene, not elsewhere classified (principal); I10 Essential (primary) hypertension; E78.5 Hyperlipidemia, unspecified; I87.2 Venous insufficiency (chronic) (peripheral); L60.0 Ingrowing nail; F17.210 Nicotine dependence, cigarettes, uncomplicated; Z85.038 Personal history of other malignant neoplasm of large intestine; Z82.49 Family history of ischemic heart disease and other diseases of the circulatory system; Z79.899 Other long term (current) drug therapy
CPT/HCPCS: 01480; 36415; 71046; 80048; 80053; 85025; 85027; 87040; 88305; 88311; 93005; 93010; 96374; 99285; J0295; J2250; J2270; J2405; J2704; J3010; J3490; J7030; J7050

== ENCOUNTER → 2020-09-14 | Outpatient (CLI) | payer OTHER ==
--- NOTE | 2020-09-14 16:38 | RADIOLOGY REPORT (SQ) ---
EXAM DESCRIPTION: ARTERIAL LOWER EXTREM BILAT IMAGES COMPLETED DATE/TIME: 09/14/2020 2:27 pm REASON FOR STUDY: PVD I73.9 PERIPHERAL VASCULAR DISEASE, UNSPECIFIED COMPARISON: None. TECHNIQUE: Dynamic and static oakley scale and color images acquired of the lower extremity arteries. Additional selected spectral images recorded. LIMITATIONS: None. FINDINGS: RIGHT LEG: INFLOW ARTERIES: Not imaged. FEMORAL ARTERIES:Multiphasic waveforms. Normal, no velocity elevation to suggest focal stenosis. Norm al color Doppler evaluation. No aneurysm. POPLITEAL ARTERY:Multiphasic waveforms. Normal, no velocity elevation to suggest focal stenosis. Norm al color Doppler evaluation. No aneurysm. PATENT TIBIOPERONEAL TRUNK AND 3 VESSEL RUNOFF: Yes. OTHER: No other significant finding. LEFT LEG: INFLOW ARTERIES: Not imaged. FEMORAL ARTERIES:Multiphasic waveforms. Normal, no velocity elevation to suggest focal stenosis. Norm al color Doppler evaluation. No aneurysm. POPLITEAL ARTERY:Multiphasic waveforms. Normal, no velocity elevation to suggest focal stenosis. Norm al color Doppler evaluation. No aneurysm. PATENT TIBIOPERONEAL TRUNK AND 3 VESSEL RUNOFF: Yes, normal vessels. OTHER: No other significant finding. IMPRESSION: No significant stenosis. TECHNICAL DOCUMENTATION: JOB ID: [id number] 2010 [employer]- All Rights Reserved Reading location - IP/workstation name: [email or web address]
== END ==
LOC: SP 12:58
PROVIDERS: ATTEND Family Medicine
DX: I73.9 Peripheral vascular disease, unspecified (principal)
CPT/HCPCS: 93925

== ENCOUNTER → 2020-11-08 | Outpatient (CLI) | payer OTHER ==
--- NOTE | 2020-11-08 15:18 | RADIOLOGY REPORT (SQ) ---
EXAM DESCRIPTION: VENOUS UNILATERAL LOWER IMAGES COMPLETED DATE/TIME: 11/08/2020 3:06 pm REASON FOR STUDY: RLE PAIN M79.604 PAIN IN RIGHT LEG COMPARISON: None. TECHNIQUE: Dynamic and static oakley scale and color images acquired of the right leg venous system. S elected spectral images acquired with additional compression and augmentation maneuvers. The contrala teral common femoral vein and saphenofemoral junction were also imaged. Images stored on PACS. LIMITATIONS: None. FINDINGS: COMMON FEMORAL: Normal phasicity, compression and augmentation. No visualized echogenic ma terial on oakley scale. No defects on color images. FEMORAL: Normal compression and augmentation. No visualized echogenic material on oakley scale. No defe cts on color images. POPLITEAL: Normal compression, augmentation. No visualized echogenic material on oakley scale. No defec ts on color images. CALF VESSELS: Normal compression, augmentation. No visualized echogenic material on oakley scale. No de fects on color images. GSV and SSV: Normal compression, augmentation. No visualized echogenic material on oakley scale. No def ects on color images. ANY DEEP VENOUS INSUFFICIENCY: Not evaluated. ANY EVIDENCE OF POPLITEAL CYST: No. OTHER: No other significant finding. CONTRALATERAL COMMON FEMORAL VEIN AND SAPHENOFEMORAL JUNCTION: Normal phasicity, compression and augmentation. No visualized echogenic material on oakley scale. No de fects on color images. IMPRESSION: NO EVIDENCE DVT OR SVT IN THE RIGHT LEG. TECHNICAL DOCUMENTATION: JOB ID: [id number] 2010 [employer]- All Rights Reserved Reading location - IP/workstation name: [email or web address]
== END ==
LOC: RAD 12:56
PROVIDERS: ATTEND Family Medicine
DX: M79.604 Pain in right leg (principal)
CPT/HCPCS: 93971